=== PATIENT | female | born 1970 | race Caucasian/White ===

== ENCOUNTER 2016-11-09 07:28 | Observation (INO) | payer OTHER ==
[~2016-11-09] VITALS: Ht 170.2 cm; Wt 64.7 kg
[2016-11-09] VITALS (7 sets, daily range): BP systolic 108–137; BP diastolic 65–89; PULSE 55–94; TEMP 36.3–37; O2SAT 93–100; Ht 170.2 cm; Wt 64.7 kg
[2016-11-09] MEDS ORDERED: SODIUM CHLORIDE 0.9% 1000ML 1,000 ML IV STA (07:46)
[2016-11-09] MEDS ORDERED: ONDANSETRON INJ 2 MG/ML 2 ML VIAL IV STA (07:46)
--- NOTE | 2016-11-09 07:57 | EMERGENCY ROOM VISIT NOTE ---
History Report prepared by Brina: Edward Buck Under the Supervision of: Dr. Cody Griffin M.D. First contact with patient: 07:38 Chief Complaint: GI ASSESSMENT Stated Complaint: BLEEDING,VOMITING BLOOD,BLOOD IN STOOL Nursing Triage Summary: pt to the ED with c/o vomitting blood and having blood in her stool with LUQ pain History of Present Illness The patient is a 46 year old female with a history of a bleeding ulcer and a partial gastrectomy who presents to the Emergency Room with complaints of a persistent illness that started yesterday. She says that she has been vomiting blood in addition to having blood in her stool. The patient states that she has had 3 episodes of vomiting since yesterday. She says that the blood in her vomit has been bright red, and the blood in her stool has been both bright and dark. The patient says that she is concerned that she is having another ulcer, as she is having similar symptoms as to when she has had ulcers previously. She adds that she has been having left upper quadrant abdominal pain that she describes as stabbing, with no radiation. The patient says that she has been lightheaded and dizzy, and can't keep anything down. She denies any loss of consciousness or urinary symptoms. The patient notes that she has not had any recent falls or head trauma. She is not on any blood thinners. She takes Topamax and Gabapentin daily for her migraines and neuropathy. She last had an endoscopy and colonoscopy 2 years ago, with no noted varices. She denies any recent sick contacts. The patient does have a history of a . She uses tobacco products, but does not drink alcohol or use recreational drugs. Source of History: patient Onset: Yesterday Position: other (global - illness) Timing: other (persistent) Associated Symptoms: + nausea, + vomiting (blood), + abdominal pain (LUQ), + hematochezia, No LOC, No urinary symptoms Note: Associated symptoms: Lightheaded, dizzy. Denies any recent trauma. Review of Systems See HPI for pertinent positives and negatives. A total of ten systems were reviewed and were otherwise negative. Past Medical & Surgical Medical Problems: (1) GI bleed (2) Migraines (3) Neuropathy Surgical Problems: (1) H/O section (2) History of gastrectomy (3) Ulcer Family History Diabetes mellitus FH: cancer Hypertension Social History Smoking Status: Current Every Day Smoker Alcohol Use: none Drug Use: none Marital Status: single Occupation Status: employed Current/Historical Medications Scheduled Gabapentin (Neurontin), 800 MG PO TID Topiramate (Topamax), 50 MG PO BID Allergies Coded Allergies: Ketorolac Tromethamine (Unverified Allergy, Intermediate, SWELLING/HIVES, 11/09/16) Physical Exam Vital Signs Date Time Temp Pulse Resp B/P (MAP) Pulse Ox O2 Delivery O2 Flow Rate FiO2 11/09/16 09:03 69 17 99 11/09/16 08:33 73 12 11/09/16 08:28 73 18 11/09/16 08:25 72 11/09/16 07:40 132/89 11/09/16 07:32 36.8 91 18 136/77 97 Physical Exam GENERAL: Well appearing but looks anxious. HENT: Normocephalic, atraumatic. Oropharynx unremarkable. EYES:. Sclera non-icteric. NECK: Supple. No nuchal rigidity. FROM. No JVD. RESPIRATORY: Clear to auscultation. CARDIAC: Regular rate, normal rhythm. Extremities warm and well perfused. Pulses equal. ABDOMEN: Soft, non-distended. Tenderness in epigastric and left upper quadrant, no rebound, no guarding. RECTAL: No gross blood, non-melenic stool, negative Hemoccult. LOWER EXTREMITIES: Calves are equal size bilaterally and non-tender. No edema. No discoloration. NEURO: GCS of 15. Ambulates without difficulty. SKIN: No rash or jaundice noted. Medical Decision & Procedures Laboratory Results 11/09/16 08:09 Red Blood Count 4.44, Mean Corpuscular Volume 89.0, Mean Corpuscular Hemoglobin 27.0, Mean Corpuscular Hemoglobin Concent 30.4, Mean Platelet Volume 9.3, Neutrophils (%) (Auto) 65.0, Lymphocytes (%) (Auto) 28.3, Monocytes (%) (Auto) 4.5, Eosinophils (%) (Auto) 1.6, Basophils (%) (Auto) 0.5, Neutrophils # (Auto) 5.75, Lymphocytes # (Auto) 2.50, Monocytes # (Auto) 0.40, Eosinophils # (Auto) 0.14, Basophils # (Auto) 0.04 11/09/16 08:09 Test 8/2/17 08:09 White Blood Count 8.84 K/uL (4.8-10.8) Red Blood Count 4.44 M/uL (4.2-5.4) Hemoglobin 12.0 g/dL (12.0-16.0) Hematocrit 39.5 % (37-47) Mean Corpuscular Volume 89.0 fL (80-100) Mean Corpuscular Hemoglobin 27.0 pg (25-34) Mean Corpuscular Hemoglobin Concent 30.4 g/dl (32-36) Platelet Count 208 K/uL (130-400) Mean Platelet Volume 9.3 fL (7.4-10.4) Neutrophils (%) (Auto) 65.0 % Lymphocytes (%) (Auto) 28.3 % Monocytes (%) (Auto) 4.5 % Eosinophils (%) (Auto) 1.6 % Basophils (%) (Auto) 0.5 % Neutrophils # (Auto) 5.75 K/uL (1.4-6.5) Lymphocytes # (Auto) 2.50 K/uL (1.2-3.4) Monocytes # (Auto) 0.40 K/uL (0.11-0.59) Eosinophils # (Auto) 0.14 K/uL (0-0.5) Basophils # (Auto) 0.04 K/uL (0-0.2) RDW Standard Deviation 73.4 fL (36.4-46.3) RDW Coefficient of Variation 23.2 % (11.5-14.5) Immature Granulocyte % (Auto) 0.1 % Immature Granulocyte # (Auto) 0.01 K/uL (0.00-0.02) Anisocytosis PRESENT Prothrombin Time 10.7 SECONDS (9.0-12.0) Prothromb Time International Ratio 1.0 (0.9-1.1) Activated Partial Thromboplast Time 27.5 SECONDS (21.0-31.0) Partial Thromboplastin Ratio 1.1 Anion Gap 7.0 mmol/L (3-11) Est Creatinine Clear Calc Drug Dose 110.9 ml/min Estimated GFR () 125.1 Estimated GFR (Non- 108.0 BUN/Creatinine Ratio 19.8 (10-20) Calcium Level 7.8 mg/dl (8.5-10.1) Total Bilirubin 0.1 mg/dl (0.2-1) Direct Bilirubin < 0.1 mg/dl (0-0.2) Aspartate Amino Transf (AST/SGOT) 19 U/L (15-37) Alanine Aminotransferase (ALT/SGPT) 26 U/L (12-78) Alkaline Phosphatase 45 U/L (45-117) Total Protein 6.3 gm/dl (6.4-8.2) Albumin 3.3 gm/dl (3.4-5.0) Globulin 3.0 gm/dl (2.5-4.0) Albumin/Globulin Ratio 1.1 (0.9-2) Lipase 136 U/L (73-393) Laboratory results reviewed by me Medications Administered Medications (Trade) Dose Ordered Sig/Saurabh Route Start Time Stop Time Status Last Admin Dose Admin Sodium Chloride 1,000 ml @ 999 mls/hr Q1H1M STAT IV 11/09/16 07:46 11/09/16 08:46 DC 11/09/16 08:32 999 MLS/HR Ondansetron HCl (Zofran Inj) 4 mg NOW STAT IV 11/09/16 07:46 11/09/16 07:50 DC 11/09/16 08:31 4 MG Pantoprazole Sodium 80 mg/ Dextrose 120 ml @ 480 mls/hr TODAY@0800 ONCE IV 11/09/16 08:00 11/09/16 08:14 DC 11/09/16 08:32 480 MLS/HR Pantoprazole Sodium 40 mg/ Dextrose 100 ml @ 20 mls/hr Q5H IV 11/09/16 08:15 11/09/16 13:14 DC 11/09/16 08:32 20 MLS/HR Morphine Sulfate (MoRPHine SULFATE INJ) 4 mg NOW STAT IV 11/09/16 08:49 11/09/16 08:50 DC 11/09/16 08:56 4 MG ED Course 0738: The patient was evaluated in room B6. A complete history and physical exam was performed. 0746: Ordered Protonix IV Bolus/Drip 1 ea IV, Zofran Inj 4 mg IV, NSS 1000 ml @ 999 mls/hr IV. 0800: Ordered Pantoprazole Sodium 80 mg/Dextrose 120 ml @ 480 mls/hr IV. 0814: I reevaluated and performed a rectal exam on the patient. 0815: Ordered Pantoprazole Sodium 40 mg/Dextrose 100 ml @ 20 mls/hr IV. 0849: Ordered Morphine Sulfate Inj 4 mg IV. 0851: Upon reexamination, the patient was resting comfortably. I discussed the test results and treatment plan with her. She expressed understanding and agreement with the treatment plan. The patient will be evaluated for further management. 911: I discussed the patient with Dr. Saran ruiz - he will evaluate the patient for further treatment. Medical Decision Differential diagnosis includes but is not limited to: peptic ulcer disease, upper GI bleed, lower GI bleed, gastritis, gastroenteritis, IBD. 46-year-old white female past with history of PUD status post gastrectomy and history of alcohol abuse who presents with chief complaint of hematemesis as well as bright red blood per rectum. Patient states she is concerned as she has had a history of a gastric ulcer in the past. Patient does admit to smoking but denies any alcohol or drug abuse. Patient does not have any history of inflammatory bowel disease and no history of variceal bleeds. Patient states that she had an endoscopy completed 2 years ago in [place]. Patient had labs were completed which showed a fairly normal hemoglobin and normal coags and platelets. Patient had a negative Hemoccult. However, in light of her purported hematemesis and her history of PUD status post gastrectomy I spoke with the hospitalist service who agreed that patient would benefit from an observation period in the hospital for further evaluation observation and management. Head Trauma GCS Score: 15 Medication Reconcilliation Current Medication List: was personally reviewed by me Blood Pressure Screening Patient's blood pressure: Elevated blood pressure Blood pressure disposition: Elevated BP felt to be situational Consults Time Called: 904 Consulting Physician: Dr. Saran ruiz Returned Call: 911 I discussed the patient with Dr[facility] the patient for further treatment. Impression Primary Impression: Upper GI bleed Scribe Attestation The scribe's documentation has been prepared under my direction and personally reviewed by me in its entirety. I confirm that the note above accurately reflects all work, treatment, procedures, and medical decision making performed by me. Departure Information Dispostion Being Evaluated By Hospitalist Referrals No Doctor, Assigned (PCP) Patient Instructions My [facility]
[2016-11-09] MEDS ORDERED: PANTOprazole INJ 80 MG in DEXTROSE 5% 100ML IV ONE (08:00)
[2016-11-09] MEDS ORDERED: PANTOprazole INJ 40 MG in DEXTROSE 5% 100ML IV SCH (08:15)
[2016-11-09] MEDS ORDERED: GABA800T PO (08:20)
[2016-11-09] MEDS ORDERED: TOPI50TA24 PO (08:20)
[2016-11-09 08:25] LABS: BASO % 0.5 %; BASO ABS # 0.04 K/uL (0-0.2); EOS % 1.6 %; HEMATOCRIT 39.5 % (37-47); IG% 0.1 %; LYMPH % 28.3 %; MEAN CORPUSCULAR HGB CONC 30.4 g/dl (32-36); MEAN PLATELET VOLUME 9.3 fL (7.4-10.4); MONO % 4.5 %; PLATELET COUNT 208 K/uL (130-400); RED BLOOD COUNT 4.44 M/uL (4.2-5.4); WHITE BLOOD COUNT 8.84 K/uL (4.8-10.8)
[2016-11-09 08:34] LABS: PARTIAL THROMBOPLASTIN RATIO 1.1; PROTHROMBIN TIME (PATIENT) 10.7 SECONDS (9.0-12.0)
[2016-11-09 08:42] LABS: BLOOD UREA NITROGEN 12 mg/dl (7-18); CREATININE 0.61 mg/dl (0.60-1.20); GLUCOSE 79 mg/dl (70-99)
[2016-11-09 08:43] LABS: ALT/SGPT 26 U/L (12-78); BUN/CREATININE RATIO 19.8 (10-20); CALCIUM 7.8 mg/dl (8.5-10.1); CARBON DIOXIDE 21 mmol/L (21-32); CHLORIDE 114 mmol/L (98-107); POTASSIUM 3.5 mmol/L (3.5-5.1); SODIUM 142 mmol/L (136-145)
[2016-11-09 08:45] LABS: ALB/GLOB RATIO 1.1 (0.9-2); ALKALINE PHOSPHATASE 45 U/L (45-117); AST/SGOT 19 U/L (15-37)
[2016-11-09] MEDS ORDERED: MoRPHine SULFATE 4 MG/ML 1 ML CARP\\VIAL IV STA (08:49)
[2016-11-09 08:50] LABS: ANISOCYTOSIS PRESENT; COMPLETE YES
[2016-11-09] MEDS ORDERED: ONDANSETRON INJ 2 MG/ML 2 ML VIAL IV PRN (09:45)
[2016-11-09] MEDS ORDERED: ACETAMINOPHEN 325 MG TAB PO PRN (09:45)
[2016-11-09] MEDS ORDERED: IV FLUIDS COMPLETED PRN (10:00)
[2016-11-09] MEDS ORDERED: OPTIRAY 320 IV PRN (10:45)
[2016-11-09] MEDS: HYDROmorphone INJ 0.5 MG/0.5 ML SYR IV PRN ×3 (11:00→21:13)
--- NOTE | 2016-11-09 11:03 | History and Physical ---
History & Physical Date & Time of Service: Nov 09, 2016 at 10:26 Chief Complaint: Bleeding,Vomiting Blood,Blood In Stool Primary Care Physician: No Doctor, Assigned History of Present Illness Source: patient, hospital records This is a 46F with PMH of H. Pylori gastric ulcer s/p partial gastrectomy 2007 who presents with GI bleeding. Patient moved here few days ago from [place] and is staying in [facility]. She reports diarrhea for 1.5 weeks with intermittent bright red blood mixed in the stool. Then since yesterday had 3 episodes of vomiting bright red blood. Yesterday also developed dark tarry stool mixed with bright red blood, noting that today bright red blood filled the toilet. For past 1-2 days has LUQ stabbing pain non-radiating and soreness across lower abdomen. Pain is worse with ambulating. Still feeling pain and nausea despite morphine and Zofran given in ER. States she can't keep anything down including meds. Has been lightheaded and fatigued. Denies fever, chills, syncope, chest pain, SOB, coffee ground emesis, urinary changes. Denies taking NSAIDs or blood thinners. Denies etoh use. No recent travel, sick contact , recent abx use. Her gastrectomy was done in [place]. Last EGD was 2+ years ago ? in [place] area. Last colonoscopy 2+ years ago showed diverticulosis and polyps per patient. In the ED patient's Hg is 12.0. Vitals are stable. Hemoccult was negative for ER provider. Past Medical/Surgical History Medical Problems: (1) Migraines Status: Chronic (2) Neuropathy Status: Chronic Surgical Problems: (1) H/O section Status: Chronic (2) History of gastrectomy Status: Resolved (3) Ulcer Status: Resolved Family History Diabetes mellitus FH: cancer Hypertension Social History Smoking Status: Current Every Day Smoker (/ ppd) Alcohol Use: none Drug Use: none Housing status: other (staying in [facility]. moved here a few days ago from [place]. ) Multi-Drug Resistant Organisms History of MDRO: No Allergies Coded Allergies: Ketorolac Tromethamine (Unverified Allergy, Intermediate, SWELLING/HIVES, 11/09/16) Home Medications Scheduled Gabapentin (Neurontin), 800 MG PO TID Topiramate (Topamax), 50 MG PO BID Review of Systems Ten systems reviewed and negative except as noted in HPI. Physical Exam Vital Signs Date Time Temp Pulse Resp B/P (MAP) Pulse Ox O2 Delivery O2 Flow Rate FiO2 11/09/16 09:33 66 13 11/09/16 09:03 69 17 99 11/09/16 08:33 73 12 11/09/16 08:28 73 18 11/09/16 08:25 72 11/09/16 07:40 132/89 11/09/16 07:32 36.8 91 18 136/77 97 General Appearance: WD/WN, + mild distress (anxious, becomes mildly tearful during examination), + pertinent finding (alert coopeartive 46 y/o female) Head: normocephalic, atraumatic Eyes: normal inspection, PERRL, EOMI ENT: hearing grossly normal, pharynx normal Neck: supple, trachea midline Respiratory/Chest: lungs clear, normal breath sounds, no respiratory distress, no accessory muscle use Cardiovascular: regular rate, rhythm, no murmur Abdomen/GI: normal bowel sounds, soft, + pertinent finding (tender in LUQ) Back: no CVA tenderness Extremities/Musculoskelatal: no calf tenderness, no pedal edema Neurologic/Psych: alert, oriented x 3, + pertinent finding (anxious) Skin: normal color, warm/dry Diagnostics Laboratory Results Results Past 24 Hours Test 11/09/16 08:09 11/09/16 09:43 Range/Units White Blood Count 8.84 4.8-10.8 K/uL Red Blood Count 4.44 4.2-5.4 M/uL Hemoglobin 12.0 12.0-16.0 g/dL Hematocrit 39.5 37-47 % Mean Corpuscular Volume 89.0 80-100 fL Mean Corpuscular Hemoglobin 27.0 25-34 pg Mean Corpuscular Hemoglobin Concent 30.4 32-36 g/dl Platelet Count 208 130-400 K/uL Mean Platelet Volume 9.3 7.4-10.4 fL Neutrophils (%) (Auto) 65.0 % Lymphocytes (%) (Auto) 28.3 % Monocytes (%) (Auto) 4.5 % Eosinophils (%) (Auto) 1.6 % Basophils (%) (Auto) 0.5 % Neutrophils # (Auto) 5.75 1.4-6.5 K/uL Lymphocytes # (Auto) 2.50 1.2-3.4 K/uL Monocytes # (Auto) 0.40 0.11-0.59 K/uL Eosinophils # (Auto) 0.14 0-0.5 K/uL Basophils # (Auto) 0.04 0-0.2 K/uL RDW Standard Deviation 73.4 36.4-46.3 fL RDW Coefficient of Variation 23.2 11.5-14.5 % Immature Granulocyte % (Auto) 0.1 % Immature Granulocyte # (Auto) 0.01 0.00-0.02 K/uL Anisocytosis PRESENT Prothrombin Time 10.7 9.0-12.0 SECONDS Prothromb Time International Ratio 1.0 0.9-1.1 Activated Partial Thromboplast Time 27.5 21.0-31.0 SECONDS Partial Thromboplastin Ratio 1.1 Sodium Level 142 136-145 mmol/L Potassium Level 3.5 3.5-5.1 mmol/L Chloride Level 114 98-107 mmol/L Carbon Dioxide Level 21 21-32 mmol/L Anion Gap 7.0 3-11 mmol/L Blood Urea Nitrogen 12 7-18 mg/dl Creatinine 0.61 0.60-1.20 mg/dl Est Creatinine Clear Calc Drug Dose 110.9 ml/min Estimated GFR () 125.1 Estimated GFR (Non- 108.0 BUN/Creatinine Ratio 19.8 10-20 Random Glucose 79 70-99 mg/dl Calcium Level 7.8 8.5-10.1 mg/dl Total Bilirubin 0.1 0.2-1 mg/dl Direct Bilirubin < 0.1 0-0.2 mg/dl Aspartate Amino Transf (AST/SGOT) 19 15-37 U/L Alanine Aminotransferase (ALT/SGPT) 26 12-78 U/L Alkaline Phosphatase 45 45-117 U/L Total Protein 6.3 6.4-8.2 gm/dl Albumin 3.3 3.4-5.0 gm/dl Globulin 3.0 2.5-4.0 gm/dl Albumin/Globulin Ratio 1.1 0.9-2 Lipase 136 73-393 U/L Impression Assessment and Plan GI BLEED Presents with hematemesis, hematochezia, melena, LUQ pain, diarrhea Likely upper source Hx of H. Pylori gastric ulcer s/p partial gastrectomy 2007 No further bleeding in ER Hg is 12, VSS, hemoccult negative for ER provider NPO; IVF's; continue Protonix drip started in ER Check CT a/p, stool studies, etoh level Check H/H q8h Pain control with low dose Dilaudid- checked [place] drug database, recently filled 10 tabs of Tramadol 10/06/16, no issues identified Consult GI; discussed with Carol Matta, appreciate input HX MIGRAINE Hold Topamax while NPO NEUROPATHY Hold gabapentin while NPO DVT PROPHYLAXIS SCD's due to GIB FULL CODE DISPOSITION Observation to telemetry Recently moved here from [place], needs local follow up Patient seen in collaboration with Dr. Parra. Please see his addendum. Attending Note: Patient is a 46 yr female presents with history of bleeding per rectum, melena, hematemesis, diarrhea, nausea and vomiting and left sided abdominal pain.She reports abd pain worse with food intake. Had h/o H. Pylori gastric ulcer s/p partial gastrectomy in 2007. Denies use of NSAIDs, blood thinners or alcohol use , recent antibiotic use. Also has h/o diverticulosis and polyps as per patient. Physical Exam: Vitals signs as noted above General Appearance:Moderately built and nourished, no apparent distress Head: normocephalic, Atraumatic Eyes: normal inspection, EOMI, PERRL Neck: supple, Trachea midline Respiratory/Chest: Normal breath sounds, CTA Cardiovascular: S1, S2, No murmur Abdomen/GI:Soft, LLQ and LUQ tender, Bowel sounds present Extremities/Musculoskelatal:normal inspection, no edema Neurologic/Psych:AAOX3, grossly no focal neurological deficits Skin:normal color,warm Assessment and Plan: Bleeding Per rectum/Abdominal pain Also states melena,hematochezia H/O PUD and partial gastrectomy in 2007 CT ABD: unremarkable EGD done today could not be completed secondary to retained food contents Planned for EGD in AM Continue PPI If upper endoscopy is negative: likely plan is outpatient colonoscopy for intermittent hematochezia Monitor Hb Transfuse PRN Follow up stool studies I personally reviewed the record. Patient is interviewed and examined at bedside. Patient's care is coordinated with Dominique Gibbons PA-C. Please refer to the documentation above for details of patient's presentation and for discussion of other issues. Advanced Directives Existing Living Will: No Existing Power of Reporting Coordinator: No VTE Prophylaxis VTE Risk Assessment Done? Y/N: Yes Risk Level: Low
--- NOTE | 2016-11-09 11:13 | Gastrointestinal Consultation ---
Gastrointestinal Consultation Date of Consultation: Nov 09, 2016 Consulting Physician: Azam Reason for Consultation: GIB History of Present Illness Patient is a 46 year old female with history of neuropathy, migraines, H.Pylori and gastric ulcers s/p partial gastrectomy in 2007 who presented to the ED for evaluation of severe abdominal pain, rectal bleeding and hematemesis. Pt was seen and evaluated. She has just been transferred from the ED. She tells me for the past two weeks she has had daily BRBPR. There was abdominal cramping associated with this. At that time, no nausea or vomiting. Over the past week, she developed dark, sticky stools, nausea and vomiting. There is associated LUQ pain and epigastric pain worse with PO intake and BMs. Pain is constant and explained as sharp stabbing. She is not on PPI as outpatient. She tells me her emesis has been on numerous occasions and is all bright red. No coffee ground emesis. She is not symptomatic of her blood loss. No lightheadedness, dizziness , chest pain, SOB. No sick contacts. She has just moved to [place] from [facility]. No NSAIDs. No anticoagulation. No ETOH. Denies hx of liver disease. Hemoccult on stool was negative in the ED. VSS. H&H stable. Stat CT was ordered. Past Medical/Surgical History Medical Problems: (1) Upper GI bleed Status: Acute Past Medical History: neuropathy, PUD, constipation, migraines Past Surgical History: c.section, partial gastrectomy, colonoscopy, EGD, Family History Diabetes mellitus FH: cancer Hypertension Social History Smoking Status: Current Every Day Smoker (1/2 ppd) Alcohol Use: none Drug Use: none Allergies Coded Allergies: Ketorolac Tromethamine (Unverified Allergy, Intermediate, SWELLING/HIVES, 11/09/16) Current Medications Home Meds and Scripts Medications Dose Route/Sig Max Daily Dose Days Date Category Topamax (Topiramate) 50 Mg Tab 50 Mg PO BID 11/09/16 Reported Neurontin (Gabapentin) 800 Mg Tab 800 Mg PO TID 11/09/16 Reported Review of Systems Constitutional: No fever, No chills Respiratory: No cough Cardiac: No chest pain Abdomen: + pain, + nausea, + vomiting, + diarrhea, + GI bleeding, No constipation Endo: No fatigue Physical Exam Date Time Temp Pulse Resp B/P (MAP) Pulse Ox O2 Delivery O2 Flow Rate FiO2 8/2/17 09:40 99 11/09/16 09:33 66 13 11/09/16 09:03 69 17 99 11/09/16 08:33 73 12 11/09/16 08:28 73 18 11/09/16 08:25 72 11/09/16 07:40 132/89 11/09/16 07:32 36.8 91 18 136/77 97 General Appearance: + mild distress Eyes: PERRL ENT: hearing grossly normal Neck: supple Respiratory/Chest: lungs clear, normal breath sounds Cardiovascular: regular rate, rhythm, no edema Abdomen: normal bowel sounds, no organomegaly, no pulsatile mass, + tenderness Neurologic/Psych: alert, normal mood/affect, oriented x 3 Skin: normal color Laboratory Results Last 24 Hours Test 11/09/16 08:09 11/09/16 10:56 White Blood Count 8.84 K/uL Red Blood Count 4.44 M/uL Hemoglobin 12.0 g/dL Hematocrit 39.5 % Mean Corpuscular Volume 89.0 fL Mean Corpuscular Hemoglobin 27.0 pg Mean Corpuscular Hemoglobin Concent 30.4 g/dl Platelet Count 208 K/uL Mean Platelet Volume 9.3 fL Neutrophils (%) (Auto) 65.0 % Lymphocytes (%) (Auto) 28.3 % Monocytes (%) (Auto) 4.5 % Eosinophils (%) (Auto) 1.6 % Basophils (%) (Auto) 0.5 % Neutrophils # (Auto) 5.75 K/uL Lymphocytes # (Auto) 2.50 K/uL Monocytes # (Auto) 0.40 K/uL Eosinophils # (Auto) 0.14 K/uL Basophils # (Auto) 0.04 K/uL RDW Standard Deviation 73.4 fL RDW Coefficient of Variation 23.2 % Immature Granulocyte % (Auto) 0.1 % Immature Granulocyte # (Auto) 0.01 K/uL Anisocytosis PRESENT Prothrombin Time 10.7 SECONDS Prothromb Time International Ratio 1.0 Activated Partial Thromboplast Time 27.5 SECONDS Partial Thromboplastin Ratio 1.1 Sodium Level 142 mmol/L Potassium Level 3.5 mmol/L Chloride Level 114 mmol/L Carbon Dioxide Level 21 mmol/L Anion Gap 7.0 mmol/L Blood Urea Nitrogen 12 mg/dl Creatinine 0.61 mg/dl Est Creatinine Clear Calc Drug Dose 110.9 ml/min Estimated GFR () 125.1 Estimated GFR (Non- 108.0 BUN/Creatinine Ratio 19.8 Random Glucose 79 mg/dl Calcium Level 7.8 mg/dl Total Bilirubin 0.1 mg/dl Direct Bilirubin < 0.1 mg/dl Aspartate Amino Transf (AST/SGOT) 19 U/L Alanine Aminotransferase (ALT/SGPT) 26 U/L Alkaline Phosphatase 45 U/L Total Protein 6.3 gm/dl Albumin 3.3 gm/dl Globulin 3.0 gm/dl Albumin/Globulin Ratio 1.1 Lipase 136 U/L Impression Patient is a 46 year old female with a two week history of BRBPR now with melena and hematemesis. She has LLQ pain and LUQ and epigastric pain worse with PO intake and BM. She has a history of PUD and partial gastrectomy in 2007. VSS. Labs for ETOH obtained in ED as question of ETOH smell - pending. She is going to CT now. Plan NPO Stat CT scan --> she is heading down to CT now IV PPI Trend H&H Transfuse as needed EGD Further recommendation pending results of EGD Call with questions or concerns. I saw and evaluated the patient. We are consult at for evaluation of hematemesis and a history of melena. Of note she had a history of an antrectomy for refractory peptic ulcer disease about 10 years ago. She denies having any fevers chills sweats or difficulty with swallowing. She denies taking any nonsteroidals. Physical examination No obvious distress Mild epigastric tenderness Impression: Patient with a history of peptic ulcer disease presenting for a question of hematemesis and melena. We will plan to proceed with an upper endoscopy. She also notes having intermittent hematochezia. Given this we will likely recommend an outpatient colonoscopy. Plan EGD today
[2016-11-09] MEDS: SODIUM CHLORIDE 0.9% 1000ML 1,000 ML IV SCH ×2 (11:15→21:10)
--- NOTE | 2016-11-09 12:00 | DIAGNOSTIC IMAGING REPORT ---
CT ABD/PELVIS IV CONTRAST ONLY CLINICAL HISTORY: GI bleeding. Abdominal pain. Diarrhea. COMPARISON STUDY: None. TECHNIQUE: Following the IV administration of 119 mL of Optiray-320, CT scan of the abdomen and pelvis was performed from the lung bases to the proximal femurs. Images are reviewed in the axial, sagittal, and coronal planes. IV contrast was administered without complication. A dose lowering technique was utilized adhering to the principles of ALARA. CT DOSE: 288.61 mGy.cm FINDINGS: Lower chest: There are mild basilar atelectatic changes Liver: The contrast-enhanced liver is normal in size, contour, and attenuation. There is no intrahepatic biliary ductal dilatation. The hepatic veins and portal veins are patent. Gallbladder: Unremarkable. Spleen: Normal in size and attenuation. Pancreas: Unremarkable. Adrenal glands: Unremarkable. Kidneys: There is symmetric renal cortical enhancement. The kidneys are normal in size without hydronephrosis. Bowel: There are no transition zones indicate bowel obstruction. The appendix appears normal. There is no acute diverticulitis. Bowel evaluation is limited as no enteric contrast was administered. Peritoneum: There is no intraperitoneal free air or abdominal ascites. Vasculature: The abdominal aorta is normal in course and caliber. Adenopathy: None. Pelvic viscera: The bladder, and pelvic viscera are unremarkable. Skeletal structures: No destructive osseous lesions are seen. IMPRESSION: 1. No evidence of bowel obstruction. No evidence of free air 2. Normal appendix 3. No evidence of acute diverticulitis 4. No acute inflammatory changes Electronically signed by: Jalil Armstrong M.D. 11/09/2016 11:58 AM Dictated Date/Time: 11/09/2016 11:53 AM
[2016-11-09] MEDS ORDERED: MIDAZOLAM HCL 1 MG/ML 2ML VIAL ONE (12:53)
[2016-11-09] MEDS ORDERED: FENTANYL CITRATE INJ 50 MCG/1 ML 2 ML VIAL ONE (12:53)
--- NOTE | 2016-11-09 13:06 | GI REPORT ---
Procedure Date: 11/09/2016 12:51 PM Procedure: Upper GI endoscopy Indications: Hematemesis, Melena Medicines: Monitored Anesthesia Care Complications: No immediate complications. Estimated blood loss: Minimal. Estimated Blood Loss: Estimated blood loss was minimal. Procedure: Pre-Anesthesia Assessment: - Prior to the procedure, a History and Physical was performed, and patient medications, allergies and sensitivities were reviewed. The patient's tolerance of previous anesthesia was reviewed. - The risks and benefits of the procedure and the sedation options and risks were discussed with the patient. All questions were answered and informed consent was obtained. - Patient identification and proposed procedure were verified prior to the procedure by the physician, the nurse and the stone finisher. The procedure was verified in the procedure room. - Pre-procedure physical examination revealed no contraindications to sedation. - ASA Grade Assessment: III - A patient with severe systemic disease. - After reviewing the risks and benefits, the patient was deemed in satisfactory condition to undergo the procedure. - The anesthesia plan was to use monitored anesthesia care (MAC). - Immediately prior to administration of medications, the patient was re-assessed for adequacy to receive sedatives. - The heart rate, respiratory rate, oxygen saturations, blood pressure, adequacy of pulmonary ventilation, and response to care were monitored throughout the procedure. - The physical status of the patient was re-assessed after the procedure. After obtaining informed consent, the endoscope was passed under direct vision. Throughout the procedure, the patient's blood pressure, pulse, and oxygen saturations were monitored continuously. The scope was introduced through the mouth, with the intention of advancing to the stomach. The scope was advanced to the gastric body before the procedure was aborted. Medications were given. The upper GI endoscopy was accomplished without difficulty. The patient tolerated the procedure well. Findings: The examined esophagus was normal. Evidence of an antrectomy was found in the gastric body. A medium amount of food (residue) was found in the gastric body. Impression: - Normal esophagus. - An antrectomy was found. - A medium amount of food (residue) in the stomach. - No specimens collected. Recommendation: - [facility]. - Repeat the upper endoscopy tomorrow because the preparation was poor. Singh Nascimento D.O. Singh Nascimento DO 11/09/2016 1:05:32 PM This report has been signed electronically. Note Initiated On: 11/09/2016 12:51 PM I attest to the content of the Intraoperative Record and orders documented therein, exceptions below
[2016-11-09] MEDS ORDERED: PROPOFOL IV EMULSION 10 MG/ML 20 ML VIAL IV ONE (13:19)
[2016-11-09] MEDS ORDERED: LIDOCAINE HCL 2% 2 ML VIAL (20MG/ML) ONE (13:19)
--- NOTE | 2016-11-09 13:41 | Anesthesiology Progress Note ---
Anesthesia Post Op Note Date & Time Nov 09, 2016 at 13:41 Vital Signs Pain Intensity: 3 Vital Signs Past 12 Hours Date Time Temp Pulse Resp B/P (MAP) Pulse Ox O2 Delivery O2 Flow Rate FiO2 11/09/16 13:25 52 18 123/84 (97) 100 Room Air 11/09/16 13:10 55 20 112/67 (82) 100 Mask 15 11/09/16 11:54 37.0 61 16 130/89 (103) 100 11/09/16 11:52 36.6 51 18 140/74 (96) 100 Room Air 11/09/16 09:40 99 11/09/16 09:33 66 13 11/09/16 09:03 69 17 99 11/09/16 08:33 73 12 11/09/16 08:28 73 18 11/09/16 08:25 72 11/09/16 07:40 132/89 11/09/16 07:32 36.8 91 18 136/77 97 Notes Mental Status: alert / awake / arousable, participated in evaluation Pt Amnestic to Procedure: Yes Nausea / Vomiting: adequately controlled Pain: adequately controlled Airway Patency, RR, SpO2: stable & adequate BP & HR: stable & adequate Hydration State: stable & adequate Anesthetic Complications: no major complications apparent
[2016-11-09] MEDS ORDERED: METOCLOPRAMIDE HCL INJ 5 MG/ML 2 ML VIAL IV STA (13:47)
--- NOTE | 2016-11-09 13:49 | Progress Note ---
Progress Note Date of Service Nov 09, 2016. Progress Note Upper endoscopy attempted this afternoon. We were unable to complete a full examination due to retained food contents. There was no evidence of blood within the residual stomach Recommendations Reglan 1 May give clear liquids today We will repeat upper endoscopy on If upper endoscopy is negative would recommend outpatient colonoscopy for intermittent hematochezia
[2016-11-09] MEDS: PANTOprazole INJ 40 MG in DEXTROSE 5% 100ML IV SCH ×3 (14:40→23:38)
[2016-11-09] MEDS ORDERED: ACETAMINOPHEN IV 650 MG in EMPTY BAG 0 ML IV PRN (19:45)
[2016-11-09] MEDS: TRAMADOL HCL 50 MG TAB PO PRN (19:48)
[2016-11-09] MEDS: GABAPENTIN 800 MG TAB PO SCH (21:07)
[2016-11-09] MEDS: TOPIRAMATE 25 MG TAB PO SCH (21:08)
[2016-11-10] VITALS (12 sets, daily range): BP systolic 104–141; BP diastolic 62–85; PULSE 49–64; TEMP 36.4–37.2; O2SAT 95–100
[2016-11-10] MEDS: TRAMADOL HCL 50 MG TAB PO PRN ×3 (01:58→19:02)
[2016-11-10] MEDS: HYDROmorphone INJ 0.5 MG/0.5 ML SYR IV PRN ×4 (03:32→22:37)
[2016-11-10] MEDS: PANTOprazole INJ 40 MG in DEXTROSE 5% 100ML IV SCH ×2 (04:17→09:21)
[2016-11-10] MEDS: SODIUM CHLORIDE 0.9% 1000ML 1,000 ML IV SCH ×2 (06:26→21:59)
[2016-11-10 07:48] LABS: BASO % 0.3 %; BASO ABS # 0.03 K/uL (0-0.2); EOS % 2.6 %; IG% 0.1 %; LYMPH % 20.9 %; LYMPH ABS # 1.84 K/uL (1.2-3.4); MEAN CELL VOLUME 89.4 fL (80-100); MEAN CORPUSCULAR HEMOGLOBIN 26.8 pg (25-34); MEAN PLATELET VOLUME 9.6 fL (7.4-10.4); MONO % 6.3 %; NEUT % 69.8 %; PLATELET COUNT 164 K/uL (130-400); RED BLOOD COUNT 4.36 M/uL (4.2-5.4); WHITE BLOOD COUNT 8.82 K/uL (4.8-10.8)
[2016-11-10 08:17] LABS: CREATININE 0.52 mg/dl (0.60-1.20)
[2016-11-10] MEDS: GABAPENTIN 800 MG TAB PO SCH ×4 (08:51→20:51)
[2016-11-10] MEDS: TOPIRAMATE 25 MG TAB PO SCH ×3 (08:52→20:51)
[2016-11-10 08:59] LABS: ANISOCYTOSIS PRESENT; COMPLETE YES; ECHINOCYTES 2+
--- NOTE | 2016-11-10 09:13 | Progress Note ---
Progress Note Date of Service Nov 10, 2016. Progress Note Pt was seen and evaluated. No acute changes overnight. She has been NPO for EGD this afternoon. EGD yesterday was aborted due to food in her stomach. She is complaining of upper abdominal pain and requesting IV dilaudid - this is not due until later this AM. She has received some Tylenol for her abdominal pain. CT 11/09/16: No evidence of bowel obstruction. No evidence of free air. Normal appendix. No evidence of acute diverticulitis. No acute inflammatory changes No acute distress, heart RRR, lungs CTA, abd soft, non-distended. NPO for EGD this afternoon. Outpatient colonoscopy EGD w/ evidence of chronic gastritis, biopsied. Consider adding QID Carafate. Outpatient colonoscopy. No GI contraindication to discharge, H&H stable and no evidence of GI bleeding
[2016-11-10] MEDS ORDERED: FENTANYL CITRATE INJ 50 MCG/1 ML 2 ML VIAL ONE (11:13)
[2016-11-10] MEDS ORDERED: LIDOCAINE HCL 2% 2 ML VIAL (20MG/ML) ONE (11:13)
[2016-11-10] MEDS ORDERED: PROPOFOL IV EMULSION 10 MG/ML 20 ML VIAL IV ONE (11:13)
--- NOTE | 2016-11-10 11:18 | Endo History and Physical ---
History & Physical Date of Service: Nov 10, 2016. Chief Complaint: Hematemesis Referring Physician: History of Present Illness Patient presents for repeat upper endoscopy today due to a question of hematemesis. Yesterday's procedure was aborted due to retained gastric contents. Past Surgical History Hx Cardiac Surgery: No Hx Abdominal Surgery: Yes (C section (1995), partial gastrectomy (2007)) Hx Post-Op Nausea and Vomiting: No Hx Cancer Surgery: No Hx Thoracic Surgery: No Hx Orthopedic: No Hx Urinary Tract Surgery: No Social History Smoking Status: Current Every Day Smoker Hx Substance Use: No (denies hx use, pt on IV Dilaudid prn here ) Hx Alcohol Use: No (denies) Allergies Coded Allergies: Ketorolac Tromethamine (Unverified Allergy, Intermediate, SWELLING/HIVES, 11/09/16) Current Medications Reported Home Medications Medications Dose Route/Sig Max Daily Dose Days Date Category Topamax (Topiramate) 50 Mg Tab 50 Mg PO BID 11/09/16 Reported Neurontin (Gabapentin) 800 Mg Tab 800 Mg PO TID 11/09/16 Reported Vital Signs Weight (Kilograms): 65.000 Height (Feet): 5 Height (Inches): 7.00 Date Time Temp Pulse Resp B/P (MAP) Pulse Ox O2 Delivery O2 Flow Rate FiO2 11/10/16 11:11 37.1 47 20 128/73 (91) 100 Room Air 11/10/16 11:01 36.9 49 16 132/68 (89) 99 Room Air 11/10/16 08:05 37.2 64 16 117/62 (80) 96 Room Air 11/10/16 07:30 96 Room Air 11/10/16 04:56 36.9 49 16 132/68 99 Room Air 11/10/16 04:11 36.5 52 16 104/63 (77) 96 Room Air 11/10/16 04:00 Room Air 11/10/16 00:00 Room Air 11/09/16 23:43 36.3 58 16 137/80 (99) 98 Room Air 11/09/16 20:10 Room Air 11/09/16 20:07 36.3 55 18 108/65 (79) 99 Room Air 11/09/16 16:10 Room Air 11/09/16 16:03 36.6 94 16 123/74 (90) 93 Room Air 11/09/16 14:26 100 Room Air 11/09/16 13:40 60 18 111/75 (87) 100 Room Air 11/09/16 13:25 52 18 123/84 (97) 100 Room Air 11/09/16 13:10 55 20 112/67 (82) 100 Mask 15 11/09/16 12:00 100 Room Air 11/09/16 11:54 37.0 61 16 130/89 (103) 100 11/09/16 11:52 36.6 51 18 140/74 (96) 100 Room Air Physical Exam General Appearance: no apparent distress Respiratory/Chest: Auscultation: breath sounds normal Cardiovascular: Heart Auscultation: RRR Abdomen: Inspection & Palpation: soft, RUQ tenderness Assessment and Plan Patient presenting with a question of hematemesis. We are planning for upper endoscopy today for further evaluation. We have discussed the risks and benefits to include bleeding, infection, perforation and aspiration.
--- NOTE | 2016-11-10 11:39 | Progress Note ---
Internal Med Progress Note Date of Service: Nov 10, 2016. Provider Documentation: SUBJECTIVE: Seen and examined at bedside. Got EGD today Denies nausea, vomiting. Abd pain is improving Diarrhea resolved. OBJECTIVE: Vital Signs-as noted below General Appearance:Moderately built and nourished, no apparent distress Head: normocephalic, Atraumatic Eyes: normal inspection, EOMI, PERRL Neck: supple, Trachea midline Respiratory/Chest: Normal breath sounds, CTA Cardiovascular: S1, S2, No murmur Abdomen/GI:Soft, LLQ and LUQ tender, Bowel sounds present Extremities/Musculoskelatal:normal inspection, no edema Neurologic/Psych:AAOX3, grossly no focal neurological deficits Skin:normal color,warm Lab data as noted below. ASSESSMENT & PLAN: Bleeding Per Rectum/Abdominal pain Also states melena,hematochezia H/O PUD and partial gastrectomy in 2007 CT ABD: unremarkable EGD done yesterday could not be completed secondary to retained food contents Repeat EGD today:mild gastritis. Biopsy from small intestine taken Continue PPI and Carafate plan is outpatient colonoscopy for intermittent hematochezia Monitor Hb: stable Transfuse PRN stool studies pending advance diet as tolerated H/O MIGRAINE continue Topamax NEUROPATHY on gabapentin DVT Px SCD's due to GIB Code Status: FULL CODE DISPOSITION Recently moved here from [place], needs local follow up Vital Signs: Date Time Temp Pulse Resp B/P (MAP) Pulse Ox O2 Delivery O2 Flow Rate FiO2 11/10/16 13:00 36.4 50 16 133/85 (101) 98 Room Air 11/10/16 12:28 36.6 51 16 114/73 (87) 96 Room Air 11/10/16 12:05 36.7 52 16 136/79 (98) 99 Room Air 11/10/16 12:00 95 Room Air 11/10/16 11:59 57 18 149/84 (105) 100 Room Air 11/10/16 11:52 49 20 118/71 (87) 98 Room Air 11/10/16 11:40 48 20 124/69 (87) 97 Room Air 11/10/16 11:37 62 20 118/63 (81) 97 Room Air 11/10/16 11:11 37.1 47 20 128/73 (91) 100 Room Air 11/10/16 11:01 36.9 49 16 132/68 (89) 99 Room Air 11/10/16 08:05 37.2 64 16 117/62 (80) 96 Room Air 11/10/16 07:30 96 Room Air 11/10/16 04:56 36.9 49 16 132/68 99 Room Air 11/10/16 04:11 36.5 52 16 104/63 (77) 96 Room Air 11/10/16 04:00 Room Air 11/10/16 00:00 Room Air 11/09/16 23:43 36.3 58 16 137/80 (99) 98 Room Air 11/09/16 20:10 Room Air 11/09/16 20:07 36.3 55 18 108/65 (79) 99 Room Air 11/09/16 16:10 Room Air 11/09/16 16:03 36.6 94 16 123/74 (90) 93 Room Air Lab Results: Results Past 24 Hours Test 11/09/16 22:04 11/10/16 07:26 11/10/16 11:14 Range/Units Hemoglobin 11.5 11.7 12.0-16.0 g/dL Hematocrit 37.0 39.0 37-47 % White Blood Count 8.82 4.8-10.8 K/uL Red Blood Count 4.36 4.2-5.4 M/uL Mean Corpuscular Volume 89.4 80-100 fL Mean Corpuscular Hemoglobin 26.8 25-34 pg Mean Corpuscular Hemoglobin Concent 30.0 32-36 g/dl Platelet Count 164 130-400 K/uL Mean Platelet Volume 9.6 7.4-10.4 fL Neutrophils (%) (Auto) 69.8 % Lymphocytes (%) (Auto) 20.9 % Monocytes (%) (Auto) 6.3 % Eosinophils (%) (Auto) 2.6 % Basophils (%) (Auto) 0.3 % Neutrophils # (Auto) 6.15 1.4-6.5 K/uL Lymphocytes # (Auto) 1.84 1.2-3.4 K/uL Monocytes # (Auto) 0.56 0.11-0.59 K/uL Eosinophils # (Auto) 0.23 0-0.5 K/uL Basophils # (Auto) 0.03 0-0.2 K/uL RDW Standard Deviation 72.6 36.4-46.3 fL RDW Coefficient of Variation 22.6 11.5-14.5 % Immature Granulocyte % (Auto) 0.1 % Immature Granulocyte # (Auto) 0.01 0.00-0.02 K/uL Anisocytosis PRESENT Echinocytes 2+ Creatinine 0.52 0.60-1.20 mg/dl Est Creatinine Clear Calc Drug Dose 130.1 ml/min Estimated GFR () 131.9 Estimated GFR (Non- 113.8
--- NOTE | 2016-11-10 11:42 | Anesthesiology Progress Note ---
Anesthesia Post Op Note Date & Time Nov 10, 2016 at 11:42 Vital Signs Pain Intensity: 0 Vital Signs Past 12 Hours Date Time Temp Pulse Resp B/P (MAP) Pulse Ox O2 Delivery O2 Flow Rate FiO2 11/10/16 11:37 62 20 118/63 (81) 97 Room Air 11/10/16 11:11 37.1 47 20 128/73 (91) 100 Room Air 11/10/16 11:01 36.9 49 16 132/68 (89) 99 Room Air 11/10/16 08:05 37.2 64 16 117/62 (80) 96 Room Air 11/10/16 07:30 96 Room Air 11/10/16 04:56 36.9 49 16 132/68 99 Room Air 11/10/16 04:11 36.5 52 16 104/63 (77) 96 Room Air 11/10/16 04:00 Room Air 11/10/16 00:00 Room Air 11/09/16 23:43 36.3 58 16 137/80 (99) 98 Room Air Notes Mental Status: alert / awake / arousable, participated in evaluation Pt Amnestic to Procedure: Yes Nausea / Vomiting: adequately controlled Pain: adequately controlled Airway Patency, RR, SpO2: stable & adequate BP & HR: stable & adequate Hydration State: stable & adequate Anesthetic Complications: no major complications apparent
--- NOTE | 2016-11-10 14:12 | Progress Note ---
Progress Note Date of Service Nov 10, 2016. Progress Note The patient underwent an upper endoscopy today without any problems. There was no evidence of upper GI bleeding or recent upper GI bleeding Findings Mild gastritis Billroth II reconstruction from her prior peptic ulcer disease Impression No evidence of upper GI bleeding. Biopsies taken from the small intestine due to her discomfort and stomach. Recommendations Consider Carafate 1-2 times daily Outpatient colonoscopy to be scheduled due to intermittent hematochezia Please call with any questions or concerns during the remainder of her hospital stay
[2016-11-10] MEDS: SUCRALFATE 1 GM TAB PO SCH (16:00)
[2016-11-10 20:19] LABS: HEMATOCRIT 43.1 % (37-47)
[2016-11-11] MEDS: TRAMADOL HCL 50 MG TAB PO PRN ×2 (01:45→08:07)
[2016-11-11 04:00] VITALS: BP 134/84; PULSE 60; TEMP 36.8; O2SAT 97
[2016-11-11] MEDS: HYDROmorphone INJ 0.5 MG/0.5 ML SYR IV PRN (05:19)
[2016-11-11] MEDS: SUCRALFATE 1 GM TAB PO SCH (05:23)
[2016-11-11 05:59] LABS: HEMATOCRIT 39.4 % (37-47)
[2016-11-11 07:34] VITALS: BP 145/87; PULSE 50; TEMP 36.9; O2SAT 98
[2016-11-11 08:00] VITALS: O2SAT 98
[2016-11-11] MEDS: TOPIRAMATE 25 MG TAB PO SCH (08:06)
[2016-11-11] MEDS: GABAPENTIN 800 MG TAB PO SCH (08:07)
[2016-11-11] MEDS ORDERED: PANTOprazole SOD 40 MG TAB PO SCH (09:00)
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
--- NOTE | 2016-11-11 09:56 | Progress Note ---
Internal Med Progress Note Date of Service: Nov 11, 2016. Provider Documentation: SUBJECTIVE: Seen and examined at bedside. States having mild LUQ abdominal pain but much improved Denies nausea, vomiting. Denies bleeding per rectum OBJECTIVE: Vital Signs-as noted below General Appearance:Moderately built and nourished, no apparent distress Head: normocephalic, Atraumatic Eyes: normal inspection, EOMI, PERRL Neck: supple, Trachea midline Respiratory/Chest: Normal breath sounds, CTA Cardiovascular: S1, S2, No murmur Abdomen/GI:Soft, mild LUQ tender, Bowel sounds present Extremities/Musculoskelatal:normal inspection, no edema Neurologic/Psych:AAOX3, grossly no focal neurological deficits Skin:normal color,warm Lab data as noted below. ASSESSMENT & PLAN: Bleeding Per Rectum/Abdominal pain Also states melena,hematochezia H/O PUD and partial gastrectomy in 2007 CT ABD: unremarkable EGD:mild gastritis. Biopsy from small intestine taken Continue PPI and Carafate per GI plan is outpatient colonoscopy for intermittent hematochezia Hb: mild drop likely hemodilutional. No active bleeding Tolerating diet Appreciate GI input H/O MIGRAINE continue Topamax NEUROPATHY on gabapentin DVT Px SCD's due to GIB Code Status: FULL CODE DISPOSITION Plan to discharge home today Follow up with on 11/15/16 at 2:05pm ([facility] office: [address] [place] [address] , [place] [id number]) Follow up with your materials recycler for colonoscopy as advised Seek immediate medical attention if your symptoms reoccur or worsen Vital Signs: Date Time Temp Pulse Resp B/P (MAP) Pulse Ox O2 Delivery O2 Flow Rate FiO2 11/11/16 07:34 36.9 50 18 145/87 (106) 98 Room Air 11/11/16 04:00 36.8 60 16 134/84 (101) 97 Room Air 11/11/16 04:00 Room Air 11/11/16 00:02 Room Air 11/10/16 23:56 36.7 61 16 137/83 (101) 100 Room Air 11/10/16 20:00 Room Air 11/10/16 19:00 37.0 56 18 141/79 (99) 99 Room Air 11/10/16 16:20 36.5 52 20 134/80 (98) 99 Room Air 11/10/16 16:00 Room Air 11/10/16 13:00 36.4 50 16 133/85 (101) 98 Room Air 11/10/16 12:28 36.6 51 16 114/73 (87) 96 Room Air 11/10/16 12:05 36.7 52 16 136/79 (98) 99 Room Air 11/10/16 12:00 95 Room Air 11/10/16 11:59 57 18 149/84 (105) 100 Room Air 11/10/16 11:52 49 20 118/71 (87) 98 Room Air 11/10/16 11:40 48 20 124/69 (87) 97 Room Air 11/10/16 11:37 62 20 118/63 (81) 97 Room Air 11/10/16 11:11 37.1 47 20 128/73 (91) 100 Room Air 11/10/16 11:01 36.9 49 16 132/68 (89) 99 Room Air Lab Results: Results Past 24 Hours Test 11/10/16 11:14 11/10/16 20:13 11/11/16 05:38 Range/Units Urine Test NEG NEG Bedside Urine Test NEG NEG Hemoglobin 13.2 11.9 12.0-16.0 g/dL Hematocrit 43.1 39.4 37-47 %
[2016-11-11] MEDS ORDERED: ONDA8TAB62 SL (10:04)
[2016-11-11] MEDS ORDERED: ULT50X PO (10:04)
[2016-11-11] MEDS ORDERED: PRT40 PO (10:04)
[2016-11-11] MEDS ORDERED: SUCR1TAB PO (10:04)
--- NOTE | 2016-11-11 10:06 | Discharge Summary ---
Discharge Summary Date of Service Nov 11, 2016. Discharge Summary Admission Date: Nov 09, 2016 at 09:24 Discharge Date: Nov 11, 2016 Discharge Disposition: Home Principal Diagnosis: GI bleed Procedures: CT ABD: 1. No evidence of bowel obstruction. No evidence of free air 2. Normal appendix 3. No evidence of acute diverticulitis 4. No acute inflammatory changes EGD: Impression No evidence of upper GI bleeding. Biopsies taken from the small intestine due to her discomfort and stomach. Recommendations Consider Carafate 1-2 times daily Outpatient colonoscopy to be scheduled due to intermittent hematochezia Please call with any questions or concerns during the remainder of her hospital stay Consultations: GI Pending Studies/Follow-Up: Follow up with on 11/15/16 at 2:05pm ([facility] office: [address] [place] [address], [place] [address]) Follow up with your temporary office assistant for colonoscopy as advised Seek immediate medical attention if your symptoms reoccur or worsen Medication Reconciliation New Medications: Ondansetron Odt (Zofran Odt) 8 Mg Soltab 8 MG SL Q6H PRN for Nausea for 5 Days, #20 TAB Pantoprazole (Pantoprazole Sodium) 40 Mg Tab 40 MG PO QAM for 30 Days, #30 TAB 1 Refill Sucralfate (Sucralfate) 1 Gm Tab 1 GM PO QID for 30 Days, #120 TAB 1 Refill Tramadol HCl (Tramadol HCl) 50 Mg Tab 25-50 MG PO Q6H PRN for Pain for 5 Days, #15 TAB Continued Medications: Gabapentin (Neurontin) 800 Mg Tab 800 MG PO TID, TAB Topiramate (Topamax) 50 Mg Tab 50 MG PO BID, TAB Admission Information HPI (per Admitting provider): This is a 46F with PMH of H. Pylori gastric ulcer s/p partial gastrectomy 2007 who presents with GI bleeding. Patient moved here few days ago from [place] and [facility] in [facility]. She reports diarrhea for 1.5 weeks with intermittent bright red blood mixed in the stool. Then since yesterday had 3 episodes of vomiting bright red blood. Yesterday also developed dark tarry stool mixed with bright red blood, noting that today bright red blood filled the toilet. For past 1-2 days has LUQ stabbing pain non-radiating and soreness across lower abdomen. Pain is worse with ambulating. Still feeling pain and nausea despite morphine and Zofran given in ER. States she can't keep anything down including meds. Has been lightheaded and fatigued. Denies fever, chills, syncope, chest pain, SOB, coffee ground emesis, urinary changes. Denies taking NSAIDs or blood thinners. Denies etoh use. No recent travel, sick contact , recent abx use. Her gastrectomy was done in [place]. Last EGD was 2+ years ago ? in [facility]. Last colonoscopy 2+ years ago showed diverticulosis and polyps per patient. In the ED patient's Hg is 12.0. Vitals are stable. Hemoccult was negative for ER provider. Physical Exam (per Admitting): General Appearance: WD/WN, + mild distress (anxious, becomes mildly tearful during examination), + pertinent finding (alert coopeartive 46 y/o female) Head: normocephalic, atraumatic Eyes: normal inspection, PERRL, EOMI ENT: hearing grossly normal, pharynx normal Neck: supple, trachea midline Respiratory/Chest: lungs clear, normal breath sounds, no respiratory distress, no accessory muscle use Cardiovascular: regular rate, rhythm, no murmur Abdomen/GI: normal bowel sounds, soft, + pertinent finding (tender in LUQ) Back: no CVA tenderness Extremities/Musculoskelatal: no calf tenderness, no pedal edema Neurologic/Psych: alert, oriented x 3, + pertinent finding (anxious) Skin: normal color, warm/dry Hospital Course Bleeding Per Rectum/Abdominal pain Also states melena,hematochezia H/O PUD and partial gastrectomy in 2007 CT ABD: unremarkable EGD:mild gastritis. Biopsy from small intestine taken Continue PPI and Carafate per GI plan is outpatient colonoscopy for intermittent hematochezia Hb: mild drop likely hemodilutional. No active bleeding Tolerating diet Appreciate GI input H/O MIGRAINE continue Topamax NEUROPATHY on gabapentin DVT Px SCD's due to GIB Code Status: FULL CODE DISPOSITION Plan to discharge home today Follow up with on 11/15/16 at 2:05pm ([facility] office: [address] [place] [address] , [place] [address]) Follow up with your temporary office assistant for colonoscopy as advised Seek immediate medical attention if your symptoms reoccur or worsen Total time spent on discharge = 34 minutes This includes examination of the patient, discharge planning, medication reconciliation, and communication with other providers. Discharge Instructions Discharge Instructions Date of Service Nov 11, 2016. Admission Reason for Admission: Gi Bleed Discharge Discharge Diagnosis / Problem: GI bleed Discharge Goals Goal(s): Decrease discomfort, Improve function Activity Recommendations Activity Limitations: resume your previous activity Exercise/Sports Limitations: as tolerated . Instructions / Follow-Up Instructions / Follow-Up Follow up with on 11/15/16 at 2:05pm ([facility] office: [address] [place] [address] , [place] [address]) Follow up with your temporary office assistant for colonoscopy as advised Seek immediate medical attention if your symptoms reoccur or worsen Current Hospital Diet Patient's current hospital diet: Regular Diet Discharge Diet Recommended Diet: Regular Diet Procedures Procedures Performed: EGD WITH BIOPSY Pending Studies Studies pending at discharge: yes List of pending studies: Biopsy results Medical Emergencies . Who to Call and When: Medical Emergencies: If at any time you feel your situation is an emergency, please call 911 immediately. . Non-Emergent Contact Non-Emergency issues call your: Primary Care Provider, [employer] Call Non-Emergent contact if: you have a fever, your pain is not controlled, your pain is worsening, your pain is unusual for you, you have any medication questions If your bleeding reoccurs . . "Provider Documentation" section prepared by Gino Parra. . VTE Core Measure Inpt VTE Proph given/why not?: SCD's <Electronically signed by Gino Parra MD> Signed: 11/11/16 1005 Signed: The status of this report is Signed * If report status is Draft, the document has not been finalized by the responsible provider.
[2016-11-11 10:19] VITALS: BP 145/87; PULSE 50; TEMP 36.9; O2SAT 98
[2016-11-11] MEDS ORDERED: SUCRALFATE 1 GM TAB PO SCH (13:00)
== END 2016-11-11 10:30 | disposition home or self-care (01) ==
LOC: C.EDB 07:30 → C.MED 09:24 → ENRESERV 09:48
PROVIDERS: ADMIT Internal Medicine; ATTEND Internal Medicine
DX: K92.2 Gastrointestinal hemorrhage, unspecified (principal); K92.0 Hematemesis; Z87.19 Personal history of other diseases of the digestive system; Z83.3 Family history of diabetes mellitus; Z82.49 Family history of ischemic heart disease and other diseases of the circulatory system; F17.200 Nicotine dependence, unspecified, uncomplicated

== ENCOUNTER 2016-11-16 08:50 | Observation (INO) | payer OTHER ==
[~2016-11-16] VITALS: Ht 170.2 cm; Wt 62.1 kg
[~2016-11-16 08:50] MED LIST: GABA800T PO; ONDA8TAB62 SL; PRT40 PO; SUCR1TAB PO; TOPI50TA24 PO; ULT50X PO
[2016-11-16] MEDS ORDERED: SODIUM CHLORIDE 0.9% 500ML 500 ML IV STA (09:50)
[2016-11-16] MEDS ORDERED: ONDANSETRON INJ 2 MG/ML 2 ML VIAL IV STA (09:50)
[2016-11-16] MEDS ORDERED: MoRPHine SULFATE 4 MG/ML 1 ML CARP\\VIAL IV STA ×2 (09:50→11:04)
[2016-11-16] MEDS ORDERED: PANTOprazole INJ 40 MG in DEXTROSE 5% 100ML IV SCH (10:00)
[2016-11-16] MEDS ORDERED: PANTOprazole INJ 80 MG in DEXTROSE 5% 100ML IV ONE (10:00)
[2016-11-16 10:10] LABS: BASO % 0.1 %; BASO ABS # 0.01 K/uL (0-0.2); EOS % 0.6 %; HEMATOCRIT 40.3 % (37-47); IG% 0.2 %; LYMPH % 17.5 %; LYMPH ABS # 1.67 K/uL (1.2-3.4); MEAN CELL VOLUME 88.8 fL (80-100); MEAN CORPUSCULAR HEMOGLOBIN 28.4 pg (25-34); MEAN PLATELET VOLUME 9.3 fL (7.4-10.4); MONO % 6.9 %; NEUT % 74.7 %; PLATELET COUNT 220 K/uL (130-400); RED BLOOD COUNT 4.54 M/uL (4.2-5.4); WHITE BLOOD COUNT 9.53 K/uL (4.8-10.8)
[2016-11-16 10:32] LABS: ALT/SGPT 49 U/L (12-78); AST/SGOT 20 U/L (15-37); BLOOD UREA NITROGEN 8 mg/dl (7-18); BUN/CREATININE RATIO 13.6 (10-20); CALCIUM 8.9 mg/dl (8.5-10.1); CARBON DIOXIDE 26 mmol/L (21-32); CHLORIDE 115 mmol/L (98-107); CREATININE 0.59 mg/dl (0.60-1.20); GLUCOSE 68 mg/dl (70-99); POTASSIUM 3.6 mmol/L (3.5-5.1); SODIUM 145 mmol/L (136-145)
[2016-11-16 10:35] LABS: ALKALINE PHOSPHATASE 106 U/L (45-117)
[2016-11-16 11:06] LABS: ANISOCYTOSIS PRESENT; COMPLETE YES
[2016-11-16 11:30] VITALS: O2SAT 100
--- NOTE | 2016-11-16 12:22 | Gastrointestinal Consultation ---
Gastrointestinal Consultation Date of Consultation: Nov 16, 2016 Consulting Physician: Phyllis Reason for Consultation: melena, BRBPR History of Present Illness Patient is a 46 year old female with history of neuropathy, migraines, H.Pylori and gastric ulcers s/p antrectomy in 2007 who presented to the ED for evaluation of severe abdominal pain, rectal bleeding. Pt was seen and evaluated. She was recently admitted and discharged for similar symptoms after an EGD with chronic gastritis. No change in her history since she was last evaluated. She has not been using any NSAIDs. Denies ETOH use. She tells me for the past two weeks she has had daily BRBPR - stools are brown and formed with BRB streaking through the stool and in the toilet bowl. She does think she is still having some black stools as well. Stools are all formed. Abdominal pain is generalized, constant and cramping. Not worse with a BM. No nausea or vomiting. No lightheadedness, dizziness, chest pain, SOB. No sick contacts. She has just moved to [place] from [facility]. She is currently staying at [address] [employer] [place] and is working two jobs. She had mentioned hematemesis to ED provider, however, she denies any nausea or vomiting since she had her EGD to me. No NSAIDs. No anticoagulation. No ETOH. Denies hx of liver disease. CLARE per ER with blas blood. Past Medical/Surgical History Medical Problems: (1) Upper GI bleed Status: Acute Past Medical History: neuropathy, PUD, constipation, migraines, hx. h.pylori Past Surgical History: c.section, antrectomy, colonoscopy, EGD Family History Diabetes mellitus FH: cancer Hypertension Social History Smoking Status: Current Every Day Smoker Alcohol Use: none Drug Use: none Allergies Coded Allergies: Ketorolac Tromethamine (Unverified Allergy, Intermediate, SWELLING/HIVES, 11/16/16) Current Medications Home Meds and Scripts Medications Dose Route/Sig Max Daily Dose Days Date Category Zofran Odt (Ondansetron HCl) 8 Mg Soltab 8 Mg SL Q6H PRN 5 11/11/16 Rx Sucralfate 1 Gm Tab 1 Gm PO QID 30 11/11/16 Rx Pantoprazole Sodium (Pantoprazole) 40 Mg Tab 40 Mg PO QAM 30 11/11/16 Rx Tramadol HCl 50 Mg Tab 25-50 Mg PO Q6H PRN 5 11/11/16 Rx Topamax (Topiramate) 50 Mg Tab 50 Mg PO BID 11/09/16 Reported Neurontin (Gabapentin) 800 Mg Tab 800 Mg PO TID 11/09/16 Reported Review of Systems Constitutional: No fever, No chills Respiratory: No cough, No shortness of breath Cardiac: No chest pain, No edema Abdomen: + pain, + diarrhea, + constipation, + GI bleeding, No nausea, No vomiting Physical Exam Date Time Temp Pulse Resp B/P (MAP) Pulse Ox O2 Delivery O2 Flow Rate FiO2 11/16/16 11:30 67 20 152/82 100 Room Air 11/16/16 10:47 11/16/16 10:25 68 16 150/93 99 Room Air 11/16/16 08:55 37.2 93 18 151/102 99 Room Air General Appearance: no apparent distress Eyes: PERRL ENT: hearing grossly normal Neck: supple Respiratory/Chest: lungs clear, normal breath sounds Cardiovascular: regular rate, rhythm, no edema Abdomen: normal bowel sounds, soft, no organomegaly, + tenderness Neurologic/Psych: alert, normal mood/affect, oriented x 3 Skin: normal color, no jaundice, warm/dry, no rash Laboratory Results Last 24 Hours Test 11/16/16 09:38 White Blood Count 9.53 K/uL Red Blood Count 4.54 M/uL Hemoglobin 12.9 g/dL Hematocrit 40.3 % Mean Corpuscular Volume 88.8 fL Mean Corpuscular Hemoglobin 28.4 pg Mean Corpuscular Hemoglobin Concent 32.0 g/dl Platelet Count 220 K/uL Mean Platelet Volume 9.3 fL Neutrophils (%) (Auto) 74.7 % Lymphocytes (%) (Auto) 17.5 % Monocytes (%) (Auto) 6.9 % Eosinophils (%) (Auto) 0.6 % Basophils (%) (Auto) 0.1 % Neutrophils # (Auto) 7.11 K/uL Lymphocytes # (Auto) 1.67 K/uL Monocytes # (Auto) 0.66 K/uL Eosinophils # (Auto) 0.06 K/uL Basophils # (Auto) 0.01 K/uL RDW Standard Deviation 70.9 fL RDW Coefficient of Variation 22.2 % Immature Granulocyte % (Auto) 0.2 % Immature Granulocyte # (Auto) 0.02 K/uL Anisocytosis PRESENT Sodium Level 145 mmol/L Potassium Level 3.6 mmol/L Chloride Level 115 mmol/L Carbon Dioxide Level 26 mmol/L Anion Gap 4.0 mmol/L Blood Urea Nitrogen 8 mg/dl Creatinine 0.59 mg/dl Est Creatinine Clear Calc Drug Dose 114.7 ml/min Estimated GFR () 126.5 Estimated GFR (Non- 109.1 BUN/Creatinine Ratio 13.6 Random Glucose 68 mg/dl Calcium Level 8.9 mg/dl Total Bilirubin 0.1 mg/dl Direct Bilirubin < 0.1 mg/dl Aspartate Amino Transf (AST/SGOT) 20 U/L Alanine Aminotransferase (ALT/SGPT) 49 U/L Alkaline Phosphatase 106 U/L Total Protein 6.6 gm/dl Albumin 3.3 gm/dl Lipase 133 U/L Impression Patient is a 46 year old female with a two week history of BRBPR now with intermittent melena. She has generalized abdominal pain, unchanged with PO intake or BM. She was admitted about two weeks ago with similar symptoms, stool Hemoccult was negative at the time. CLARE in ED with blas blood, no external abnormalities. She was to get an outpatient colonoscopy within a month - however , back in ED with similar concerns. Plan - Clear liquid diet - Prep with golytely - NPO after night - Colonoscopy tomorrow - PPI - Trend H&H - Transfuse as needed - Monitor stools - Repeat abdominal imaging - Stool culture and c.diff if stools are loose or liquid ATTESTATION: I have performed a history and physical examination of this patient and reviewed the electronic record. Specifically, patient wishes to sign out of the hospital and does not want further treatment from us. I have discussed the case with KATHLEEN Winter. The above note reflects my findings, conclusions, and recommendations. Cale Ferguson MD
[2016-11-16 12:34] VITALS: Ht 170.2 cm; Wt 62.1 kg
[2016-11-16] MEDS ORDERED: SODIUM CHLORIDE 0.9% 1000ML 1,000 ML IV SCH (12:44)
[2016-11-16] MEDS ORDERED: ONDANSETRON INJ 2 MG/ML 2 ML VIAL IV PRN (13:00)
[2016-11-16] MEDS ORDERED: ACETAMINOPHEN 325 MG TAB PO PRN (13:00)
--- NOTE | 2016-11-16 13:09 | History and Physical ---
History & Physical Date & Time of Service: Nov 16, 2016 at 12:47 Chief Complaint: Nausea, Bleeding W/Bm, Abd. Pain Primary Care Physician: No Doctor, Assigned History of Present Illness Source: patient, hospital records This is a 46 y/o female with PMH of PUD s/p partial gastrectomy in 2007 who presents to the ED with rectal bleeding. Patient was recently admitted at [facility] from November 09-[address] abdomen was unremarkable. She was seen by Diomedes ANGEL. EGD was done which showed chronic gastritis. Had mild drop in Hg which was considered likely dilutional. She was discharged on Protonix and Carafate with plan for outpatient colonoscopy. Pt reports initially feeling well upon discharge, but two days ago developed pain across her lower abdomen which worsened with bowel movements and ambulating. From that time she noticed bright red blood with her stools, eventually filling the toilet. Stools are described as dark. She reports nausea and vomited x 2. She reports not keeping anything down except sips of liquids. Nausea is now resolved with Zofran. Has been lightheaded. Denies fever, chills, syncope, chest pain, SOB, urinary difficulty. She smokes 1/2 ppd. No etoh. No NSAIDs. Past Medical/Surgical History Medical Problems: (1) Migraines Status: Chronic (2) Neuropathy Status: Chronic Surgical Problems: (1) H/O section Status: Chronic (2) History of gastrectomy Status: Resolved (3) Ulcer Status: Resolved Family History Diabetes mellitus FH: cancer Hypertension Social History Smoking Status: Current Every Day Smoker (1/2 ppd) Alcohol Use: none Housing status: other (recently moved from [place]. staying at [facility]) Multi-Drug Resistant Organisms History of MDRO: No Allergies Coded Allergies: Ketorolac Tromethamine (Unverified Allergy, Intermediate, SWELLING/HIVES, 11/16/16) Home Medications Scheduled Gabapentin (Neurontin), 800 MG PO TID Pantoprazole (Pantoprazole Sodium), 40 MG PO QAM Sucralfate (Sucralfate), 1 GM PO QID Topiramate (Topamax), 50 MG PO BID Scheduled PRN Ondansetron Odt (Zofran Odt), 8 MG SL Q6H PRN for Nausea Tramadol HCl (Tramadol HCl), 25-50 MG PO Q6H PRN for Pain Review of Systems Ten systems reviewed and negative except as noted in HPI. Physical Exam Vital Signs Date Time Temp Pulse Resp B/P (MAP) Pulse Ox O2 Delivery O2 Flow Rate FiO2 11/16/16 11:30 67 20 152/82 100 Room Air 11/16/16 10:47 11/16/16 10:25 68 16 150/93 99 Room Air 11/16/16 08:55 37.2 93 18 151/102 99 Room Air General Appearance: WD/WN, no apparent distress Head: normocephalic, atraumatic Eyes: normal inspection, sclerae normal ENT: normal ENT inspection, hearing grossly normal Neck: supple, trachea midline Respiratory/Chest: lungs clear, normal breath sounds, no respiratory distress, no accessory muscle use Cardiovascular: regular rate, rhythm, no murmur Abdomen/GI: normal bowel sounds, soft, + pertinent finding (tender across lower quadrants. ) Back: + pertinent finding (left flank tenderness. ) Extremities/Musculoskelatal: normal inspection, no pedal edema Neurologic/Psych: alert, normal mood/affect, oriented x 3, + pertinent finding (grossly nonfocal) Skin: normal color, warm/dry Diagnostics Laboratory Results Results Past 24 Hours Test 11/16/16 09:38 Range/Units White Blood Count 9.53 4.8-10.8 K/uL Red Blood Count 4.54 4.2-5.4 M/uL Hemoglobin 12.9 12.0-16.0 g/dL Hematocrit 40.3 37-47 % Mean Corpuscular Volume 88.8 80-100 fL Mean Corpuscular Hemoglobin 28.4 25-34 pg Mean Corpuscular Hemoglobin Concent 32.0 32-36 g/dl Platelet Count 220 130-400 K/uL Mean Platelet Volume 9.3 7.4-10.4 fL Neutrophils (%) (Auto) 74.7 % Lymphocytes (%) (Auto) 17.5 % Monocytes (%) (Auto) 6.9 % Eosinophils (%) (Auto) 0.6 % Basophils (%) (Auto) 0.1 % Neutrophils # (Auto) 7.11 1.4-6.5 K/uL Lymphocytes # (Auto) 1.67 1.2-3.4 K/uL Monocytes # (Auto) 0.66 0.11-0.59 K/uL Eosinophils # (Auto) 0.06 0-0.5 K/uL Basophils # (Auto) 0.01 0-0.2 K/uL RDW Standard Deviation 70.9 36.4-46.3 fL RDW Coefficient of Variation 22.2 11.5-14.5 % Immature Granulocyte % (Auto) 0.2 % Immature Granulocyte # (Auto) 0.02 0.00-0.02 K/uL Anisocytosis PRESENT Sodium Level 145 136-145 mmol/L Potassium Level 3.6 3.5-5.1 mmol/L Chloride Level 115 98-107 mmol/L Carbon Dioxide Level 26 21-32 mmol/L Anion Gap 4.0 3-11 mmol/L Blood Urea Nitrogen 8 7-18 mg/dl Creatinine 0.59 0.60-1.20 mg/dl Est Creatinine Clear Calc Drug Dose 114.7 ml/min Estimated GFR () 126.5 Estimated GFR (Non- 109.1 BUN/Creatinine Ratio 13.6 10-20 Random Glucose 68 70-99 mg/dl Calcium Level 8.9 8.5-10.1 mg/dl Total Bilirubin 0.1 0.2-1 mg/dl Direct Bilirubin < 0.1 0-0.2 mg/dl Aspartate Amino Transf (AST/SGOT) 20 15-37 U/L Alanine Aminotransferase (ALT/SGPT) 49 12-78 U/L Alkaline Phosphatase 106 45-117 U/L Total Protein 6.6 6.4-8.2 gm/dl Albumin 3.3 3.4-5.0 gm/dl Lipase 133 73-393 U/L Impression Assessment and Plan RECTAL BLEEDING H/o PUD s/p partial gastrectomy 2007 Recently admitted for GIB; EGD showed chronic gastritis; CT abdomen was unremarkable Now presents with melena and bright red blood per rectum; possibly lower GI source Rectal exam with bright red blood per ER provider Hg is stable (12.9); hemodynamically stable IV Protonix drip Type and screen Monitor H/H; transfuse PRN Will give IVF's and replete electrolytes PRN Consult GI; patient seen by Carol WANG; appreciate input Check abdominal x-ray Check stool studies (culture and C. diff) if develops diarrhea Plan is for colonoscopy tomorrow Clear liquid diet then NPO after midnight H/O MIGRAINE Hold Topamax for now NEUROPATHY Hold gabapentin for now DVT PROPHYLAXIS SCD's due to GIB FULL CODE DISPOSITION Observation to telemetry Had no local PCP (recently moved from [place]); was supposed to see Dr. Ro for first time after recent admission but records show "no show" Will need to establish with a local PCP for follow up Patient seen in collaboration with Dr. Gillespie. Please see his addendum. ATTENDING PHYSICIAN ADDENDUM I have seen and examined this patient with Edwige LEE. I agree with above findings and plans with additional comments as listed: Physical Exam General: Patient is not in acute distress, speaking comfortably on room air. Mucous membranes are moist. No oral exudates. Extraoccular movements intact. Lungs are clear. Heart sounds are regular and and heart rate within normal limits. There is no costovertebral angle tenderness however there is pain on palpation of left flank and left lower quadrant. Patient also has midline abdominal scar from prior abdominal procedure and no breaks in the skin. There is no lower extremity edema. Rectal exam deferred as had been performed by Emergency room provider who reported bright blood per rectum. Patient is a 46 year Female with prior recent discharge from November 11, 2016 for concerns of GI bleed s/p EGD with biopsies taken from the small intestine and gastrum. Pathology positive for gastritis however no jejunitis and no evidence for H.Pylori or Malignancy. Patient has been evaluated by GI service in the Emergency room and there are plans to perform colonoscopy likely on 11/17/2016. [address] on clear liquid diet as tolerated today and NPO after midnight except for medications. Patient to get bowel prep prior to colonoscopy. Currently patient is hemodynamically stable however due to findings of tenderness of the abdomen, will also send for abdomen X ray. Avoid NSAIDs. Will continue supportive care including IV hydration, and antiemetics. Will trend CBC and obtain type and screen. Resuscitation Status FULL RESUSCITATION VTE Prophylaxis VTE Risk Assessment Done? Y/N: Yes Risk Level: Low Given or contraindicated: SCD's
[2016-11-16] MEDS ORDERED: LAVAGE SOLUTION 4000ML PO SCH ×2 (13:15→17:00)
[2016-11-16] MEDS ORDERED: IV FLUIDS COMPLETED PRN (13:15)
[2016-11-16 13:50] LABS: URINE APPEARANCE CLEAR (CLEAR); URINE BILIRUBIN NEG (NEG); URINE COLOR YELLOW; URINE EPITHELIAL CELL AUTO 0-5 /lpf (0-5); URINE NITRITE NEG (NEG); URINE SPECIFIC GRAVITY 1.013 (1.000-1.030); UROBILINOGEN NEG (NEG); ZZUR CULT IF INDIC CLEAN CATCH NO
[2016-11-16 13:56] LABS: MANUAL MICROSCOPIC REQUIRED? NO; REVIEW REQ? NO
--- NOTE | 2016-11-16 13:56 | EMERGENCY ROOM VISIT NOTE ---
History Report prepared by Brina: Brayan Cota Under the Supervision of: Dr. Aakash Malagon D.O. First contact with patient: 09:01 Chief Complaint: GI ASSESSMENT Stated Complaint: NAUSEA, BLEEDING W/BM, ABD. PAIN Nursing Triage Summary: Pt states d/c on Fri. Had an EGD for hematemesis and blood in stool. Pt reports increased blood in stool, nausea, emesis small amount, lower abd and left sided abd pain. Pt states, "When they did the EGD they said I was really inflammed in my stomach. I only have 1/3 of my stomach. I lost part of it because of a bleeding ulcer." Sx worse since Mon. History of Present Illness The patient is a 46 year old female who presents to the Emergency Room with complaints of constant blood in her stools for the past week. The patient states that she was admitted in the hospital recently, and got out four days ago. The patient states that she got an EGD, and it showed that she had a gastritis, and she is on Protonix. She states that her stools are both black and tarry and also bright red, and she has been vomiting blood. The patient states that she still has her appendix and gall bladder, though she has only 1/ 3 of her stomach due to a bleeding ulcer. The patient states that she does not take any Motrin, ibuprofen, or steroids. She states that she has had two bowel movements this morning, and there is about a tablespoon of blood in them. Pt denies headache, change in vision, fevers, chest pain, shortness of breath, nausea, diarrhea, and pain with urination Source of History: patient Onset: past week Position: other (global) Quality: other (blood in stools) Timing: constant Associated Symptoms: + vomiting, + melena Review of Systems See HPI for pertinent positives & negatives. A total of 10 systems reviewed and were otherwise negative. Past Medical & Surgical Medical Problems: (1) Migraines (2) Neuropathy Surgical Problems: (1) H/O section (2) History of gastrectomy (3) Ulcer Family History Diabetes mellitus FH: cancer Hypertension Social History Smoking Status: Current Every Day Smoker Alcohol Use: none Drug Use: none Current/Historical Medications Scheduled Gabapentin (Neurontin), 800 MG PO TID Pantoprazole (Pantoprazole Sodium), 40 MG PO QAM Sucralfate (Sucralfate), 1 GM PO QID Topiramate (Topamax), 50 MG PO BID Scheduled PRN Ondansetron Odt (Zofran Odt), 8 MG SL Q6H PRN for Nausea Tramadol HCl (Tramadol HCl), 25-50 MG PO Q6H PRN for Pain Allergies Coded Allergies: Ketorolac Tromethamine (Unverified Allergy, Intermediate, SWELLING/HIVES, 11/16/16) Physical Exam Vital Signs Date Time Temp Pulse Resp B/P (MAP) Pulse Ox O2 Delivery O2 Flow Rate FiO2 11/16/16 12:34 Room Air 11/16/16 11:30 67 20 152/82 100 Room Air 11/16/16 10:47 11/16/16 10:25 68 16 150/93 99 Room Air 11/16/16 08:55 37.2 93 18 151/102 99 Room Air Physical Exam GENERAL: Sitting up in bed, disheveled in minimal distress. EYE EXAM: normal conjunctiva OROPHARYNX: no exudate, no erythema, lips, buccal mucosa, and tongue normal and mucous membranes are moist NECK: supple, no nuchal rigidity, no adenopathy, non-tender LUNGS: Clear to auscultation. Normal chest wall mechanics HEART: no murmurs, S1 normal and S2 normal ABDOMEN: Minimal diffuse tenderness worse in the epigastric area, soft, normo- active bowel sounds, no masses, no rebound or guarding. BACK: Back is symmetrical on inspection and there is no deformity, no midline tenderness, no CVA tenderness. RECTAL: Heme positive with gross blood. SKIN: no rashes and no bruising UPPER EXTREMITIES: upper extremities are grossly normal. LOWER EXTREMITIES: No pitting edema. NEURO EXAM: Normal sensorium, cranial nerves II-XII grossly intact, normal speech, no gross weakness of arms, no gross weakness of legs. No drift. Gross sensation intact. Medical Decision & Procedures Laboratory Results 11/16/16 09:38 Test 11/16/16 09:38 11/16/16 12:15 11/16/16 13:01 RDW Standard Deviation 70.9 fL (36.4-46.3) RDW Coefficient of Variation 22.2 % (11.5-14.5) White Blood Count 9.53 K/uL (4.8-10.8) Red Blood Count 4.54 M/uL (4.2-5.4) Hemoglobin 12.9 g/dL (12.0-16.0) Hematocrit 40.3 % (37-47) Mean Corpuscular Volume 88.8 fL (80-100) Mean Corpuscular Hemoglobin 28.4 pg (25-34) Mean Corpuscular Hemoglobin Concent 32.0 g/dl (32-36) Platelet Count 220 K/uL (130-400) Mean Platelet Volume 9.3 fL (7.4-10.4) Neutrophils (%) (Auto) 74.7 % Lymphocytes (%) (Auto) 17.5 % Monocytes (%) (Auto) 6.9 % Eosinophils (%) (Auto) 0.6 % Basophils (%) (Auto) 0.1 % Neutrophils # (Auto) 7.11 K/uL (1.4-6.5) Lymphocytes # (Auto) 1.67 K/uL (1.2-3.4) Monocytes # (Auto) 0.66 K/uL (0.11-0.59) Eosinophils # (Auto) 0.06 K/uL (0-0.5) Basophils # (Auto) 0.01 K/uL (0-0.2) Immature Granulocyte % (Auto) 0.2 % Immature Granulocyte # (Auto) 0.02 K/uL (0.00-0.02) Anisocytosis PRESENT Anion Gap 4.0 mmol/L (3-11) Est Creatinine Clear Calc Drug Dose 114.7 ml/min Estimated GFR () 126.5 Estimated GFR (Non- 109.1 BUN/Creatinine Ratio 13.6 (10-20) Calcium Level 8.9 mg/dl (8.5-10.1) Total Bilirubin 0.1 mg/dl (0.2-1) Direct Bilirubin < 0.1 mg/dl (0-0.2) Aspartate Amino Transf (AST/SGOT) 20 U/L (15-37) Alanine Aminotransferase (ALT/SGPT) 49 U/L (12-78) Alkaline Phosphatase 106 U/L (45-117) Total Protein 6.6 gm/dl (6.4-8.2) Albumin 3.3 gm/dl (3.4-5.0) Lipase 133 U/L (73-393) Urine Test NEG (NEG) Laboratory results per my review. Medications Administered Medications (Trade) Dose Ordered Sig/Saurabh Route Start Time Stop Time Status Last Admin Dose Admin Morphine Sulfate (MoRPHine SULFATE INJ) 4 mg NOW STAT IV 11/16/16 09:50 11/16/16 09:52 DC 11/16/16 10:18 4 MG Ondansetron HCl (Zofran Inj) 4 mg NOW STAT IV 11/16/16 09:50 11/16/16 09:52 DC 11/16/16 10:18 4 MG Sodium Chloride 500 ml @ 999 mls/hr Q31M STAT IV 11/16/16 09:50 11/16/16 10:20 DC 11/16/16 09:50 999 MLS/HR Pantoprazole Sodium 80 mg/ Dextrose 120 ml @ 480 mls/hr TODAY@1000 ONCE IV 11/16/16 10:00 11/16/16 10:14 DC 11/16/16 10:18 480 MLS/HR Pantoprazole Sodium 40 mg/ Dextrose 100 ml @ 20 mls/hr Q5H IV 11/16/16 10:00 11/16/16 14:59 11/16/16 10:42 20 MLS/HR Morphine Sulfate (MoRPHine SULFATE INJ) 4 mg NOW STAT IV 11/16/16 11:04 11/16/16 11:05 DC 11/16/16 11:33 4 MG ED Course ED COURSE: Vital signs were reviewed and showed hypertension The patients medical record was reviewed The above diagnostic studies were performed and reviewed. ED treatments and interventions as stated above. 0901: The patient was evaluated in room A2. A complete history and physical examination was performed. 0950: Sodium Chloride 500 ml @ 999 mls/hr IV, Zofran Inj 4mg IV, Morphine Sulfate 4mg IV 1000: Pantoprazole Sodium 40 mg/ Dextrose 100ml @ 20mls/hr IV, Pantoprazole Sodium 80mg/ Dextrose 120ml @ 480mls/hr IV 1102: I discussed the patient's case with Carol WANG, and she will come evaluate the patient 1104: Morphine Sulfate 4mg IV 1143: I discussed the patient's case with Carol WANG, and she recommends admission for a colonoscopy tomorrow. 1147. I reviewed the patient's case with Diomedes Espinoza PA-C. She will evaluate the patient for further management. 1155: Upon reevaluation, the patient is resting comfortably.I discussed my findings with the patient and she understands and agrees with the treatment plan. Based on the patients age, coexisting illnesses, exam and lab findings the decision to treat as an inpatient was made. The patient remained stable while under my care. The patient will be evaluated for further management. Medical Decision Differential diagnoses includes but is not limited to gastritis, peptic ulcer disease, GERD, gallbladder disease, pancreatitis, small bowel obstruction, acute coronary syndrome, pericarditis, ischemic bowel, irritable bowel disease, irritable bowel syndrome, appendicitis, diverticulitis, malignancy, hernia, urinary tract infection, torsion, /ectopic , perforation, trauma, infectious. Patient is a 46-year-old female who presents the ER for epigastric abdominal pain associated with bright red blood per rectum which has been going on since this past Monday. She also admits to dark stools. She was scoped in the hospital and found to have a gastritis. No colonoscopy. She was DC'd Monday. Bleeding has continued. Exam shows heme-positive stools. Discussed with GI. They evaluated at bedside. Recommended admission for colonoscopy. Patient was admitted to internal medicine on a Protonix drip and bolus. Medication Reconcilliation Current Medication List: was personally reviewed by me Blood Pressure Screening Patient's blood pressure: Elevated blood pressure Blood pressure disposition: Elevated BP felt to be situational Consults Time Called: 1100 Consulting Physician: Sigrid Medina CRNP Returned Call: 1102, 1143 I discussed the patient's case with Carol WANG, and she will come evaluate the patient. I discussed the patient's case with Carol WANG, and she recommends admission for a colonoscopy tomorrow. Additional Consults: Time Called: 1144 Consulted Physician: Diomedes Espinoza PA-C Returned Call: 1145 Additional Comments: I reviewed the patient's case with Diomedes Espinoza PA-C. She will evaluate the patient for further management. Impression Primary Impression: GI bleed Additional Impressions: Gastritis Diffuse abdominal pain Scribe Attestation The scribe's documentation has been prepared under my direction and personally reviewed by me in its entirety. I confirm that the note above accurately reflects all work, treatment, procedures, and medical decision making performed by me. Departure Information Dispostion Being Evaluated By Hospitalist Referrals No Doctor, Assigned (PCP) Patient Instructions My [facility] Problem Qualifiers Primary Impression: GI bleed GI bleed type/associated pathology: unspecified gastrointestinal hemorrhage type Qualified Codes: K92.2 - Gastrointestinal hemorrhage, unspecified Additional Impressions: Gastritis Gastritis type: unspecified gastritis Chronicity: unspecified Gastritis bleeding: with bleeding Qualified Codes: K29.71 - Gastritis, unspecified, with bleeding
[2016-11-16 14:15] VITALS: BP 151/89; PULSE 53; TEMP 36.9; O2SAT 100
[2016-11-16] MEDS ORDERED: POTASSIUM CHLORIDE 10 MEQ TABCR PO ONE (14:30)
[2016-11-16] MEDS ORDERED: POTASSIUM CHLR 10 MEQ / WTR 10 MEQ in PREMIXED WATER 100 ML IV ONE (14:45)
[2016-11-16 15:22] LABS: MAGNESIUM 1.9 mg/dl (1.8-2.4); PROTHROMBIN TIME (PATIENT) 11.1 SECONDS (9.0-12.0)
--- NOTE | 2016-11-16 16:24 | Progress Note ---
Progress Note Date of Service Nov 16, 2016. Progress Note This is a 46 year F with recurrent GI bleed s/p inpatient EGD on 11/11/2016 who was readmitted to [facility] today to medicine service for colonoscopy. Patient was transferred from the emergency department to the medical wards. The patient's nurse called provider in regards to patient's wishes to leave against medical advice. Medical provider went to bedside to assess the patient. Patient was seen sitting upright in bed, breathing on room air, speaking in full sentences without obvious discomfort. Patient reports that she was not happy that she had not been given narcotic medications for abdominal pain since arriving on the medical wards from the emergency room. She had declined acetaminophen which had been ordered for her on while on the medical morales because she did not believe that this medication would help her. I have informed her that narcotic medications can cause complications in abdominal pathologies and that X ray technicians were ready to receive her in the imaging room so that we can further explore the causes of the abdominal pain and to find out whether there would be contraindications to narcotic use from the imaging findings. Patient insisted that she wanted to leave the hospital. Patient was notified about potential health risks of leaving without completion of workup.The gastroenterology medical team were also at bedside and the conclusion of that discussion was that the patient has declined colonoscopy. Patient left the hospital against medical advice. She has been notified by phone ([phone]) by FREDDIE Gibbons about following as outpatient with Dr. Ro's outpatient appointment number ([phone]).
--- NOTE | 2016-11-16 16:33 | Discharge Summary ---
Discharge Summary Date of Service Nov 16, 2016. Discharge Summary Admission Date: Nov 16, 2016 at 12:49 Discharge Date: Nov 16, 2016 Principal Diagnosis: Gastrointestinal bleed Secondary Diagnoses/Problems: Abdominal pain Admission Information HPI (per Admitting provider): This is a 46 y/o female with PMH of PUD s/p partial gastrectomy in 2007 who presents to the ED with rectal bleeding. Patient was recently admitted at [facility] from November 09-[address] abdomen was unremarkable. She was seen by Diomedes ANGEL. EGD was done which showed chronic gastritis. Had mild drop in Hg which was considered likely dilutional. She was discharged on Protonix and Carafate with plan for outpatient colonoscopy. Pt reports initially feeling well upon discharge, but two days ago developed pain across her lower abdomen which worsened with bowel movements and ambulating. From that time she noticed bright red blood with her stools, eventually filling the toilet. Stools are described as dark. She reports nausea and vomited x 2. She reports not keeping anything down except sips of liquids. Nausea is now resolved with Zofran. Has been lightheaded. Denies fever, chills, syncope, chest pain, SOB, urinary difficulty. She smokes 1/2 ppd. No etoh. No NSAIDs. Physical Exam (per Admitting): General Appearance: WD/WN, no apparent distress Head: normocephalic, atraumatic Eyes: normal inspection, sclerae normal ENT: normal ENT inspection, hearing grossly normal Neck: supple, trachea midline Respiratory/Chest: lungs clear, normal breath sounds, no respiratory distress, no accessory muscle use Cardiovascular: regular rate, rhythm, no murmur Abdomen/GI: normal bowel sounds, soft, + pertinent finding (tender across lower quadrants. ) Back: + pertinent finding (left flank tenderness. ) Extremities/Musculoskelatal: normal inspection, no pedal edema Neurologic/Psych: alert, normal mood/affect, oriented x 3, + pertinent finding (grossly nonfocal) Skin: normal color, warm/dry Hospital Course This is a 46 year F with recurrent GI bleed s/p inpatient EGD on 11/11/2016 who was readmitted to [facility] today to medicine service for colonoscopy. Patient was transferred from the emergency department to the medical wards. The patient's nurse called provider in regards to patient's wishes to leave against medical advice. Medical provider went to bedside to assess the patient. Patient was seen sitting upright in bed, breathing on room air, speaking in full sentences without obvious discomfort. Patient reports that she was not happy that she had not been given narcotic medications for abdominal pain since arriving on the medical wards from the emergency room. She had declined acetaminophen which had been ordered for her on while on the medical morales because she did not believe that this medication would help her. I have informed her that narcotic medications can cause complications in abdominal pathologies and that X ray technicians were ready to receive her in the imaging room so that we can further explore the causes of the abdominal pain and to find out whether there would be contraindications to narcotic use from the imaging findings. Patient insisted that she wanted to leave the hospital. Patient was notified about potential health risks of leaving without completion of workup.The gastroenterology medical team were also at bedside and the conclusion of that discussion was that the patient has declined colonoscopy. Patient left the hospital against medical advice. She has been notified by phone ([phone]) by FREDDIE Gibbons about following as outpatient with Dr. Ro's outpatient appointment number ([phone]). Total time spent on discharge = 30 minutes This includes examination of the patient, discharge planning, medication reconciliation, and communication with other providers. Discharge Instructions Patient left the hospital against medical advice. She has been notified by phone ([phone]) by FREDDIE Gibbons about following as outpatient with Dr. Ro's outpatient appointment number ([phone]).
--- NOTE | 2016-11-16 17:10 | Discharge Instructions ---
Discharge Instructions Date of Service Nov 16, 2016. Admission Reason for Admission: Abdominal Pain, Gi Bleed Discharge Discharge Diagnosis / Problem: GI bleed, Abdominal Pain Discharge Goals Goal(s): Decrease discomfort Activity Recommendations Activity Limitations: as noted below . Instructions / Follow-Up Instructions / Follow-Up Patient left the hospital against medical advice. She has been notified by phone ([phone]) by PA carlitos Gibbons about following as outpatient with Dr. Ro's outpatient appointment number ([phone]). Current Hospital Diet Patient's current hospital diet: Clear Liquid Diet Discharge Diet Recommended Diet: Regular Diet, N/A Pending Studies Studies pending at discharge: yes List of pending studies: abdominal x ray Laboratory Results 11/16/16 09:38 Test 11/16/16 09:38 11/16/16 12:15 11/16/16 13:01 RDW Standard Deviation 70.9 fL (36.4-46.3) RDW Coefficient of Variation 22.2 % (11.5-14.5) White Blood Count 9.53 K/uL (4.8-10.8) Red Blood Count 4.54 M/uL (4.2-5.4) Hemoglobin 12.9 g/dL (12.0-16.0) Hematocrit 40.3 % (37-47) Mean Corpuscular Volume 88.8 fL (80-100) Mean Corpuscular Hemoglobin 28.4 pg (25-34) Mean Corpuscular Hemoglobin Concent 32.0 g/dl (32-36) Platelet Count 220 K/uL (130-400) Mean Platelet Volume 9.3 fL (7.4-10.4) Neutrophils (%) (Auto) 74.7 % Lymphocytes (%) (Auto) 17.5 % Monocytes (%) (Auto) 6.9 % Eosinophils (%) (Auto) 0.6 % Basophils (%) (Auto) 0.1 % Neutrophils # (Auto) 7.11 K/uL (1.4-6.5) Lymphocytes # (Auto) 1.67 K/uL (1.2-3.4) Monocytes # (Auto) 0.66 K/uL (0.11-0.59) Eosinophils # (Auto) 0.06 K/uL (0-0.5) Basophils # (Auto) 0.01 K/uL (0-0.2) Immature Granulocyte % (Auto) 0.2 % Immature Granulocyte # (Auto) 0.02 K/uL (0.00-0.02) Anisocytosis PRESENT Prothrombin Time 11.1 SECONDS (9.0-12.0) Prothromb Time International Ratio 1.0 (0.9-1.1) Anion Gap 4.0 mmol/L (3-11) Est Creatinine Clear Calc Drug Dose 114.7 ml/min Estimated GFR () 126.5 Estimated GFR (Non- 109.1 BUN/Creatinine Ratio 13.6 (10-20) Calcium Level 8.9 mg/dl (8.5-10.1) Magnesium Level 1.9 mg/dl (1.8-2.4) Total Bilirubin 0.1 mg/dl (0.2-1) Direct Bilirubin < 0.1 mg/dl (0-0.2) Aspartate Amino Transf (AST/SGOT) 20 U/L (15-37) Alanine Aminotransferase (ALT/SGPT) 49 U/L (12-78) Alkaline Phosphatase 106 U/L (45-117) Total Protein 6.6 gm/dl (6.4-8.2) Albumin 3.3 gm/dl (3.4-5.0) Amylase Level 40 U/L (25-115) Lipase 133 U/L (73-393) Urine Color YELLOW Urine Appearance CLEAR (CLEAR) Urine pH 7.0 (4.5-7.5) Urine Specific [place] 1.013 (1.000-1.030) Urine Protein NEG (NEG) Urine Glucose (UA) NEG (NEG) Urine Ketones TRACE (NEG) Urine Occult Blood NEG (NEG) Urine Nitrite NEG (NEG) Urine Bilirubin NEG (NEG) Urine Urobilinogen NEG (NEG) Urine Leukocyte Esterase NEG (NEG) Urine WBC (Auto) 1-5 /hpf (0-5) Urine RBC (Auto) 0-4 /hpf (0-4) Urine Hyaline Casts (Auto) 0 /lpf (0-5) Urine Epithelial Cells (Auto) 0-5 /lpf (0-5) Urine Bacteria (Auto) NEG (NEG) Urine Test NEG (NEG) Medical Emergencies . Who to Call and When: Medical Emergencies: If at any time you feel your situation is an emergency, please call 911 immediately. . Non-Emergent Contact Non-Emergency issues call your: Specialist Contact Number: see above . . "Provider Documentation" section prepared by Aubrey Gillespie. . VTE Core Measure Inpt VTE Proph given/why not?: SCD's
[2016-11-17] MEDS ORDERED: LAVAGE SOLUTION 4000ML PO ONE (07:00)
== END 2016-11-16 15:45 | disposition left against medical advice (07) ==
LOC: C.EDB 08:51 → C.2T 12:49 → ENRESERV 13:06
PROVIDERS: ADMIT Hospitalist; ATTEND Internal Medicine
DX: K92.2 Gastrointestinal hemorrhage, unspecified (principal); G62.9 Polyneuropathy, unspecified; F17.200 Nicotine dependence, unspecified, uncomplicated; Z87.11 Personal history of peptic ulcer disease; Z79.899 Other long term (current) drug therapy

== ENCOUNTER 2016-11-17 16:27 | Emergency (ER) | payer OTHER ==
[2016-11-17 16:39] VITALS: Ht 170.2 cm
--- NOTE | 2016-11-17 17:22 | EMERGENCY ROOM VISIT NOTE ---
History Report prepared by Brina: Rand Samuels Under the Supervision of: Dr. Bry Paez M.D. First contact with patient: 16:56 Chief Complaint: MENTAL HEALTH EVALUATION Stated Complaint: MENTAL HEALTH, History of Present Illness The patient is a 46 year old female who presents to the Emergency Room with a possible suicide attempt. She was brought to the ED via BLS and is accompanied by a [employer] officer. She has a history of alcoholism and states she had been sober for 3 months until her Mother 1.5 months ago. The patient was picked up at the [facility] this afternoon after being found intoxicated. She admitted to nursing staff to taking her Neurontin and Topamax with a bottle of vodka this morning. On exam, the patient states "I just want to go back to the [facility]". 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 A total of 10 systems reviewed and were otherwise negative. Past Medical & Surgical Medical Problems: (1) Migraines (2) Neuropathy Surgical Problems: (1) H/O section (2) History of gastrectomy (3) Ulcer Family History Diabetes mellitus FH: cancer Hypertension Social History Smoking Status: Current Every Day Smoker Alcohol Use: none Drug Use: none Current/Historical Medications Scheduled Gabapentin (Neurontin), 800 MG PO TID Pantoprazole (Pantoprazole Sodium), 40 MG PO QAM Sucralfate (Sucralfate), 1 GM PO QID Topiramate (Topamax), 50 MG PO BID Scheduled PRN Tramadol HCl (Tramadol HCl), 25-50 MG PO Q6H PRN for Pain Allergies Coded Allergies: Ketorolac Tromethamine (Unverified Allergy, Intermediate, SWELLING/HIVES, 11/17/16) Physical Exam Vital Signs Date Time Temp Pulse Resp B/P (MAP) Pulse Ox O2 Delivery O2 Flow Rate FiO2 11/18/16 12:04 37.3 74 16 142/88 98 11/18/16 11:09 74 142/88 98 11/18/16 07:14 65 16 141/74 98 Room Air 11/18/16 02:36 98 18 160/73 97 Room Air 11/18/16 01:10 75 16 96 Room Air 11/17/16 22:28 69 18 122/74 97 Room Air 11/17/16 19:54 79 16 107/51 95 Room Air 11/17/16 19:00 16 11/17/16 16:39 37.3 83 18 116/75 96 Room Air Physical Exam GENERAL: Patient is a healthy-appearing well-nourished 46 year old female HEAD: Normocephalic atraumatic EYES: Ocular movements intact pupils equal and react to light OROPHARYNX mucous membranes are moist no exudates present no erythema or edema present NECK: Supple no nuchal rigidity CHEST: Good equal expansion LUNGS: Clear and equal to auscultation CARDIAC: Normal S1 and S2 ABDOMEN: Soft nontender no guarding BACK: No CVA tenderness EXTREMITIES: No pain upon palpation normal muscle strength in all groups no clubbing cyanosis or edema NEURO: Patient is following commands is answering questions appropriately. Alert and oriented x3 Cranial Nerves 2-12 grossly intact Medical Decision & Procedures Laboratory Results 11/17/16 17:04 Red Blood Count 4.75, Mean Corpuscular Volume 88.0, Mean Corpuscular Hemoglobin 26.9, Mean Corpuscular Hemoglobin Concent 30.6, Mean Platelet Volume 8.7, Neutrophils (%) (Auto) 58.9, Lymphocytes (%) (Auto) 36.1, Monocytes (%) (Auto) 3.8, Eosinophils (%) (Auto) 0.7, Basophils (%) (Auto) 0.4, Neutrophils # (Auto) 4.23, Lymphocytes # (Auto) 2.59, Monocytes # (Auto) 0.27, Eosinophils # (Auto) 0.05, Basophils # (Auto) 0.03 11/17/16 17:04 Test 11/17/16 17:04 11/17/16 17:05 White Blood Count 7.18 K/uL (4.8-10.8) Red Blood Count 4.75 M/uL (4.2-5.4) Hemoglobin 12.8 g/dL (12.0-16.0) Hematocrit 41.8 % (37-47) Mean Corpuscular Volume 88.0 fL (80-100) Mean Corpuscular Hemoglobin 26.9 pg (25-34) Mean Corpuscular Hemoglobin Concent 30.6 g/dl (32-36) Platelet Count 279 K/uL (130-400) Mean Platelet Volume 8.7 fL (7.4-10.4) Neutrophils (%) (Auto) 58.9 % Lymphocytes (%) (Auto) 36.1 % Monocytes (%) (Auto) 3.8 % Eosinophils (%) (Auto) 0.7 % Basophils (%) (Auto) 0.4 % Neutrophils # (Auto) 4.23 K/uL (1.4-6.5) Lymphocytes # (Auto) 2.59 K/uL (1.2-3.4) Monocytes # (Auto) 0.27 K/uL (0.11-0.59) Eosinophils # (Auto) 0.05 K/uL (0-0.5) Basophils # (Auto) 0.03 K/uL (0-0.2) RDW Standard Deviation 70.9 fL (36.4-46.3) RDW Coefficient of Variation 22.3 % (11.5-14.5) Immature Granulocyte % (Auto) 0.1 % Immature Granulocyte # (Auto) 0.01 K/uL (0.00-0.02) Anisocytosis PRESENT Anion Gap 9.0 mmol/L (3-11) Estimated GFR () 123.2 Estimated GFR (Non- 106.3 BUN/Creatinine Ratio 11.6 (10-20) Calcium Level 8.2 mg/dl (8.5-10.1) Total Bilirubin 0.2 mg/dl (0.2-1) Aspartate Amino Transf (AST/SGOT) U/L (15-37) Alanine Aminotransferase (ALT/SGPT) 39 U/L (12-78) Alkaline Phosphatase 90 U/L (45-117) Total Protein 6.8 gm/dl (6.4-8.2) Albumin 3.3 gm/dl (3.4-5.0) Globulin 3.5 gm/dl (2.5-4.0) Albumin/Globulin Ratio 0.9 (0.9-2) Thyroid Stimulating Hormone (TSH) 0.265 uIu/ml (0.300-4.500) Salicylates Level 3.6 mg/dl (2.8-20) Acetaminophen Level 3 ug/ml (10-30) Ethyl Alcohol mg/dL 309.0 mg/dl (0-3) Urine Color YELLOW Urine Appearance CLEAR (CLEAR) Urine pH 5.0 (4.5-7.5) Urine Specific [place] 1.018 (1.000-1.030) Urine Protein NEG (NEG) Urine Glucose (UA) NEG (NEG) Urine Ketones NEG (NEG) Urine Occult Blood NEG (NEG) Urine Nitrite NEG (NEG) Urine Bilirubin NEG (NEG) Urine Urobilinogen NEG (NEG) Urine Leukocyte Esterase NEG (NEG) Urine Opiates Screen POS (NEG) Urine Methadone, Qualitative NEG (NEG) Urine Barbiturates NEG (NEG) Urine Phencyclidine (PCP) Level NEG (NEG) Ur Amphetamine/Methamphetamine NEG (NEG) MDMA (Ecstasy) Screen NEG (NEG) Urine Benzodiazepines Screen NEG (NEG) Urine Cocaine Metabolite NEG (NEG) Urine Marijuana (THC) NEG (NEG) Labs reviewed by ED physician. Medications Administered Medications (Trade) Dose Ordered Sig/Saurabh Route Start Time Stop Time Status Last Admin Dose Admin Acetaminophen (Tylenol Tab) 1,000 mg NOW STAT PO 11/17/16 18:12 11/17/16 18:13 DC 11/17/16 18:28 1,000 MG Sucralfate (Carafate Tab) 1 gm Q6 STAT PO 11/17/16 22:04 11/17/16 22:07 DC 11/17/16 23:00 1 GM Pantoprazole Sodium (Protonix Tab) 40 mg QAM PO 11/18/16 09:00 11/18/16 12:34 DC 11/18/16 11:08 40 MG Tramadol HCl (Ultram Tab) 50 mg Q4H PRN PO 11/17/16 22:15 11/18/16 12:34 DC 11/18/16 11:19 50 MG Clonidine HCl (Rfchzpzz-Ygr-1 0.3mg/24hr Patch) 1 patch NOW STAT TD 11/18/16 02:35 11/18/16 02:36 DC 11/18/16 02:37 1 PATCH Lorazepam (Ativan Tab) 1 mg NOW STAT SL 11/18/16 07:13 11/18/16 07:14 DC 11/18/16 07:18 1 MG Ondansetron HCl (Zofran Odt) 4 mg ONE ONCE SL 11/18/16 07:15 11/18/16 07:16 DC 11/18/16 07:18 4 MG ED Course 1702: Past medical records reviewed. The patient was evaluated in room A6. A complete history and physical examination was performed. 170: I discussed the patients case with [facility]. They recommend the patient be monitored for any seizure like activity. 1812: Acetaminophen 1000 mg PO. Medical Decision Differential includes overdose on Tylenol/aspirin/ethanol, ethylene glycol, methanol, prescribed medications, not prescribe medications/street drugs, metabolic process, traumatic process. This is a 46-year-old female who presents emergency department after suicidal gesture. The patient attempted to take her Neurontin as well as alcohol. I did discuss her case with poison control and she was medically cleared by me. The patient will be sober at 4 AM. I did discuss the case with case management who felt that the patient would likely be voluntary. The patient was signed out to Dr. Rizvi at change of shift pending alcohol clearance. Medication Reconcilliation Current Medication List: was personally reviewed by me Blood Pressure Screening Patient's blood pressure: Normal blood pressure Blood pressure disposition: Did not require urgent referral Consults Time Called: 1704 Consulting Physician: [facility] Returned Call: [phone] I discussed the patients case with [facility]. They recommend the patient be monitored for any seizure like activity. Impression Primary Impression: Mood disorder Additional Impression: Alcohol intoxication Scribe Attestation The scribe's documentation has been prepared under my direction and personally reviewed by me in its entirety. I confirm that the note above accurately reflects all work, treatment, procedures, and medical decision making performed by me. Departure Information Dispostion Still a Patient Referrals No Doctor, Assigned (PCP) Patient Instructions My [facility] Problem Qualifiers Additional Impression: Alcohol intoxication Complication of substance-induced condition: uncomplicated Qualified Codes: F10.920 - Alcohol use, unspecified with intoxication, uncomplicated
[2016-11-17 17:25] LABS: BASO % 0.4 %; BASO ABS # 0.03 K/uL (0-0.2); EOS % 0.7 %; HEMATOCRIT 41.8 % (37-47); IG% 0.1 %; LYMPH % 36.1 %; LYMPH ABS # 2.59 K/uL (1.2-3.4); MEAN CORPUSCULAR HEMOGLOBIN 26.9 pg (25-34); MEAN CORPUSCULAR HGB CONC 30.6 g/dl (32-36); MEAN PLATELET VOLUME 8.7 fL (7.4-10.4); MONO % 3.8 %; NEUT % 58.9 %; PLATELET COUNT 279 K/uL (130-400); RED BLOOD COUNT 4.75 M/uL (4.2-5.4); WHITE BLOOD COUNT 7.18 K/uL (4.8-10.8)
[2016-11-17 17:32] LABS: URINE APPEARANCE CLEAR (CLEAR); URINE BILIRUBIN NEG (NEG); URINE COLOR YELLOW; URINE NITRITE NEG (NEG); URINE SPECIFIC GRAVITY 1.018 (1.000-1.030); UROBILINOGEN NEG (NEG); ZZUR CULT IF INDIC CLEAN CATCH NO
[2016-11-17 17:41] LABS: MANUAL MICROSCOPIC REQUIRED? NO; REVIEW REQ? NO
[2016-11-17 17:46] LABS: ANISOCYTOSIS PRESENT; COMPLETE YES
[2016-11-17 17:55] LABS: ALB/GLOB RATIO 0.9 (0.9-2); ALKALINE PHOSPHATASE 90 U/L (45-117); ALT/SGPT 39 U/L (12-78); BLOOD UREA NITROGEN 7 mg/dl (7-18); BUN/CREATININE RATIO 11.6 (10-20); CALCIUM 8.2 mg/dl (8.5-10.1); CARBON DIOXIDE 22 mmol/L (21-32); CHLORIDE 117 mmol/L (98-107); CREATININE 0.64 mg/dl (0.60-1.20); GLUCOSE 85 mg/dl (70-99); SODIUM 148 mmol/L (136-145); THYROID STIMULATING HORMONE 0.265 uIu/ml (0.300-4.500)
[2016-11-17] MEDS ORDERED: CLONIDINE HCL 0.3 MG/24 HR TRANSDERM SYS TD STA (18:06)
[2016-11-17] MEDS ORDERED: ACETAMINOPHEN 500 MG TAB PO STA (18:12)
[2016-11-17 18:14] LABS: BENZODIAZEPINE, URINE NEG (NEG); COCAINE,URINE NEG (NEG); PHENCYCLIDINE, URINE NEG (NEG)
[2016-11-17] MEDS ORDERED: SUCRALFATE 1 GM TAB PO STA (22:04)
[2016-11-17] MEDS ORDERED: NICOTINE POLACRILEX 2 MG GUM MT PRN (22:15)
[2016-11-17] MEDS ORDERED: NICOTINE 21 MG/24 HR TDSY TD SCH (22:15)
[2016-11-17] MEDS: TRAMADOL HCL 50 MG TAB PO PRN (23:01)
[2016-11-18] MEDS ORDERED: NURSING VERBAL MED ORDER ONE (02:30)
[2016-11-18] MEDS ORDERED: CLONIDINE HCL 0.3 MG/24 HR TRANSDERM SYS TD STA (02:35)
--- NOTE | 2016-11-18 02:40 | EMERGENCY ROOM VISIT NOTE ---
ED Visit Note First contact with patient: 22:17 The patient was taken in signout from Dr. Paez at the change of shift. Please see that note for details. The patient was pending alcohol clearance. The patient was observed and reassessed. She was resting comfortably. She was up and about several times for nursing without difficulty. Her case was signed out to Dr. Julissa Barclay at the change of shift. Please see her note for disposition and details.
[2016-11-18] MEDS: TRAMADOL HCL 50 MG TAB PO PRN ×2 (04:46→11:19)
--- NOTE | 2016-11-18 06:33 | EMERGENCY ROOM VISIT NOTE ---
ED Visit Note First contact with patient: 02:36 I received this patient in signout the change of shift from Dr. Crews pending mental health evaluation. The patient has been accepted at the [facility] and secure transportation arrangements have been made. The patient will be transported at 10 AM.
[2016-11-18] MEDS ORDERED: LORAZEPAM 1 MG TAB SL STA (07:13)
[2016-11-18] MEDS ORDERED: ONDANSETRON 4MG OD TAB SL ONE (07:15)
[2016-11-18] MEDS ORDERED: PANTOprazole SOD 40 MG TAB PO SCH (09:00)
[2016-11-18 12:04] VITALS: BP 142/88; PULSE 74; TEMP 37.3; O2SAT 98
[2016-11-22 11:30] LABS: COD UR NEGATIVE NG/ML (CUTOFF=50); HYDROCOD UR NEGATIVE NG/ML (CUTOFF=50); HYDROMOR UR NEGATIVE NG/ML (CUTOFF=50); MORPHINE UR 303 NG/ML (CUTOFF=50); NORHYDROCODONE CONF UR NEGATIVE NG/ML (CUTOFF=50); OXYMORPH UR NEGATIVE NG/ML (CUTOFF=50); SYNTHETIC CANNABINOIDS QL URIN NEGATIVE (Negative)
== END 2016-11-18 12:00 ==
LOC: EDBD 16:27 → C.EDA 16:27
DX: F39 Unspecified mood [affective] disorder (principal); F10.129 Alcohol abuse with intoxication, unspecified; Y90.8 Blood alcohol level of 240 mg/100 ml or more; F17.200 Nicotine dependence, unspecified, uncomplicated; Z98.84 Bariatric surgery status; Z86.19 Personal history of other infectious and parasitic diseases; Z79.899 Other long term (current) drug therapy; Z88.8 Allergy status to other drugs, medicaments and biological substances; Z83.3 Family history of diabetes mellitus; Z80.9 Family history of malignant neoplasm, unspecified; Z82.49 Family history of ischemic heart disease and other diseases of the circulatory system

== ENCOUNTER 2016-11-25 07:49 | Emergency (ER) | payer OTHER ==
[~2016-11-25] VITALS: Ht 170.2 cm; Wt 51.6 kg
[~2016-11-25 07:49] MED LIST changes: -ONDA8TAB62 SL
[2016-11-25 07:51] VITALS: TEMP 36.8; Ht 170.2 cm; Wt 51.6 kg
[2016-11-25] MEDS ORDERED: MIRT30TA2 PO (08:35)
[2016-11-25] MEDS ORDERED: ACETAMINOPHEN 500 MG TAB PO STA (08:52)
[2016-11-25 09:14] LABS: ALT/SGPT 17 U/L (12-78); BLOOD UREA NITROGEN 8 mg/dl (7-18); CALCIUM 8.3 mg/dl (8.5-10.1); CARBON DIOXIDE 28 mmol/L (21-32); CHLORIDE 109 mmol/L (98-107); CREATININE 0.55 mg/dl (0.60-1.20); GLUCOSE 81 mg/dl (70-99); POTASSIUM 3.9 mmol/L (3.5-5.1); SODIUM 143 mmol/L (136-145)
[2016-11-25 09:16] LABS: ACANTHOCYTES 1+; BASO % 0.5 %; BASO ABS # 0.04 K/uL (0-0.2); COMPLETE YES; EOS % 0.7 %; HEMATOCRIT 41.4 % (37-47); IG% 0.2 %; LYMPH % 33.8 %; LYMPH ABS # 2.79 K/uL (1.2-3.4); MEAN CELL VOLUME 87.5 fL (80-100); MEAN CORPUSCULAR HEMOGLOBIN 28.5 pg (25-34); MEAN CORPUSCULAR HGB CONC 32.6 g/dl (32-36); MEAN PLATELET VOLUME 8.9 fL (7.4-10.4); MONO % 5.3 %; NEUT % 59.5 %; PLATELET COUNT 305 K/uL (130-400); RED BLOOD COUNT 4.73 M/uL (4.2-5.4); WHITE BLOOD COUNT 8.26 K/uL (4.8-10.8)
[2016-11-25] MEDS ORDERED: THIAMINE HCL 100 MG TAB PO STA (09:20)
[2016-11-25 09:25] LABS: ALKALINE PHOSPHATASE 63 U/L (45-117); AST/SGOT 15 U/L (15-37); THYROID STIMULATING HORMONE 0.214 uIu/ml (0.300-4.500)
[2016-11-25 11:19] LABS: URINE APPEARANCE CLEAR (CLEAR); URINE BILIRUBIN NEG (NEG); URINE COLOR YELLOW; URINE NITRITE NEG (NEG); UROBILINOGEN NEG (NEG)
[2016-11-25 11:23] LABS: MANUAL MICROSCOPIC REQUIRED? NO; REVIEW REQ? NO
[2016-11-25 11:58] LABS: BENZODIAZEPINE, URINE NEG (NEG); COCAINE,URINE NEG (NEG); PHENCYCLIDINE, URINE NEG (NEG)
[2016-11-25] MEDS ORDERED: OXYCODONE HCL IR 5 MG TAB (IMMEDIATE RELEASE) PO STA (12:47)
[2016-11-25] MEDS ORDERED: ONDANSETRON 4MG OD TAB PO STA (12:47)
[2016-11-25] MEDS ORDERED: FAMOTIDINE 20 MG TAB PO STA (12:47)
[2016-11-25] MEDS ORDERED: GI COCKTAIL PO STA (12:47)
[2016-11-25] MEDS ORDERED: ALUMINUM/MAGNESIUM SUSP 30 ML UDC ONE (12:54)
[2016-11-25] MEDS ORDERED: LIDOCAINE HCL 2% VISC SOLN 20 ML UDC ONE (12:54)
[2016-11-25] MEDS ORDERED: SUCRALFATE 1 GM TAB PO ONE (13:00)
[2016-11-25] MEDS ORDERED: CLONIDINE HCL 0.3 MG/24 HR TRANSDERM SYS TD STA (13:35)
[2016-11-25] MEDS ORDERED: LORAZEPAM 1 MG TAB SL STA (13:35)
--- NOTE | 2016-11-25 15:01 | EMERGENCY ROOM VISIT NOTE ---
History Report prepared by Brina: Naida Davis Under the Supervision of: Dr. Bry Paez M.D. First contact with patient: 07:50 Chief Complaint: MENTAL HEALTH EVALUATION Stated Complaint: SUICIDAL THOUGHTS, ABD. PAINS History of Present Illness The patient is a 46 year old female who presents to the Emergency Room with complaints of persistent suicidal thoughts starting 24 hours ago. She has a history of anxiety and depression. She has had suicide attempts in the past. She currently has a plan to overdose on her medications and alcohol. She also reports headache and abdominal pain. She is nauseous and feels like she is about to pass out at times. She denies any vomiting or diarrhea. She states that she has not eaten in several days because she did not feel like eating. She states that she feels depressed and cannot function daily. She is unable to sleep and more anxious. She had a panic attack yesterday. She was discharged from the [facility] a couple days ago. She is willing to receive inpatient care. Source of History: patient Onset: 24 hours ago Position: other (mental health) Quality: other (suicidal thoughts) Timing: other (persistent) Associated Symptoms: + headache, + nausea, + abdominal pain, No vomiting, No diarrhea Note: Pt reports depressed mood, anxiety, panic attack, unable to sleep or function normally. Review of Systems See HPI for pertinent positives & negatives. A total of 10 systems reviewed and were otherwise negative. Past Medical & Surgical Medical Problems: (1) Migraines (2) Neuropathy Surgical Problems: (1) H/O section (2) History of gastrectomy (3) Ulcer Family History Diabetes mellitus FH: cancer Hypertension Social History Smoking Status: Current Every Day Smoker Alcohol Use: none Drug Use: none Current/Historical Medications Scheduled Gabapentin (Neurontin), 800 MG PO TID Mirtazapine Soltab (Remeron Soltab), 30 MG PO PM Pantoprazole (Pantoprazole Sodium), 40 MG PO QAM Sucralfate (Sucralfate), 1 GM PO QID Topiramate (Topamax), 50 MG PO BID Scheduled PRN Tramadol HCl (Tramadol HCl), 25-50 MG PO Q6H PRN for Pain Allergies Coded Allergies: Ketorolac Tromethamine (Unverified Allergy, Intermediate, SWELLING/HIVES, 11/25/16) Physical Exam Vital Signs Date Time Temp Pulse Resp B/P (MAP) Pulse Ox O2 Delivery O2 Flow Rate FiO2 11/25/16 18:16 68 18 127/80 99 11/25/16 14:01 89 18 128/72 98 Room Air 11/25/16 12:40 87 18 138/76 97 Room Air 11/25/16 11:45 85 16 98 Room Air 11/25/16 09:50 75 18 107/69 96 Room Air 11/25/16 08:37 86 11/25/16 07:51 36.8 97 20 129/84 98 Room Air Physical Exam GENERAL: Patient is cachectic in appearance. HEAD: Normocephalic atraumatic EYES: Ocular movements intact pupils equal and react to light OROPHARYNX mucous membranes are moist no exudates present no erythema or edema present NECK: Supple no nuchal rigidity CHEST: Good equal expansion LUNGS: Clear and equal to auscultation CARDIAC: Normal S1 and S2 ABDOMEN: Soft nontender no guarding BACK: No CVA tenderness EXTREMITIES: No pain upon palpation normal muscle strength in all groups no clubbing cyanosis or edema NEURO: Patient is following commands and answering questions appropriately. Alert and oriented x3 Cranial Nerves 2-12 grossly intact Medical Decision & Procedures Laboratory Results 11/25/16 08:32 Red Blood Count 4.73, Mean Corpuscular Volume 87.5, Mean Corpuscular Hemoglobin 28.5, Mean Corpuscular Hemoglobin Concent 32.6, Mean Platelet Volume 8.9, Neutrophils (%) (Auto) 59.5, Lymphocytes (%) (Auto) 33.8, Monocytes (%) (Auto) 5.3, Eosinophils (%) (Auto) 0.7, Basophils (%) (Auto) 0.5, Neutrophils # (Auto) 4.91, Lymphocytes # (Auto) 2.79, Monocytes # (Auto) 0.44, Eosinophils # (Auto) 0.06, Basophils # (Auto) 0.04 11/25/16 08:32 Test 11/25/16 08:29 11/25/16 08:32 11/25/16 08:49 11/25/16 10:55 Bedside Glucose 79 mg/dl (70-90) White Blood Count 8.26 K/uL (4.8-10.8) Red Blood Count 4.73 M/uL (4.2-5.4) Hemoglobin 13.5 g/dL (12.0-16.0) Hematocrit 41.4 % (37-47) Mean Corpuscular Volume 87.5 fL (80-100) Mean Corpuscular Hemoglobin 28.5 pg (25-34) Mean Corpuscular Hemoglobin Concent 32.6 g/dl (32-36) Platelet Count 305 K/uL (130-400) Mean Platelet Volume 8.9 fL (7.4-10.4) Neutrophils (%) (Auto) 59.5 % Lymphocytes (%) (Auto) 33.8 % Monocytes (%) (Auto) 5.3 % Eosinophils (%) (Auto) 0.7 % Basophils (%) (Auto) 0.5 % Neutrophils # (Auto) 4.91 K/uL (1.4-6.5) Lymphocytes # (Auto) 2.79 K/uL (1.2-3.4) Monocytes # (Auto) 0.44 K/uL (0.11-0.59) Eosinophils # (Auto) 0.06 K/uL (0-0.5) Basophils # (Auto) 0.04 K/uL (0-0.2) RDW Standard Deviation 66.8 fL (36.4-46.3) RDW Coefficient of Variation 21.0 % (11.5-14.5) Immature Granulocyte % (Auto) 0.2 % Immature Granulocyte # (Auto) 0.02 K/uL (0.00-0.02) Nucleated RBC Absolute Count (auto) 0.11 K/uL (0-0) Nucleated Red Blood Cells % 1.4 % Acanthocytes 1+ Anion Gap 6.0 mmol/L (3-11) Est Creatinine Clear Calc Drug Dose 103.0 ml/min Estimated GFR () 129.5 Estimated GFR (Non- 111.7 BUN/Creatinine Ratio 14.0 (10-20) Calcium Level 8.3 mg/dl (8.5-10.1) Total Bilirubin 0.2 mg/dl (0.2-1) Direct Bilirubin < 0.1 mg/dl (0-0.2) Aspartate Amino Transf (AST/SGOT) 15 U/L (15-37) Alanine Aminotransferase (ALT/SGPT) 17 U/L (12-78) Alkaline Phosphatase 63 U/L (45-117) Total Protein 7.0 gm/dl (6.4-8.2) Albumin 3.6 gm/dl (3.4-5.0) Lipase 141 U/L (73-393) Thyroid Stimulating Hormone (TSH) 0.214 uIu/ml (0.300-4.500) Ethyl Alcohol mg/dL 174.0 mg/dl (0-3) Free Thyroxine 0.89 ng/dl (0.80-1.60) Urine Color YELLOW Urine Appearance CLEAR (CLEAR) Urine pH 5.0 (4.5-7.5) Urine Specific [place] 1.020 (1.000-1.030) Urine Protein NEG (NEG) Urine Glucose (UA) NEG (NEG) Urine Ketones NEG (NEG) Urine Occult Blood NEG (NEG) Urine Nitrite NEG (NEG) Urine Bilirubin NEG (NEG) Urine Urobilinogen NEG (NEG) Urine Leukocyte Esterase NEG (NEG) Urine Opiates Screen NEG (NEG) Urine Methadone, Qualitative NEG (NEG) Urine Barbiturates NEG (NEG) Urine Phencyclidine (PCP) Level NEG (NEG) Ur Amphetamine/Methamphetamine NEG (NEG) MDMA (Ecstasy) Screen NEG (NEG) Urine Benzodiazepines Screen NEG (NEG) Urine Cocaine Metabolite NEG (NEG) Urine Marijuana (THC) NEG (NEG) Labs reviewed by ED physician. Medications Administered Medications (Trade) Dose Ordered Sig/Saurabh Route Start Time Stop Time Status Last Admin Dose Admin Acetaminophen (Tylenol Tab) 1,000 mg NOW STAT PO 11/25/16 08:52 11/25/16 08:53 DC 11/25/16 09:02 1,000 MG Folic Acid (Folvite Tab) 1 mg NOW STAT PO 11/25/16 09:20 11/25/16 09:21 DC 11/25/16 09:49 1 MG Thiamine HCl (Vitamin B-1 Tab) 100 mg NOW STAT PO 11/25/16 09:20 11/25/16 09:21 DC 11/25/16 09:49 100 MG Famotidine (Pepcid Tab) 20 mg NOW STAT PO 11/25/16 12:47 11/25/16 12:50 DC 11/25/16 12:59 20 MG Sucralfate (Carafate Tab) 1 gm NOW ONCE PO 11/25/16 13:00 11/25/16 13:01 DC 11/25/16 12:59 1 GM Ondansetron HCl (Zofran Odt) 4 mg ONE STAT PO 11/25/16 12:47 11/25/16 12:50 DC 11/25/16 12:58 4 MG Oxycodone HCl (Roxicodone Immediate Rel Tab) 5 mg NOW STAT PO 11/25/16 12:47 11/25/16 12:50 DC 11/25/16 12:59 5 MG Al Hydroxide/Mg Hydroxide (Maalox Susp) 30 ml STK-MED ONCE .ROUTE 11/25/16 12:54 11/25/16 12:55 DC 11/25/16 12:59 30 ML Lidocaine HCl (Viscous Lidocaine 2% Soln) 20 ml STK-MED ONCE .ROUTE 11/25/16 12:54 11/25/16 12:55 DC 11/25/16 12:59 20 ML Clonidine HCl (Anevyrel-Kvj-1 0.3mg/24hr Patch) 1 patch NOW STAT TD 11/25/16 13:35 11/25/16 13:36 DC 11/25/16 14:00 1 PATCH Lorazepam (Ativan Tab) 1 mg NOW STAT SL 11/25/16 13:35 11/25/16 13:36 DC 11/25/16 13:59 1 MG Sucralfate (Carafate Tab) 1 gm QID PO 11/25/16 17:00 11/25/16 19:34 DC 11/25/16 17:29 1 GM Pantoprazole Sodium (Protonix Tab) 40 mg DAILY STAT PO 11/25/16 15:06 11/25/16 15:09 DC 11/25/16 15:47 40 MG Tramadol HCl (Ultram Tab) 50 mg Q4H PRN PO 11/25/16 15:15 11/25/16 19:34 DC 11/25/16 17:28 50 MG ED Course 0755: At this time, the patient was evaluated by the medical student. The students findings were discussed with me. We discussed a possible treatment plan and differential diagnoses for the patient. 0849: Past medical records reviewed. The patient was evaluated in room A5. A complete history and physical examination was performed. 0852: Acetaminophen 1000 mg PO. 0920: Thiamine HCl 100 mg PO, Folic Acid 1 mg PO. 1247: Oxycodone HCl 5 mg PO, Ondansetron HCl 4 mg PO, Famotidine 20 mg PO. 1254: Lidocaine HCl 20 ml PO, Al Hydroxide/Mg Hydroxide 30 ml PO. 1300: Sucralfate 1 gm PO. 1335: Lorazepam 1 mg SL, Clonidine HCl 1 patch TD. 1500: The patient was signed out to Dr. Muñoz at the end of my shift. Medical Decision Differential diagnosis: Etiologies such as mood disorder, infection, hypoglycemia, electrolyte abnormalities, cardiac sources, intracerebral event, toxicologic, neurologic, as well as others were entertained. This is a 46-year-old female who presents emergency department complaining of suicidal ideation. The patient is intoxicated upon arrival to emergency department. Patient was observed in the emergency department until her intoxication did clear. She was signed out to Dr. Muñoz pending mental health evaluation. Medication Reconcilliation Current Medication List: was personally reviewed by me Blood Pressure Screening Patient's blood pressure: Elevated blood pressure Blood pressure disposition: Referred to PCP Impression Primary Impression: Alcohol intoxication Additional Impression: Mood disorder Scribe Attestation The scribe's documentation has been prepared under my direction and personally reviewed by me in its entirety. I confirm that the note above accurately reflects all work, treatment, procedures, and medical decision making performed by me. Departure Information Dispostion Still a Patient Referrals No Doctor, Assigned (PCP) Forms HOME CARE DOCUMENTATION FORM, IMPORTANT VISIT INFORMATION Patient Instructions My [facility] Problem Qualifiers Primary Impression: Alcohol intoxication Complication of substance-induced condition: uncomplicated Qualified Codes: F10.920 - Alcohol use, unspecified with intoxication, uncomplicated
[2016-11-25] MEDS ORDERED: PANTOprazole SOD 40 MG TAB PO STA (15:06)
[2016-11-25] MEDS ORDERED: TRAMADOL HCL 50 MG TAB PO PRN (15:15)
[2016-11-25] MEDS ORDERED: SUCRALFATE 1 GM TAB PO SCH (17:00)
--- NOTE | 2016-11-25 17:24 | EMERGENCY ROOM VISIT NOTE ---
ED Visit Note First contact with patient: 15:02 I assumed care at the change of shift. The patient was felt medically clear for a psychiatric evaluation and voluntary psychiatric admission. The patient is doing well, she has been accepted at [facility]. She is being transported, the papers for transport were completed.
[2016-11-25 18:16] VITALS: BP 127/80; PULSE 68; O2SAT 99
[2016-11-25] MEDS ORDERED: TOPIRAMATE 50 MG TAB PO SCH (21:00)
[2016-11-25] MEDS ORDERED: GABAPENTIN 800 MG TAB PO SCH (21:00)
[2016-11-25] MEDS ORDERED: MIRTAZAPINE TAB 15 MG TAB PO SCH (21:00)
== END 2016-11-25 18:19 ==
LOC: C.EDB 07:50 → C.EDA 18:19
DX: F10.129 Alcohol abuse with intoxication, unspecified (principal); Y90.6 Blood alcohol level of 120-199 mg/100 ml; F39 Unspecified mood [affective] disorder; F17.200 Nicotine dependence, unspecified, uncomplicated; Z79.899 Other long term (current) drug therapy; Z87.19 Personal history of other diseases of the digestive system; Z88.8 Allergy status to other drugs, medicaments and biological substances; Z80.9 Family history of malignant neoplasm, unspecified; Z83.3 Family history of diabetes mellitus; Z82.49 Family history of ischemic heart disease and other diseases of the circulatory system

== ENCOUNTER 2017-05-11 12:45 | Emergency (ER) | payer OTHER ==
[~2017-05-11] VITALS: Ht 170.2 cm; Wt 65.5 kg
[~2017-05-11 12:45] MED LIST changes: +MIRT30TA2 PO
[2017-05-11 12:50] VITALS: TEMP 37; Ht 170.2 cm; Wt 65.5 kg
[2017-05-11] MEDS ORDERED: PANT40TA PO (13:46)
[2017-05-11] MEDS ORDERED: GABA800T2 PO (13:46)
[2017-05-11] MEDS ORDERED: TOPI50TA24 PO (13:46)
[2017-05-11 13:56] VITALS: BP 135/81; PULSE 82; O2SAT 98
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
== END 2017-05-11 13:56 | disposition home or self-care (01) ==
LOC: C.EDB 12:47 → C.EDD 13:56
DX: Z76.0 Encounter for issue of repeat prescription (principal); G62.9 Polyneuropathy, unspecified; K27.9 Peptic ulcer, site unspecified, unspecified as acute or chronic, without hemorrhage or perforation; Z90.49 Acquired absence of other specified parts of digestive tract; Z72.0 Tobacco use; Z98.891 History of uterine scar from previous surgery; Z79.899 Other long term (current) drug therapy

== ENCOUNTER 2017-05-20 13:15 | Emergency (ER) | payer OTHER ==
[~2017-05-20] VITALS: Ht 170.2 cm; Wt 67.0 kg
[2017-05-20 13:20] VITALS: Ht 170.2 cm; Wt 67.0 kg
[2017-05-20] MEDS ORDERED: TRAMADOL HCL 50 MG TAB PO STA (13:37)
[2017-05-20] MEDS ORDERED: IBUPROFEN 600 MG TAB PO STA (13:37)
--- NOTE | 2017-05-20 13:43 | EMERGENCY ROOM VISIT NOTE ---
History First contact with patient: 13:23 Chief Complaint: ANKLE PAIN Stated Complaint: LEFT ANKLE PAIN SCIATIC NERVE, GROIN AREA History of Present Illness The patient is a 46 year old female who presents to the Emergency Room with complaints of continued left ankle pain for the last 4 weeks. The patient rolled the left ankle inwards 4 weeks ago going down steps. She went to an emergency department where it was x-rayed. She was told that she had a ligament tear and possibly a hairline fracture. The patient has been trying ibuprofen with minimal relief. She is able to bear weight with significant pain. She denies any previous ankle injuries. No pain into the foot. Review of Systems 6 system review negative. Please see pertinent positives in the history of present illness section. Past Medical/Surgical History Medical Problems: (1) Migraines (2) Neuropathy Surgical Problems: (1) H/O section (2) History of gastrectomy (3) Ulcer DVT Family History Diabetes mellitus FH: cancer Hypertension Social History Smoking Status: Current Every Day Smoker Alcohol Use: none Drug Use: none Housing Status: other [facility] Current/Historical Medications Scheduled Gabapentin (Gabapentin), 600 MG PO QID Mirtazapine Soltab (Remeron Soltab), 30 MG PO PM Pantoprazole (Pantoprazole Sodium), 40 MG PO QAM Sucralfate (Sucralfate), 1 GM PO QID Topiramate (Topamax), 100 MG PO BID Scheduled PRN Ibuprofen (Motrin), 600 MG PO Q6H PRN for Pain Tramadol (Ultram), 50 MG PO Q4H PRN for Pain Physical Exam Vital Signs Date Time Temp Pulse Resp B/P (MAP) Pulse Ox O2 Delivery O2 Flow Rate FiO2 05/20/17 14:58 36.8 95 18 157/87 98 05/20/17 13:20 36.8 95 20 157/87 98 Room Air Physical Exam VITALS: Vitals are noted on the nurse's note and reviewed by myself. Vital signs stable. GENERAL: 46-year-old female, in no acute distress, nondiaphoretic, well- developed well-nourished. SKIN: The skin was intact HEAD: Normocephalic atraumatic. MUSCULOSKELETAL: Left ANKLE: Some ligamentous instability noted of the deltoid ligament. DP pulse +2. Minimal swelling noted. Slight ecchymosis. Mild tenderness over the medial malleolus. No tenderness over the fifth metatarsal. No tenderness over the rest of the leg. NEURO: Patient was alert and oriented to person place and time. Normal sensation to touch. No focal neurological deficits. Medical Decision & Procedures ER Provider Diagnostic Interpretation: Ankle x-ray IMPRESSION: No acute osseous injury. Electronically signed by: Arturo Russell M.D. 05/20/2017 2:11 PM Dictated Date/Time: 05/20/2017 2:09 PM The status of this report is Signed. Draft = Not yet reviewed or approved by Radiologist. Medications Administered Medications (Trade) Dose Ordered Sig/Saurabh Route Start Time Stop Time Status Last Admin Dose Admin Tramadol HCl (Ultram Tab) 50 mg NOW STAT PO 05/20/17 13:37 05/20/17 13:39 DC 05/20/17 13:51 50 MG Ibuprofen (Motrin Tab) 600 mg NOW STAT PO 05/20/17 13:37 05/20/17 13:39 DC 05/20/17 13:52 600 MG ED Course The patient was seen and examined She was medicated with Ultram and ibuprofen Imaging was performed and reviewed The patient was put in an Max wrap and given crutches Discharge instructions were reviewed, and she was discharged in good condition Medical Decision Differential diagnosis: Ankle sprain, fracture This patient is a 46-year-old female that presents to the emergency department with continued left ankle pain after a bad sprain a few weeks ago. On exam, she did have slight ligamentous injury. X-rays were negative for fracture. She likely has a fairly severe sprain. The patient was offered a walking boot, which she declined. She requested something that would fit in her shoe. The patient was given an Max wrap. She was given a short prescription of Motrin and Ultram. She was instructed to follow-up with orthopedics if there is no improvement in the next 1-2 weeks. She was comfortable with this plan, discharged in good condition This chart was completed in part utilizing [employer] Voice Recognition software. Attempts were made to minimize the grammatical errors, random word insertions, pronoun errors and incomplete sentences. Any formal questions or concerns about the content, text or information contained within the body of this dictation should be directly addressed to the provider for clarification. Medication Reconcilliation Current Medication List: was personally reviewed by me Blood Pressure Screening Patient's blood pressure: Elevated blood pressure Blood pressure disposition: Did not require urgent referral Impression Primary Impression: Left ankle sprain Departure Information Dispostion Home / Self-Care Condition GOOD Prescriptions Ibuprofen (Motrin) 600 Mg Tab 600 MG PO Q6H Y for Pain, #20 TAB For Initial Treatment Prov: Josette Mancia PA-C 05/20/17 Tramadol (Ultram) 50 Mg Tab 50 MG PO Q4H Y for Pain, #15 TAB Prov: Josette Mancia PA-C 05/20/17 Referrals No Doctor, Assigned (PCP) Rafiq Barron D.O. Patient Instructions ED Sprain Ankle, My [facility] Additional Instructions You have been evaluated in the emergency department for left ankle pain. This is likely due to a bad sprain. Please apply ice for 20 minute intervals and elevate the left ankle as much as possible. I would also recommend minimal weightbearing if possible. Please always keep the ankle wrapped while up and about. Ibuprofen 600 mg every 6 hours Ultram 1 tab every 4 hours for severe pain. Do not drink alcohol or drive while taking this medication. Please follow-up with an orthopedic doctor if there is no improvement in the next 1-2 weeks. Do not hesitate to return to the emergency department with any new, worsening or concerning symptoms Work Instructions Return To Work: 2 days
--- NOTE | 2017-05-20 14:12 | DIAGNOSTIC IMAGING REPORT ---
L ANKLE MIN 3 VIEWS ROUTINE CLINICAL HISTORY: 46 years-old Female presenting with L ankle pain ? fx medial malleolus . TECHNIQUE: Frontal, mortise, and lateral views of the left ankle were obtained. COMPARISON: None. FINDINGS: Ankle mortise intact. No acute fracture or malalignment. No advanced degenerative change. Mild stiff diffuse soft tissue swelling. IMPRESSION: No acute osseous injury. Electronically signed by: Arturo Russell M.D. 05/20/2017 2:11 PM Dictated Date/Time: 05/20/2017 2:09 PM
[2017-05-20] MEDS ORDERED: NRN600 PO (14:19)
[2017-05-20] MEDS ORDERED: TOPI100T45 PO (14:19)
[2017-05-20] MEDS ORDERED: IBUP600T44 PO (14:37)
[2017-05-20] MEDS ORDERED: TRAM-10 PO (14:37)
[2017-05-20 14:58] VITALS: BP 157/87; PULSE 95; TEMP 36.8; O2SAT 98
== END 2017-05-20 14:59 | disposition home or self-care (01) ==
LOC: C.EDB 13:16 → C.EDD 14:59
DX: S93.402A Sprain of unspecified ligament of left ankle, initial encounter (principal); X50.1XXA Overexertion from prolonged static or awkward postures, initial encounter; Y92.9 Unspecified place or not applicable; G43.909 Migraine, unspecified, not intractable, without status migrainosus; G62.9 Polyneuropathy, unspecified; Z83.3 Family history of diabetes mellitus; Z82.49 Family history of ischemic heart disease and other diseases of the circulatory system; F17.210 Nicotine dependence, cigarettes, uncomplicated; Z79.899 Other long term (current) drug therapy

== ENCOUNTER 2017-05-24 12:30 | Emergency (ER) | payer OTHER ==
[~2017-05-24] VITALS: Ht 170.2 cm; Wt 65.0 kg
[~2017-05-24 12:30] MED LIST changes: -GABA800T PO; +IBUP600T44 PO; +NRN600 PO; +TOPI100T45 PO; -TOPI50TA24 PO; +TRAM-10 PO; -ULT50X PO
[2017-05-24 12:32] VITALS: TEMP 36.6; Ht 170.2 cm; Wt 65.0 kg
[2017-05-24] MEDS ORDERED: OMEP40CA41 PO (13:10)
[2017-05-24 13:35] VITALS: BP 138/93; PULSE 81; O2SAT 98
--- NOTE | 2017-05-24 15:12 | EMERGENCY ROOM VISIT NOTE ---
History First contact with patient: 12:46 Chief Complaint: ANKLE PAIN Stated Complaint: SCIATIC NERVE LEFT SIDE,LEFT ANKLE PAIN History of Present Illness The patient is a 46 year old female who presents to the Emergency Room with complaints of persistent left ankle pain, and worsening sciatic pain. The patient reports that she injured her ankle over a month ago, and has not had any improvement. The patient was seen here 4 days ago with a repeat ankle x- ray. The patient reports that she is employed at 2 different places, and cannot be slowed down by crutches or a boot. She admits to being on her feet all the time, which worsens her ankle pain and sciatic pain. The patient is requesting a new prescription for Ultram to help with the pain. She rates her discomfort a 7 out of 10 with weightbearing. Review of Systems 10 system review was performed and was negative except for pertinent positives and negatives as indicated in history of present illness Past Medical/Surgical History Medical Problems: (1) Migraines (2) Neuropathy Surgical Problems: (1) H/O section (2) History of gastrectomy (3) Ulcer Family History Diabetes mellitus FH: cancer Hypertension Social History Smoking Status: Current Every Day Smoker Alcohol Use: none Drug Use: none Housing Status: other Current/Historical Medications Scheduled Gabapentin (Gabapentin), 600 MG PO QID Omeprazole (Prilosec), 40 MG PO DAILY Topiramate (Topamax), 100 MG PO BID Scheduled PRN Ibuprofen (Motrin), 600 MG PO Q6H PRN for Pain Physical Exam Vital Signs Date Time Temp Pulse Resp B/P (MAP) Pulse Ox O2 Delivery O2 Flow Rate FiO2 05/24/17 13:35 81 16 138/93 98 Room Air 05/24/17 12:32 36.6 94 16 156/101 98 Room Air Physical Exam CONSTITUTIONAL: Healthy and well nourished. Alert and oriented X 3 with positive affect. Patient does not appear in any acute distress. HEENT: Normocephalic, atraumatic. Pupils equal, round and reactive. NECK: Full active range of motion without discomfort. RESPIRATORY: Clear to auscultation bilaterally with no wheezing, crackles, rhonchi or stridor. CARDIOVASCULAR: Regular rate and rhythm with no murmurs, rubs or gallops. GASTROINTESTINAL: Bowel sounds present in all quadrants. Soft and nontender to palpation. MUSCULOSKELETAL: Examination shows tenderness to palpation through the entire ankle region, especially over the deltoid ligament. She does have a mildly positive anterior draw test. No focal tenderness to the dorsal midfoot, metatarsals, phalanges, calcaneus or Achilles tendon. She also has tenderness to palpation through the left lower lumbar region and SI joint. Negative logroll. Negative sitting straight leg raise. INTEGUMENTARY: No rash or other significant dermatologic conditions noted. NEUROLOGIC: Left lower extremity is sensory intact. Medical Decision & Procedures ED Course Patient history and physical exam were performed. Nurse's notes were reviewed. Vital signs were reviewed and were normal. The patient is adamant that she is too busy to use crutches or a walking boot. As indicated in history of present illness, the patient is requesting a prescription for tramadol. The patient was advised that she is not addressing the main problem, which is allowing time for her injury of the ankle to heal. She was advised that her ankle pain is causing an antalgic gait, causing exacerbation of her sciatic pain. I strongly suggested a pair of crutches for best relief, but also offered a fracture boot. The patient initially thought about taking the crutches, then again stated that she would not use them. I explained that she needs further orthopedic reevaluation and management. She was instructed to contact her PCP for this referral. The patient was advised that I would not provide further Ultram prescriptions, and that she would need to discuss further pain management with her PCP. The patient was happy with plan of care, voiced understanding of all discharge instructions, and rated her discomfort a 5 out of 10 at the conclusion of my exam. Medical Decision Medication Reconcilliation Current Medication List: was personally reviewed by me Blood Pressure Screening Patient's blood pressure: Normal blood pressure Impression Primary Impression: Moderate left ankle sprain Additional Impression: Sciatica, left side Departure Information Dispostion Home / Self-Care Condition GOOD Referrals Rafiq Barron D.O. Forms HOME CARE DOCUMENTATION FORM, IMPORTANT VISIT INFORMATION Patient Instructions My [facility] Additional Instructions Follow-up with [facility] (Dr. Barron) for further reevaluation and management. Discuss further pain management with your family doctor as needed. Problem Qualifiers Primary Impression: Moderate left ankle sprain Encounter type: initial encounter Qualified Codes: S93.402A - Sprain of unspecified ligament of left ankle, initial encounter
== END 2017-05-24 13:40 | disposition home or self-care (01) ==
LOC: C.EDB 12:31 → C.EDD 13:40
DX: S93.402A Sprain of unspecified ligament of left ankle, initial encounter (principal); X58.XXXA Exposure to other specified factors, initial encounter; Z83.3 Family history of diabetes mellitus; Z82.49 Family history of ischemic heart disease and other diseases of the circulatory system; F17.200 Nicotine dependence, unspecified, uncomplicated

== ENCOUNTER 2017-05-30 22:02 | Emergency (ER) | payer OTHER ==
[~2017-05-30] VITALS: Ht 170.2 cm; Wt 66.5 kg
[~2017-05-30 22:02] MED LIST changes: -MIRT30TA2 PO; +OMEP40CA41 PO; -PRT40 PO; -SUCR1TAB PO; -TRAM-10 PO
[2017-05-30 22:05] VITALS: O2SAT 98; Ht 170.2 cm; Wt 66.5 kg
[2017-05-30] MEDS ORDERED: LORAZEPAM 2 MG/ML 1 ML VIAL IV STA (22:27)
[2017-05-30] MEDS ORDERED: MULTI-VITAMIN INFUSION INJ 10 ML, THIAMINE HCL INJ 100 MG, FoLIC ACID INJ 1 MG in SODIU... IV ONE (22:30)
[2017-05-30] MEDS ORDERED: ASPI-391 PO (22:40)
[2017-05-30] MEDS ORDERED: LORAZEPAM 2 MG/ML 1 ML VIAL IM STA ×2 (22:56→23:57)
[2017-05-30] MEDS ORDERED: HALOPERIDOL LACTATE 5 MG/ML 1 ML VIAL IM STA (23:57)
[2017-05-30] MEDS ORDERED: HALOPERIDOL LACTATE 5 MG/ML 1 ML VIAL ONE (23:57)
[2017-05-31 00:53] LABS: BASO % 0.6 %; BASO ABS # 0.04 K/uL (0-0.2); EOS % 1.7 %; EOS ABS # 0.12 K/uL (0-0.5); HEMATOCRIT 41.5 % (37-47); HEMOGLOBIN 13.3 g/dL (12.0-16.0); IG# 0.01 K/uL (0.00-0.02); LYMPH % 46.5 %; LYMPH ABS # 3.35 K/uL (1.2-3.4); MEAN CELL VOLUME 85.9 fL (80-100); MEAN CORPUSCULAR HEMOGLOBIN 27.5 pg (25-34); MEAN PLATELET VOLUME 9.3 fL (7.4-10.4); MONO % 5.3 %; MONO ABS # 0.38 K/uL (0.11-0.59); NEUT % 45.8 %; NEUT ABS # 3.31 K/uL (1.4-6.5); PLATELET COUNT 272 K/uL (130-400); RED CELL DISTRIBUTION WIDTH CV 13.3 % (11.5-14.5); RED CELL DISTRIBUTION WIDTH SD 41.8 fL (36.4-46.3); WHITE BLOOD COUNT 7.21 K/uL (4.8-10.8)
[2017-05-31 01:03] LABS: INR 1.1 (0.9-1.1); PTT PATIENT 23.8 SECONDS (21.0-31.0)
[2017-05-31 01:30] LABS: ALBUMIN 3.4 gm/dl (3.4-5.0); CREATININE 0.65 mg/dl (0.60-1.20); POTASSIUM 3.9 mmol/L (3.5-5.1); TOTAL PROTEIN 6.5 gm/dl (6.4-8.2)
--- NOTE | 2017-05-31 06:24 | EMERGENCY ROOM VISIT NOTE ---
ED Visit Note First contact with patient: 22:22 CHIEF COMPLAINT: Altered mental status from Alcohol overdose HISTORY OF PRESENT ILLNESS: This 46 year old female patient presents to the emergency department via ambulance for evaluation of altered mental status, presumably from alcohol intoxication. The patient was found by police sleeping outside [facility] [employer]. She is evidently living at a [facility] locally. She has been seen several times in the ER the past month for various complaints. The patient is to drink alcohol and denies drug use. REVIEW OF SYSTEMS: Review of systems was somewhat limited secondary to patient' s presumed alcohol intoxication status. Review of systems was performed to the best of our ability and reperformed as the patient began to sober up. All other systems were reviewed and are negative. ALLERGIES: See EMR MEDICATIONS: See EMR PMH: See EMR SOCIAL HISTORY: Drinks etoh PHYSICAL EXAM VITALS: Vitals are noted on the nurse's note and reviewed by myself. Vital signs stable. GENERAL: White female, who is intoxicated and not cooperative. HEAD: Normocephalic atraumatic. EARS: External ear normal. External auditory canals clear, tympanic membranes pearly busby without erythema or effusion bilaterally. EYES: Pupils equal round and reactive to light and accommodation. Conjunctivae without injection, sclerae without icterus. Extraocular movements intact. NOSE: Patent, turbinates without inflammation or discharge. MOUTH: Mucous membranes moist. Tonsils are not enlarged. Pharynx without erythema, blood, vomitus, or exudate. Uvula midline. Airway patent. NECK: Supple without nuchal rigidity. No lymphadenopathy. Cervical spine is nontender. HEART: Regular rate and rhythm without murmurs gallops or rubs. LUNGS: Clear to auscultation bilaterally without wheezes, rales or rhonchi. No retractions or accessory muscle use. ABDOMEN: Positive normal bowel sounds x 4. Soft, nontender, without masses or organomegaly. No guarding or rebound tenderness. MUSCULOSKELETAL: No muscle atrophy, erythema, or edema noted. Gross motor function intact to all extremities. NEURO: Patient was alert to person but not place or time. They appear with altered mental status. SKIN: The skin was without rashes, erythema, edema, or bruising. No Tenting of the skin. EMERGENCY DEPARTMENT COURSE: Physical exam and history was performed. Nursing notes and EMR were reviewed. The patient appears to be altered on my examination. I suspect this is from an alcohol overdose. Conservative care measures and aspiration precautions were instituted. The patient was placed on ammonia solution preparer and watched during the patient's stay. The patient was placed in a prone position. The patient was very uncooperative with care. She was increasingly belligerent with staff and was attempting to get out of bed and leave. The patient was not stable on her feet to ambulate and was a clear fall risk. The patient was given 2 mg IM Ativan without significant relief. Her escalating behavior continued, and she was felt to be a harm to herself. She was given an additional 2 mg IM Ativan and 5 mg IM Haldol. The patient was comfortable after administration of these medications and was able to sleep comfortably. Blood work was obtained and was reviewed. The patient's blood alcohol level was 300. This appears to be the primary cause of the altered status. Patient was reevaluated multiple times throughout the course of their emergency department stay. Over time the patient did sober up and was able to talk, walk , and drink fluids without difficulty. The patient was felt stable for discharge home. The patient was given alcohol intoxication handouts. The patient was discharged in stable condition. Differential diagnosis: Etiologies such as alcohol intoxication, metabolic, infection, hypoglycemia, electrolyte abnormalities, cardiac sources, intracerebral event, toxicologic, neurologic, as well as others were entertained. DIAGNOSIS: Acute alcohol intoxication Critical Care: I have personally spent greater than 30 minutes of critical care time in the direct management of this patient. This includes bedside care, interpretation of diagnostic studies, and testing, discussion with consultants, patient, and family members, and other required patient management activities. This 30 minutes is in excess of all separately billable procedures. Problem List Medical Problems: (1) Migraines Status: Chronic (2) Neuropathy Status: Chronic Surgical Problems: (1) H/O section Status: Chronic (2) History of gastrectomy Status: Resolved (3) Ulcer Status: Resolved Current/Historical Medications Scheduled Gabapentin (Gabapentin), 600 MG PO QID Omeprazole (Prilosec), 40 MG PO DAILY Topiramate (Topamax), 100 MG PO BID Scheduled PRN Rurnurq-Anuwjbmjjaoyv-Qrvqehzm (Excedrin Extra Strength), 1 TAB PO Q6H PRN for Pain Allergies Coded Allergies: Ketorolac Tromethamine (Verified Allergy, Intermediate, SWELLING/HIVES, ) Sumatriptan (Verified Allergy, Intermediate, Nausea/Vomiting, 05/30/17) Vital Signs Date Time Temp Pulse Resp B/P (MAP) Pulse Ox O2 Delivery O2 Flow Rate FiO2 05/31/17 06:11 80 16 104/70 97 Room Air 05/31/17 06:04 77 05/31/17 05:26 101 16 105/60 96 05/31/17 04:00 86 16 96/54 98 Room Air 05/31/17 03:05 88 16 100/56 98 Room Air 05/31/17 02:16 79 16 97/55 96 Room Air 05/31/17 02:04 77 05/31/17 00:46 69 16 104/63 97 Room Air 05/30/17 23:47 78 16 91/60 100 Room Air 05/30/17 23:04 74 16 124/76 96 Room Air 05/30/17 22:21 92 05/30/17 22:05 36.6 100 20 121/77 99 Room Air 05/30/17 22:05 98 Room Air Laboratory Results 05/31/17 00:44 Red Blood Count 4.83, Mean Corpuscular Volume 85.9, Mean Corpuscular Hemoglobin 27.5, Mean Corpuscular Hemoglobin Concent 32.0, Mean Platelet Volume 9.3, Neutrophils (%) (Auto) 45.8, Lymphocytes (%) (Auto) 46.5, Monocytes (%) (Auto) 5.3, Eosinophils (%) (Auto) 1.7, Basophils (%) (Auto) 0.6, Neutrophils # (Auto) 3.31, Lymphocytes # (Auto) 3.35, Monocytes # (Auto) 0.38, Eosinophils # (Auto) 0.12, Basophils # (Auto) 0.04 05/31/17 00:44 Test 05/31/17 00:44 White Blood Count 7.21 K/uL (4.8-10.8) Red Blood Count 4.83 M/uL (4.2-5.4) Hemoglobin 13.3 g/dL (12.0-16.0) Hematocrit 41.5 % (37-47) Mean Corpuscular Volume 85.9 fL (80-100) Mean Corpuscular Hemoglobin 27.5 pg (25-34) Mean Corpuscular Hemoglobin Concent 32.0 g/dl (32-36) Platelet Count 272 K/uL (130-400) Mean Platelet Volume 9.3 fL (7.4-10.4) Neutrophils (%) (Auto) 45.8 % Lymphocytes (%) (Auto) 46.5 % Monocytes (%) (Auto) 5.3 % Eosinophils (%) (Auto) 1.7 % Basophils (%) (Auto) 0.6 % Neutrophils # (Auto) 3.31 K/uL (1.4-6.5) Lymphocytes # (Auto) 3.35 K/uL (1.2-3.4) Monocytes # (Auto) 0.38 K/uL (0.11-0.59) Eosinophils # (Auto) 0.12 K/uL (0-0.5) Basophils # (Auto) 0.04 K/uL (0-0.2) RDW Standard Deviation 41.8 fL (36.4-46.3) RDW Coefficient of Variation 13.3 % (11.5-14.5) Immature Granulocyte % (Auto) 0.1 % Immature Granulocyte # (Auto) 0.01 K/uL (0.00-0.02) Prothrombin Time 11.4 SECONDS (9.0-12.0) Prothromb Time International Ratio 1.1 (0.9-1.1) Activated Partial Thromboplast Time 23.8 SECONDS (21.0-31.0) Partial Thromboplastin Ratio 0.9 Anion Gap 9.0 mmol/L (3-11) Est Creatinine Clear Calc Drug Dose 104.1 ml/min Estimated GFR () 122.5 Estimated GFR (Non- 105.7 BUN/Creatinine Ratio 14.7 (10-20) Calcium Level 8.0 mg/dl (8.5-10.1) Magnesium Level 2.4 mg/dl (1.8-2.4) Total Bilirubin 0.1 mg/dl (0.2-1) Aspartate Amino Transf (AST/SGOT) 16 U/L (15-37) Alanine Aminotransferase (ALT/SGPT) 21 U/L (12-78) Alkaline Phosphatase 55 U/L (45-117) Total Protein 6.5 gm/dl (6.4-8.2) Albumin 3.4 gm/dl (3.4-5.0) Globulin 3.1 gm/dl (2.5-4.0) Albumin/Globulin Ratio 1.1 (0.9-2) Lipase 174 U/L (73-393) Chemistry Specimen Hemolysis Ethyl Alcohol mg/dL 300.0 mg/dl (0-3) Medications Administered Medications (Trade) Dose Ordered Sig/Saurabh Route Start Time Stop Time Status Last Admin Dose Admin Lorazepam (Ativan Inj) 2 mg NOW STAT IM 05/30/17 22:56 05/30/17 22:58 DC 05/30/17 23:04 2 MG Lorazepam (Ativan Inj) 2 mg NOW STAT IM 05/30/17 23:57 05/30/17 23:58 DC 05/31/17 00:04 2 MG Haloperidol Lactate (Haldol Inj) 5 mg NOW STAT IM 05/30/17 23:57 05/30/17 23:58 DC 05/31/17 00:04 5 MG Departure Information Impression Primary Impression: Alcohol use with intoxication Dispostion Home / Self-Care Condition GOOD Referrals Ruiz Rangel D.OMinerva (PCP) Forms HOME CARE DOCUMENTATION FORM, IMPORTANT VISIT INFORMATION Patient Instructions My [facility], ED Alcohol Intoxication Additional Instructions You were seen and evaluated today on an emergency basis only. This is not a substitute for, or an effort to provide, complete comprehensive medical care. It is not possible to recognize and treat all injuries or illnesses in a single emergency department visit. Keep well-hydrated. Small sips of water over a long period of time are better tolerated than large amounts at once. Tylenol 1000 mg every 6 hours as needed for pain (Maximum 3000 mg Tylenol in 24 hr period). Follow up with family doctor as needed. You are welcome to return to the emergency department anytime with new, worsening, or concerning symptoms.
[2017-05-31 09:06] VITALS: BP 110/80; PULSE 93; TEMP 36.6; O2SAT 97
== END 2017-05-31 09:09 | disposition home or self-care (01) ==
LOC: EDBD 22:02 → C.EDA 22:04
DX: F10.929 Alcohol use, unspecified with intoxication, unspecified (principal); Y90.8 Blood alcohol level of 240 mg/100 ml or more; G43.909 Migraine, unspecified, not intractable, without status migrainosus; G62.9 Polyneuropathy, unspecified; Z88.6 Allergy status to analgesic agent; Z88.8 Allergy status to other drugs, medicaments and biological substances

== ENCOUNTER 2017-06-07 03:36 | Inpatient (IN) | payer OTHER ==
[~2017-06-07] VITALS: Ht 170.2 cm; Wt 65.5 kg
[~2017-06-07 03:36] MED LIST changes: +ASPI-391 PO; -IBUP600T44 PO
[2017-06-07 05:00] LABS: BLOOD UREA NITROGEN 11 mg/dl (7-18); CALCIUM 7.7 mg/dl (8.5-10.1); CARBON DIOXIDE 21 mmol/L (21-32); CREATININE 0.66 mg/dl (0.60-1.20); GLUCOSE 103 mg/dl (70-99); POTASSIUM 3.2 mmol/L (3.5-5.1); SODIUM 147 mmol/L (136-145)
[2017-06-07] MEDS ORDERED: POTASSIUM CHLORIDE 10 MEQ TABCR PO STA (05:24)
[2017-06-07] MEDS ORDERED: POTASSIUM CHLORIDE 10 MEQ TABCR ONE (10:06)
[2017-06-07] MEDS ORDERED: LORAZEPAM 1 MG TAB SL STA ×2 (10:19→13:22)
[2017-06-07 11:21] LABS: BASO % 0.6 %; BASO ABS # 0.03 K/uL (0-0.2); EOS % 2.3 %; EOS ABS # 0.12 K/uL (0-0.5); HEMATOCRIT 38.1 % (37-47); HEMOGLOBIN 12.2 g/dL (12.0-16.0); LYMPH % 39.3 %; LYMPH ABS # 2.01 K/uL (1.2-3.4); MEAN CELL VOLUME 85.4 fL (80-100); MEAN CORPUSCULAR HEMOGLOBIN 27.4 pg (25-34); MEAN PLATELET VOLUME 8.9 fL (7.4-10.4); MONO % 8.2 %; MONO ABS # 0.42 K/uL (0.11-0.59); NEUT % 49.6 %; NEUT ABS # 2.54 K/uL (1.4-6.5); PLATELET COUNT 230 K/uL (130-400); RED CELL DISTRIBUTION WIDTH CV 14.1 % (11.5-14.5); RED CELL DISTRIBUTION WIDTH SD 43.3 fL (36.4-46.3); WHITE BLOOD COUNT 5.12 K/uL (4.8-10.8)
[2017-06-07 11:51] LABS: ALBUMIN 3.2 gm/dl (3.4-5.0); ALKALINE PHOSPHATASE 56 U/L (45-117); ALT/SGPT 18 U/L (12-78); AST/SGOT 22 U/L (15-37); TOTAL PROTEIN 5.9 gm/dl (6.4-8.2)
--- NOTE | 2017-06-07 15:37 | History and Physical ---
History & Physical Date & Time of Service: Jun 07, 2017 at 15:37 Chief Complaint: ETOH Primary Care Physician: No Doctor, Assigned History of Present Illness Source: patient, clinic records, hospital records This is a 46yo F with a PMH of alcohol abuse, etoh-induced polyneuropathy and other medical problems listed below who was brought to the ED by police for public intoxication. Patient states that she was drinking at [employer] last night and passed out. Was brought into the ED by police early this AM. Endorses drinking a fifth of vodka and a 12-pack of beer yesterday. Last reported drink at 9pm last night. Has struggled with alcohol abuse for the last 20 years with periods of remission. Relapsed a few weeks ago and has been drinking every day. Endorses history of seizures during etch withdrawal in the past (~1998, 1999). Denies any seizures since. Last attended rehab in [place] in 2005. Currently endorses bilateral tremors, nausea and body aches that started today. Denies confusion, hallucinations, fever, chills, seizures, recent falls, CP, SOB, abdominal pain. Also reports suicidal ideation beginning last evening. Patient had plans to overdose on her medication but did not follow through. States that she still has this ideation. Denies homicidal ideation or auditory/visual hallucinations. Has been staying at [facility] in [place] for the past few weeks but has been living in [place]. Past Medical/Surgical History Medical Problems: (1) H/O: GI bleed Permanent Comment: 2/ PUD. S/p partial gastrectomy in 2007 Status: Chronic (2) Migraines Status: Chronic (3) Polyneuropathy Status: Chronic (4) Sciatica Status: Chronic Surgical Problems: (1) H/O section Status: Chronic (2) History of gastrectomy Status: Resolved (3) Ulcer Status: Resolved Family History Diabetes mellitus FH: cancer FH: heart disease Hypertension Stroke Social History Smoking Status: Current Every Day Smoker (1 ppd) Alcohol Use: heavy (see HPI ) Drug Use: none Housing status: other Allergies Coded Allergies: Ketorolac Tromethamine (Verified Allergy, Intermediate, SWELLING/HIVES, ) Sumatriptan (Verified Allergy, Intermediate, Nausea/Vomiting, 05/30/17) Home Medications Scheduled Gabapentin (Gabapentin), 600 MG PO QID Omeprazole (Prilosec), 40 MG PO DAILY Topiramate (Topamax), 100 MG PO BID Scheduled PRN Iutzlxp-Fvdwuzmgiqhqj-Jawazrbr (Excedrin Extra Strength), 1 TAB PO Q6H PRN for Pain Review of Systems Constitutional: No fever, No chills, No sweats, No weakness Eyes: No worsening of vision, No eye pain ENT: No hearing loss, No nasal symptoms, No sore throat Respiratory: No cough, No sputum, No wheezing, No shortness of breath, No dyspnea on exertion, No dyspnea at rest Cardiovascular: + palpitations, No chest pain, No edema Abdomen: + nausea, + vomiting, No pain, No diarrhea, No constipation Musculoskeletal: + joint pain, + muscle pain Genitourinary - Female: No dysuria, No urinary frequency, No urinary urgency Psychiatric: + depression symptoms, + anxiety, + substance abuse, No anhedonism , No insomnia Integumentary: No rash, No itch, No new/changing skin lesions Physical Exam Vital Signs Date Time Temp Pulse Resp B/P (MAP) Pulse Ox O2 Delivery O2 Flow Rate FiO2 06/07/17 13:50 93 20 139/68 96 Room Air 06/07/17 10:19 36.8 81 18 126/63 97 Room Air 06/07/17 09:48 96 18 142/91 99 Room Air 06/07/17 08:37 86 16 110/75 99 Room Air 06/07/17 07:51 85 16 108/72 94 Room Air 06/07/17 07:46 85 06/07/17 06:31 116/83 06/07/17 06:11 91 18 94 Room Air 06/07/17 06:06 90 16 94 Room Air 06/07/17 06:01 136/85 06/07/17 05:31 89 18 114/66 95 Room Air 06/07/17 04:48 Room Air 06/07/17 03:49 87 General Appearance: + mild distress, + pertinent finding (Walking around in room ) Head: normocephalic, atraumatic Eyes: normal inspection, PERRL ENT: normal ENT inspection, hearing grossly normal, pharynx normal Neck: supple, thyroid normal, trachea midline Respiratory/Chest: chest non-tender, lungs clear, normal breath sounds, no respiratory distress, no accessory muscle use Cardiovascular: no murmur, normal peripheral pulses, + tachycardia Abdomen/GI: normal bowel sounds, non tender, soft, no organomegaly Back: normal inspection Extremities/Musculoskelatal: normal inspection, no calf tenderness, no pedal edema Neurologic/Psych: no motor/sensory deficits, alert, oriented x 3, + depressed affect Skin: normal color, warm/dry Diagnostics Laboratory Results Results Past 24 Hours Test 06/07/17 04:11 06/07/17 10:55 06/07/17 11:09 06/07/17 11:10 Range/Units Sodium Level 147 136-145 mmol/L Potassium Level 3.2 3.5-5.1 mmol/L Chloride Level 116 98-107 mmol/L Carbon Dioxide Level 21 21-32 mmol/L Anion Gap 10.0 3-11 mmol/L Blood Urea Nitrogen 11 7-18 mg/dl Creatinine 0.66 0.60-1.20 mg/dl Estimated GFR () 121.9 Estimated GFR (Non- 105.2 BUN/Creatinine Ratio 17.0 10-20 Random Glucose 103 70-99 mg/dl Calcium Level 7.7 8.5-10.1 mg/dl Ethyl Alcohol mg/dL 298.0 0-3 mg/dl Urine Color YELLOW Urine Appearance CLOUDY CLEAR Urine pH 7.0 4.5-7.5 Urine Specific [place] 1.020 1.000-1.030 Urine Protein NEG NEG Urine Glucose (UA) NEG NEG Urine Ketones NEG NEG Urine Occult Blood NEG NEG Urine Nitrite NEG NEG Urine Bilirubin NEG NEG Urine Urobilinogen NEG NEG Urine Leukocyte Esterase NEG NEG Urine WBC (Auto) 1-5 0-5 /hpf Urine RBC (Auto) 0-4 0-4 /hpf Urine Hyaline Casts (Auto) 5-10 0-5 /lpf Urine Epithelial Cells (Auto) >30 0-5 /lpf Urine Bacteria (Auto) 1+ NEG Urine Test NEG NEG Urine Opiates Screen NEG NEG Urine Methadone, Qualitative NEG NEG Urine Barbiturates NEG NEG Urine Phencyclidine (PCP) Level NEG NEG Ur Amphetamine/Methamphetamine NEG NEG MDMA (Ecstasy) Screen NEG NEG Urine Benzodiazepines Screen NEG NEG Urine Cocaine Metabolite NEG NEG Urine Marijuana (THC) NEG NEG White Blood Count 5.12 4.8-10.8 K/uL Red Blood Count 4.46 4.2-5.4 M/uL Hemoglobin 12.2 12.0-16.0 g/dL Hematocrit 38.1 37-47 % Mean Corpuscular Volume 85.4 80-100 fL Mean Corpuscular Hemoglobin 27.4 25-34 pg Mean Corpuscular Hemoglobin Concent 32.0 32-36 g/dl Platelet Count 230 130-400 K/uL Mean Platelet Volume 8.9 7.4-10.4 fL Neutrophils (%) (Auto) 49.6 % Lymphocytes (%) (Auto) 39.3 % Monocytes (%) (Auto) 8.2 % Eosinophils (%) (Auto) 2.3 % Basophils (%) (Auto) 0.6 % Neutrophils # (Auto) 2.54 1.4-6.5 K/uL Lymphocytes # (Auto) 2.01 1.2-3.4 K/uL Monocytes # (Auto) 0.42 0.11-0.59 K/uL Eosinophils # (Auto) 0.12 0-0.5 K/uL Basophils # (Auto) 0.03 0-0.2 K/uL RDW Standard Deviation 43.3 36.4-46.3 fL RDW Coefficient of Variation 14.1 11.5-14.5 % Immature Granulocyte % (Auto) 0.0 % Immature Granulocyte # (Auto) 0.00 0.00-0.02 K/uL Salicylates Level 2.9 2.8-20 mg/dl Acetaminophen Level 2 10-30 ug/ml Total Bilirubin 0.1 0.2-1 mg/dl Direct Bilirubin < 0.1 0-0.2 mg/dl Aspartate Amino Transf (AST/SGOT) 22 15-37 U/L Alanine Aminotransferase (ALT/SGPT) 18 12-78 U/L Alkaline Phosphatase 56 45-117 U/L Total Protein 5.9 6.4-8.2 gm/dl Albumin 3.2 3.4-5.0 gm/dl Thyroid Stimulating Hormone (TSH) 0.197 0.300-4.500 uIu/ml Microbiology Results 06/07/17 Urine Culture, Received Pending Impression Assessment and Plan This is a 46yo F with a PMH of alcohol abuse, etoh-induced polyneuropathy and other medical problems listed below who was brought to the ED by police for public intoxication. Alcohol withdrawal: -Drinks a fifth of vodka, 12 beers per day x 3 weeks -Last reported drink at 9pm last night -Tremors, nausea, vomiting today -H/o DTs, seizures in alcohol withdrawal in the past -Withdrawal protocol with gabapentin, ativan -PRN ativan for anxiety, nausea -Banana bag -Thiamine daily -Telemetry Suicidal ideation: -Reportedly began yesterday -Plans to overdose on home medications -No HI, auditory or visual hallucinations -Keep as 1:1 on the floor -Psych consulted -Plan for d/c to in-patient psych facility Polyneuropathy: -Etoh induced -Hold home dose gabapentin while on withdrawal protocol -Resume once titrated down to home dose GERD: -Hold home PPI until able to tolerate -IV Protonix push daily H/o Migraines: -No recent migraines -Cont home dose Topamax -Hold Excedrin DVT Ppx: SCDs Code status: FULL PCP: Juan Carlos (recently established care) Dispo: Admitted to telemetry. Discharge planning ordered for placement at in- patient psych facility once medically appropriate. Patient seen in collaboration with Dr. Tracey. Please see addendum. Resuscitation Status FULL VTE Prophylaxis Will order VTE Prophylaxis: Yes Note ATTENDING ADDENDUM Record reviewed. Patient interviewed and examined with Celia Diaz PA-C. Please refer to her documentation for patient's history. Briefly, 46-year-old female who presents to the ED with alcoholism, depression, expressed suicidal ideation. Drinking about 1/5 of vodka and 12 beers a day. Last alcohol consumption evening prior to admission. Starting to experience some nausea and shakes in ED; denies hallucinations EXAM: General-mild distress distress ENT-anicteric Lungs- clear to auscultation; no respiratory distress Cardiovascular- RRR; no murmur; no gallop; no JVD; no pretibial edema Abdomen- + bowel sounds, soft, nontender Extremities- no cyanosis; no calf tenderness Neuro- alert, oriented, resting tremor Skin- warm & dry DATA: Blood alcohol level 298 mg/deciliter. Urine tox screen negative. Other lab studies as noted. ASSESSMENT AND PLAN: Drinking heavily on a regular basis. At risk for alcohol withdrawal syndrome and other complications. Alcohol withdrawal protocol with gabapentin and lorazepam ordered. IV fluids with thiamine, folate, multivitamins ordered. Will need referral to counseling services. Patient expressed suicidal thoughts in ED. Psychiatry consult. Please refer to FREDDIE Diaz's documentation for discussion of other issues. Matt Tracey MD .
[2017-06-07] MEDS: ONDANSETRON INJ 2 MG/ML 2 ML VIAL IV PRN ×2 (16:13→16:14)
[2017-06-07] MEDS ORDERED: LORAZEPAM 2 MG/ML 1 ML VIAL IV PRN ×2 (16:15)
[2017-06-07] MEDS ORDERED: LORAZEPAM 1 MG TAB PO PRN (16:15)
[2017-06-07] MEDS ORDERED: GABAPENTIN 600 MG TAB PO ONE (16:15)
[2017-06-07] MEDS ORDERED: PANTOprazole INJ 40 MG in SYRINGE 0 ML IV SCH (16:30)
[2017-06-07] MEDS ORDERED: LORAZEPAM 1 MG TAB ONE (16:33)
--- NOTE | 2017-06-07 16:37 | EMERGENCY ROOM VISIT NOTE ---
ED Visit Note First contact with patient: 10:15 Patient was initially seen and evaluated by Jo Ann Gordon PA-C. The case was signed out to me at 0700 hrs. Case was signed out as the patient upon initial presentation was quite intoxicated. I evaluated the patient once she began to sober, and the patient then noted that she had thoughts to harm herself, and that she has a plan to overdose on all of her prescribed medication. She makes it known that she has tried committing suicide in the past. I then elected to add additional orders given the statements. To review, CBC reveals no leukocytosis or anemia. metabolic panel reveals sodium 147, potassium low at 3.2, and chloride high at 116. kidney function okay. calcium low 7.7. total protein at 5.9 and tsh low at 0.197. urine reveals what I believe to be a contaminated sample. Tox screen negative. Alcohol upon presentation 298. When the patient may be remarks that she had thoughts to harm herself she was moved to the mental health Department of the emergency department. I discussed the case with the attending physician, as well as the mental health wrapper caser. The patient because of the concern of going through withdrawal, will be admitted to medicine with psychiatric consult. She was given Ativan while here. No seizure. These are for further documentation regarding her stay. I did discuss the case with Dr. Tracey, hospitalist.
[2017-06-07 17:15] VITALS: BP 144/91; PULSE 75; TEMP 37.1; O2SAT 98; Ht 170.2 cm; Wt 65.5 kg
[2017-06-07] MEDS ORDERED: MULTI-VITAMIN INFUSION INJ 10 ML, THIAMINE HCL INJ 100 MG, FoLIC ACID INJ 1 MG in SODIU... IV ONE (17:30)
[2017-06-07] MEDS ORDERED: THIAMINE HCL 100 MG TAB PO SCH (18:00)
[2017-06-07] MEDS: TOPIRAMATE 100 MG TAB PO SCH (19:05)
[2017-06-07] MEDS ORDERED: ACETAMINOPHEN 325 MG TAB PO SCH (19:15)
[2017-06-07 19:25] VITALS: BP 146/84; PULSE 79; TEMP 36.9; O2SAT 98
[2017-06-07 23:20] VITALS: BP 145/92; PULSE 74; TEMP 37; O2SAT 98
[2017-06-08] VITALS: O2SAT 98
[2017-06-08] MEDS ORDERED: GABAPENTIN 600MG Q6H DOSE PO SCH
[2017-06-08] MEDS: ACETAMINOPHEN 325 MG TAB PO PRN ×2 (00:19→11:35)
[2017-06-08] MEDS ORDERED: LORAZEPAM INJ 1 MG in SYRINGE 0.5 ML IV PRN (03:00)
[2017-06-08 04:03] VITALS: BP 119/75; PULSE 66; TEMP 36.5; O2SAT 98
[2017-06-08 07:05] LABS: HEMATOCRIT 40.9 % (37-47); HEMOGLOBIN 13.1 g/dL (12.0-16.0); MEAN CELL VOLUME 86.7 fL (80-100); MEAN CORPUSCULAR HEMOGLOBIN 27.8 pg (25-34); MEAN PLATELET VOLUME 9.4 fL (7.4-10.4); PLATELET COUNT 185 K/uL (130-400); RED CELL DISTRIBUTION WIDTH CV 13.7 % (11.5-14.5); RED CELL DISTRIBUTION WIDTH SD 43.2 fL (36.4-46.3); WHITE BLOOD COUNT 4.72 K/uL (4.8-10.8)
[2017-06-08 07:34] LABS: CALCIUM 7.7 mg/dl (8.5-10.1); CREATININE 0.5 mg/dl (0.60-1.20)
[2017-06-08 07:37] LABS: TOTAL PROTEIN 5.8 gm/dl (6.4-8.2)
[2017-06-08 07:38] VITALS: BP 137/84; PULSE 67; TEMP 36.7; O2SAT 97
[2017-06-08] MEDS: GABAPENTIN 600 MG TAB PO SCH ×2 (07:42→12:15)
[2017-06-08] MEDS: TOPIRAMATE 100 MG TAB PO SCH (07:43)
[2017-06-08 07:45] LABS: POTASSIUM 3.7 mmol/L (3.5-5.1)
[2017-06-08] MEDS ORDERED: THIAMINE HCL 100 MG TAB PO SCH (09:00)
[2017-06-08] MEDS ORDERED: MULTIVITAMIN TAB PO SCH (09:00)
[2017-06-08] MEDS ORDERED: PANTOprazole SOD 40 MG TAB PO SCH (09:00)
--- NOTE | 2017-06-08 09:55 | Progress Note ---
Subjective Date of Service: Jun 08, 2017. Subjective Pt evaluation today including: conversation w/ patient, physical exam, lab review, review of studies, review of inpatient medication list Saw/examined the patient in room 216 c/o abdominal pain with some nausea and diarrhea; no vomiting episodes +anxious, +depression Denies chest pain also c/o migraines Problem List Medical Problems: (1) Alcohol intoxication Status: Acute (2) Alcohol use with intoxication Status: Acute (3) Diffuse abdominal pain Status: Acute (4) Gastritis Status: Acute (5) Left ankle sprain Status: Acute (6) Moderate left ankle sprain Status: Acute (7) Mood disorder Status: Acute (8) Upper GI bleed Status: Acute Review of Systems Constitutional: No fever, No chills Respiratory: No shortness of breath Cardiac: No chest pain Abdomen: + pain, + nausea, + diarrhea, No vomiting, No constipation, No GI bleeding Heme: No abnormal bleeding/bruising Medications Current Inpatient Medications Medications (Trade) Dose Ordered Sig/Saurabh Route Start Time Stop Time Status Last Admin Dose Admin Ondansetron HCl (Zofran Inj) 4 mg Q6H PRN IV 06/07/17 16:00 07/07/17 15:59 Lorazepam (Ativan Tab) PRN Dosing -Active Protocol UD PRN PO 06/07/17 16:15 07/07/17 16:14 Lorazepam (Ativan Inj) PRN Dosing -Active Protocol Q1H PRN IV 06/07/17 16:15 07/07/17 16:14 Lorazepam (Ativan Inj) 0.5 mg Q6 PRN IV 06/07/17 16:15 07/07/17 16:14 Topiramate (Topamax Tab) 100 mg BID PO 06/07/17 21:00 07/07/17 20:59 06/08/17 07:43 100 MG Acetaminophen (Tylenol Tab) 650 mg Q4H PRN PO 06/07/17 19:15 07/07/17 19:14 06/08/17 00:19 650 MG Gabapentin (Neurontin Tab) 600 mg QID PO 06/08/17 09:00 07/08/17 08:59 06/08/17 07:42 600 MG Pantoprazole Sodium (Protonix Tab) 40 mg QAM PO 06/08/17 09:00 07/08/17 08:59 06/08/17 07:42 40 MG Thiamine HCl (Vitamin B-1 Tab) 100 mg QAM PO 06/08/17 09:00 07/08/17 08:59 06/08/17 07:43 100 MG Folic Acid (Folvite Tab) 1 mg QAM PO 06/08/17 09:00 07/08/17 08:59 06/08/17 07:42 1 MG Multivitamins (Multivitamin Tab) 1 tab QAM PO 06/08/17 09:00 07/08/17 08:59 06/08/17 07:43 1 TAB Lorazepam 1 mg/ Syringe 1 ml @ 0.5 mls/min Q30M PRN IV 06/08/17 03:00 07/08/17 02:59 Objective Vital Signs Date Time Temp Pulse Resp B/P (MAP) Pulse Ox O2 Delivery O2 Flow Rate FiO2 06/08/17 08:00 Room Air 06/08/17 07:38 36.7 67 20 137/84 (101) 97 Room Air 06/08/17 04:03 36.5 66 16 119/75 (90) 98 Room Air 06/08/17 04:02 Room Air 06/08/17 00:00 98 Room Air 06/07/17 23:20 37.0 74 16 145/92 (109) 98 Room Air 06/07/17 20:00 Room Air 06/07/17 19:25 36.9 79 16 146/84 (104) 98 Room Air 06/07/17 17:15 37.1 75 16 144/91 98 Room Air 06/07/17 16:50 36.8 97 20 129/74 92 06/07/17 15:41 97 20 129/74 92 Room Air 06/07/17 13:50 93 20 139/68 96 Room Air 06/07/17 10:19 36.8 81 18 126/63 97 Room Air 06/07/17 09:48 96 18 142/91 99 Room Air Physical Exam General Appearance: no apparent distress Respiratory/Chest: no respiratory distress, no accessory muscle use Cardiovascular: regular rate, rhythm, no edema, no murmur Abdomen: normal bowel sounds, soft, + tenderness (tender to touch in the epigastric region) Extremities: normal inspection, no pedal edema Neurologic/Psychiatric: no motor/sensory deficits, alert, normal mood/affect Skin: normal color Lymphatic: no adenopathy Laboratory Results Last 24 Hours Test 06/07/17 10:55 06/07/17 11:09 06/07/17 11:10 06/08/17 06:48 Urine Color YELLOW Urine Appearance CLOUDY Urine pH 7.0 Urine Specific [place] 1.020 Urine Protein NEG Urine Glucose (UA) NEG Urine Ketones NEG Urine Occult Blood NEG Urine Nitrite NEG Urine Bilirubin NEG Urine Urobilinogen NEG Urine Leukocyte Esterase NEG Urine WBC (Auto) 1-5 /hpf Urine RBC (Auto) 0-4 /hpf Urine Hyaline Casts (Auto) 5-10 /lpf Urine Epithelial Cells (Auto) >30 /lpf Urine Bacteria (Auto) 1+ Urine Test NEG Urine Opiates Screen NEG Urine Methadone, Qualitative NEG Urine Barbiturates NEG Urine Phencyclidine (PCP) Level NEG Ur Amphetamine/Methamphetamine NEG MDMA (Ecstasy) Screen NEG Urine Benzodiazepines Screen NEG Urine Cocaine Metabolite NEG Urine Marijuana (THC) NEG White Blood Count 5.12 K/uL 4.72 K/uL Red Blood Count 4.46 M/uL 4.72 M/uL Hemoglobin 12.2 g/dL 13.1 g/dL Hematocrit 38.1 % 40.9 % Mean Corpuscular Volume 85.4 fL 86.7 fL Mean Corpuscular Hemoglobin 27.4 pg 27.8 pg Mean Corpuscular Hemoglobin Concent 32.0 g/dl 32.0 g/dl Platelet Count 230 K/uL 185 K/uL Mean Platelet Volume 8.9 fL 9.4 fL Neutrophils (%) (Auto) 49.6 % Lymphocytes (%) (Auto) 39.3 % Monocytes (%) (Auto) 8.2 % Eosinophils (%) (Auto) 2.3 % Basophils (%) (Auto) 0.6 % Neutrophils # (Auto) 2.54 K/uL Lymphocytes # (Auto) 2.01 K/uL Monocytes # (Auto) 0.42 K/uL Eosinophils # (Auto) 0.12 K/uL Basophils # (Auto) 0.03 K/uL RDW Standard Deviation 43.3 fL 43.2 fL RDW Coefficient of Variation 14.1 % 13.7 % Immature Granulocyte % (Auto) 0.0 % Immature Granulocyte # (Auto) 0.00 K/uL Salicylates Level 2.9 mg/dl Acetaminophen Level 2 ug/ml Total Bilirubin 0.1 mg/dl 0.5 mg/dl Direct Bilirubin < 0.1 mg/dl Aspartate Amino Transf (AST/SGOT) 22 U/L 28 U/L Alanine Aminotransferase (ALT/SGPT) 18 U/L 21 U/L Alkaline Phosphatase 56 U/L 63 U/L Total Protein 5.9 gm/dl 5.8 gm/dl Albumin 3.2 gm/dl 3.0 gm/dl Lipase 142 U/L 165 U/L Thyroid Stimulating Hormone (TSH) 0.197 uIu/ml Sodium Level 141 mmol/L Potassium Level 3.7 mmol/L Chloride Level 113 mmol/L Carbon Dioxide Level 20 mmol/L Anion Gap 7.0 mmol/L Blood Urea Nitrogen 13 mg/dl Creatinine 0.50 mg/dl Est Creatinine Clear Calc Drug Dose 135.3 ml/min Estimated GFR () 133.6 Estimated GFR (Non- 115.3 BUN/Creatinine Ratio 25.3 Random Glucose 79 mg/dl Calcium Level 7.7 mg/dl Globulin 2.8 gm/dl Albumin/Globulin Ratio 1.1 Assessment and Plan This is a 46 year old female with a PMH of depression/anxiety, hx. of alcohol abuse, alcoholic neuropathy - presents with excessive alcohol use, depression, and suicidal ideation Alcohol Abuse has been alcohol free for three years; relapsed about 5 weeks ago due to personal stressors states she had been in a bad relationship and started drinking heavily again passed out from drinking and was brought to the ED by police has a history of DTs and seizures from withdrawal currently, she feels anxious and nauseous, but looks comfortable will continue Gabapentin 600mg QID Ativan PRN for seizures/anxiety/agitation continue multivitamin, thiamine, folic acid Depression/Suicidal Ideation is currently not on any maintenance medications for depression/anxiety states she might have stated she was suicidal yesterday due to frustration currently with a one-to-one psych consulted for further input at one point, she took Remeron for depression inpatient vs. outpatient unit and alcohol rehab as per psych Alcohol Induced Polyneuropathy cont. Gabapentin GERD PPI Hx. of Migraines will continue Topamax DVT ppx SCDs FULL CODE
[2017-06-08 10:30] VITALS: BP 114/68; PULSE 60; TEMP 36.9; O2SAT 95
[2017-06-08] MEDS ORDERED: TRAMADOL HCL 50 MG TAB PO ONE (10:30)
[2017-06-08] MEDS ORDERED: THM100 PO ×3 (12:03→12:21)
[2017-06-08] MEDS ORDERED: NRN800 PO ×3 (12:03→12:21)
[2017-06-08] MEDS ORDERED: MULT-890 PO ×3 (12:03→12:21)
[2017-06-08] MEDS ORDERED: FLV1 PO ×3 (12:03→12:21)
[2017-06-08] MEDS ORDERED: ASPI-391 PO ×3 (12:03→12:21)
[2017-06-08] MEDS ORDERED: OMEP40CA41 PO ×3 (12:03→12:21)
[2017-06-08] MEDS ORDERED: TOPI100T45 PO ×3 (12:03→12:21)
[2017-06-08] MEDS ORDERED: NRN600 PO ×3 (12:03→12:21)
--- NOTE | 2017-06-08 12:09 | Progress Note ---
Progress Note Date of Service Jun 08, 2017. Progress Note Update: I spoke with the patient and case management - plan is to discharge patient and have her follow-up with [facility] violence [facility] in [place], [place]. I spoke with the mental health unit - they state that she can be discharged safely; no concern for suicidality. Depression can be managed as outpatient in terms of Remeron vs. SSRI. Currently she feels no withdrawal symptoms. Told patient that with any withdrawal symptoms - to go to the nearest ER. She will be given higher dose of Gabapentin 800mg TID for a few days and then transitioned back to 600mg TID. She will also be discharged with folic acid, thiamine, and multivitamins.
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
--- NOTE | 2017-06-08 12:14 | Discharge Instructions ---
Discharge Instructions Date of Service Jun 08, 2017. Admission Reason for Admission: Alcohol Dependence With Withdrawal Discharge Discharge Diagnosis / Problem: Alcohol Abuse, Depression Discharge Goals Goal(s): Decrease discomfort, Improve function, Diagnostic testing, Therapeutic intervention Activity Recommendations Activity Limitations: resume your previous activity . Instructions / Follow-Up Instructions / Follow-Up You will be discharged with Gabapentin 800mg three times day for 3 days; then after that, switch back to 600mg three times a day Please take folic acid, thiamine, multivitamins If you have any withdrawal symptoms (anxiety, nausea, tremors, etc.) please go to the nearest ER Plan is for you to go [facility] the [facility] in [place], [place] Please see mental health specialist as an outpatient for your depression Current Hospital Diet Patient's current hospital diet: Clear Liquid Diet Discharge Diet Recommended Diet: Regular Diet Pending Studies Studies pending at discharge: no Medical Emergencies . Who to Call and When: Medical Emergencies: If at any time you feel your situation is an emergency, please call 911 immediately. . Non-Emergent Contact Non-Emergency issues call your: Primary Care Provider . . "Provider Documentation" section prepared by Marybel Noonan. . [place] Drug Monitoring Program Search Results: patient reviewed within database, see additional documentation Drug Monitoring Findings: Multiple addresses noted for this patient. She tells me she lives in [place], but has moved to [facility].
[2017-06-08 12:16] VITALS: BP 137/84; PULSE 67; TEMP 36.7; O2SAT 97
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
[2017-06-08] MEDS ORDERED: GABAPENTIN 600MG Q8H DOSE PO SCH (14:00)
[2017-06-09] MEDS ORDERED: GABAPENTIN 600MG Q12H DOSE PO SCH (18:00)
--- NOTE | 2017-06-10 03:18 | EMERGENCY ROOM VISIT NOTE ---
History First contact with patient: 04:45 Chief Complaint: ALCOHOL OVERDOSE Stated Complaint: ETOH History of Present Illness The patient is a 46 year old female who presents to the Emergency Room with complaints of alcohol intoxication. Patient was found passed out at [facility]. Patient states she drank a lot of alcohol today. Patient denies fall, chest pain, dyspnea, abdominal pain or any other medical complaints. She is living at a [facility] locally. She has been seen several times in the ER the past month for various complaints. Review of Systems An 10 system review of systems was completed with positives and pertinent negatives listed in the HPI. Past Medical/Surgical History Medical Problems: (1) Alcohol dependence (2) H/O: GI bleed (3) Migraines (4) Polyneuropathy (5) Sciatica (6) Unspecified mood [affective] disorder Surgical Problems: (1) H/O section (2) History of gastrectomy (3) Ulcer Family History Diabetes mellitus FH: cancer Hypertension Social History Smoking Status: Unknown if Ever Smoked Alcohol Use: none Drug Use: none Housing Status: other Current/Historical Medications Scheduled Folic Acid (Folic Acid), 1 MG PO QAM Gabapentin (Gabapentin), 800 MG PO TID Gabapentin (Gabapentin), 600 MG PO TID Multiple Vitamin (Daily-Lashaun), 1 TAB PO QAM Omeprazole (Prilosec), 40 MG PO DAILY Thiamine HCl (Vitamin B-1), 100 MG PO QAM Topiramate (Topamax), 100 MG PO BID Scheduled PRN Rfcisjt-Rkjtwmrsflwcj-Ddpzaypi (Excedrin Extra Strength), 1 TAB PO Q6H PRN for Pain Physical Exam Vital Signs Date Time Temp Pulse Resp B/P (MAP) Pulse Ox O2 Delivery O2 Flow Rate FiO2 06/07/17 15:41 97 20 129/74 92 Room Air 06/07/17 13:50 93 20 139/68 96 Room Air 06/07/17 10:19 36.8 81 18 126/63 97 Room Air 06/07/17 09:48 96 18 142/91 99 Room Air 06/07/17 08:37 86 16 110/75 99 Room Air 06/07/17 07:51 85 16 108/72 94 Room Air 06/07/17 07:46 85 06/07/17 06:31 116/83 06/07/17 06:11 91 18 94 Room Air 06/07/17 06:06 90 16 94 Room Air 06/07/17 06:01 136/85 06/07/17 05:31 89 18 114/66 95 Room Air 06/07/17 04:48 Room Air 06/07/17 03:49 87 Physical Exam PHYSICAL EXAM: VITALS: Vitals are noted on the nurse's note and reviewed by myself. Vital signs stable. GENERAL: White female with EtOH odor, in no acute distress, nondiaphoretic, well -developed well-nourished. The patient is visibly intoxicated. SKIN: The skin was without obvious lacerations, abrasions, or rashes. There is no tenting of the skin. Capillary reflex less than 2 seconds. HEENT: Normocephalic, atraumatic. PERRLA. EOMI. Conjunctiva with mild injection without icterus. Tympanic membranes without erythema or effusion bilaterally no hemotympanum. External auditory canals are clear. Nares patent bilaterally. No epistaxis. Oropharynx without erythema or exudate. Uvula midline. Oral mucosal moist. No lymphadenopathy. Neck is supple without cervical spine tenderness. HEART: Regular rate and rhythm without murmurs gallops or rubs. Peripheral pulses 2+. LUNGS: Clear to auscultation bilaterally without wheezes, rales or rhonchi. ABDOMEN: Positive bowel sounds x 4. Normal tympanic percussion. Soft, nontender, without masses or organomegaly. MUSCULOSKELETAL: Gross motor function of the upper and lower extremities intact. The patient has a staggering gait. NEUROLOGIC: The patient is visibly intoxicated. Once they were more sober they were alert and oriented to person place and time. Medical Decision & Procedures Laboratory Results Test 06/07/17 04:11 06/07/17 10:55 06/07/17 11:09 06/07/17 11:10 Ethyl Alcohol mg/dL 298.0 mg/dl (0-3) Urine Color YELLOW Urine Appearance CLOUDY (CLEAR) Urine pH 7.0 (4.5-7.5) Urine Specific [place] 1.020 (1.000-1.030) Urine Protein NEG (NEG) Urine Glucose (UA) NEG (NEG) Urine Ketones NEG (NEG) Urine Occult Blood NEG (NEG) Urine Nitrite NEG (NEG) Urine Bilirubin NEG (NEG) Urine Urobilinogen NEG (NEG) Urine Leukocyte Esterase NEG (NEG) Urine WBC (Auto) 1-5 /hpf (0-5) Urine RBC (Auto) 0-4 /hpf (0-4) Urine Hyaline Casts (Auto) 5-10 /lpf (0-5) Urine Epithelial Cells (Auto) >30 /lpf (0-5) Urine Bacteria (Auto) 1+ (NEG) Urine Test NEG (NEG) Urine Opiates Screen NEG (NEG) Urine Methadone, Qualitative NEG (NEG) Urine Barbiturates NEG (NEG) Urine Phencyclidine (PCP) Level NEG (NEG) Ur Amphetamine/Methamphetamine NEG (NEG) MDMA (Ecstasy) Screen NEG (NEG) Urine Benzodiazepines Screen NEG (NEG) Urine Cocaine Metabolite NEG (NEG) Urine Marijuana (THC) NEG (NEG) Immature Granulocyte % (Auto) 0.0 % White Blood Count 5.12 K/uL (4.8-10.8) Red Blood Count 4.46 M/uL (4.2-5.4) Hemoglobin 12.2 g/dL (12.0-16.0) Hematocrit 38.1 % (37-47) Mean Corpuscular Volume 85.4 fL (80-100) Mean Corpuscular Hemoglobin 27.4 pg (25-34) Mean Corpuscular Hemoglobin Concent 32.0 g/dl (32-36) Platelet Count 230 K/uL (130-400) Mean Platelet Volume 8.9 fL (7.4-10.4) Neutrophils (%) (Auto) 49.6 % Lymphocytes (%) (Auto) 39.3 % Monocytes (%) (Auto) 8.2 % Eosinophils (%) (Auto) 2.3 % Basophils (%) (Auto) 0.6 % Neutrophils # (Auto) 2.54 K/uL (1.4-6.5) Lymphocytes # (Auto) 2.01 K/uL (1.2-3.4) Monocytes # (Auto) 0.42 K/uL (0.11-0.59) Eosinophils # (Auto) 0.12 K/uL (0-0.5) Basophils # (Auto) 0.03 K/uL (0-0.2) Immature Granulocyte # (Auto) 0.00 K/uL (0.00-0.02) Salicylates Level 2.9 mg/dl (2.8-20) Acetaminophen Level 2 ug/ml (10-30) Direct Bilirubin < 0.1 mg/dl (0-0.2) Thyroid Stimulating Hormone (TSH) 0.197 uIu/ml (0.300-4.500) Date/Time Source Procedure Growth Status 06/07/17 10:55 Urine , Clean Catch Urine Culture - Final MORE THAN THREE TYPES OF ORGANISMS TX... Complete Medications Administered Medications (Trade) Dose Ordered Sig/Saurabh Route Start Time Stop Time Status Last Admin Dose Admin Potassium Chloride (Klor-Con M10) 30 meq STK-MED ONCE .ROUTE 06/07/17 10:06 06/07/17 10:07 DC 06/07/17 10:09 30 MEQ Lorazepam (Ativan Tab) 1 mg NOW STAT SL 06/07/17 10:19 06/07/17 10:20 DC 06/07/17 10:34 1 MG Lorazepam (Ativan Tab) 1 mg NOW STAT SL 06/07/17 13:22 06/07/17 13:24 DC 06/07/17 13:33 1 MG ED Course Prior records/ancillary studies reviewed. Triage Nursing notes reviewed. Additional history obtained from EMS. The patient's history was concerning for altered mental status and a possible alcohol overdose. Differential diagnosis: Etiologies such as alcohol intoxication, toxicologic, infection, hypoglycemia, electrolyte abnormalities, cardiac sources, intracerebral event, neurologic, as well as others were entertained. Physical examination: As above. The patient is clinically intoxicated. no trauma noted. ER treatment provided: Monitoring Aspiration precautions The patient was frequently reassessed. Diagnostic interpretation by me: Cardiac monitoring did not reveal any evidence of dysrhythmia. The labs revealed hypokalemia. The patient's blood alcohol level was 298 mg/dL. Patient was signed out to Jeff Eng PA-C pending patient sobering up and reevaluation in stable condition. Medical Decision As above Medication Reconcilliation Current Medication List: was personally reviewed by me Blood Pressure Screening Patient's blood pressure: Normal blood pressure Impression Primary Impression: Alcohol abuse Additional Impression: Hypokalemia Departure Information Prescriptions Gabapentin (Gabapentin) 600 Mg Tab 600 MG PO TID for 20 Days, #60 TABS Prov: Marybel Noonan, DO 06/08/17 Thiamine HCl (Vitamin B-1) 100 Mg Tab 100 MG PO QAM for 30 Days, #30 TAB Prov: Marybel Noonan, DO 06/08/17 Multiple Vitamin (Daily-Lashaun) 1 Tab Tab 1 TAB PO QAM for 30 Days, #30 TAB Prov: Marybel Noonan, DO 06/08/17 Folic Acid (Folic Acid) 1 Mg Tab 1 MG PO QAM for 30 Days, #30 TAB Prov: Marybel Noonan, DO 06/08/17 Lufiqll-Lssuuicyxnyud-Mjpfbnyf (EXCEDRIN EXTRA STRENGTH) 1 Tab Tab 1 TAB PO Q6H Y for Pain for 5 Days, #20 TABS Prov: Marybel Noonan, DO 06/08/17 Omeprazole (PRILOSEC) 40 Mg Cap 40 MG PO DAILY for 30 Days, #30 CAP 2 Refills TAKE THIS MEDICATION ONCE DAILY ONE HOUR BEFORE FIRST MEAL OF THE DAY Prov: Marybel Noonan, DO 06/08/17 Topiramate (TOPAMAX) 100 Mg Tab 100 MG PO BID for 10 Days, #20 TAB Prov: Marybel Noonan, DO 06/08/17 Gabapentin (Gabapentin) 800 Mg Tab 800 MG PO TID for 3 Days, #9 TABS Prov: Marybel Noonan, DO 06/08/17 Referrals Ruiz Rangel D.OMinerva (PCP) Patient Instructions My [facility] Additional Instructions Problem Qualifiers
[2017-06-11] MEDS ORDERED: GABAPENTIN 600MG X1 DOSE PO SCH (06:00)
== END 2017-06-08 12:59 | disposition home or self-care (01) | DRG 897 ==
LOC: C.EDB 03:36 → C.2T 16:00 → ENRESERV 16:43
PROVIDERS: ADMIT Hospitalist; ATTEND Family Medicine
DX: F10.229 Alcohol dependence with intoxication, unspecified (principal); F10.239 Alcohol dependence with withdrawal, unspecified; Y90.8 Blood alcohol level of 240 mg/100 ml or more; E87.6 Hypokalemia; F39 Unspecified mood [affective] disorder; F41.9 Anxiety disorder, unspecified; G62.1 Alcoholic polyneuropathy; K21.9 Gastro-esophageal reflux disease without esophagitis; G43.909 Migraine, unspecified, not intractable, without status migrainosus; F17.210 Nicotine dependence, cigarettes, uncomplicated; Z59.0 Homelessness; Z91.410 Personal history of adult physical and sexual abuse; Z91.5 Personal history of self-harm; Z79.899 Other long term (current) drug therapy; Z88.6 Allergy status to analgesic agent; Z88.8 Allergy status to other drugs, medicaments and biological substances